=== PATIENT | female | born 1995 | race Caucasian/White ===

== ENCOUNTER → 2016-11-29 | Outpatient (CLI) | payer BC ==
[2016-11-29 18:21] LABS: CH 29.2; CHCM 32.8; HCT 42.7 % (34.0-46.0); HDW 2.27; HGB 14.2 gm/dL (11.4-16.0); MCH 29.8 pg (25.0-35.0); MCHC 33.2 g/dL (31.0-37.0); MCV 89.5 fL (80.0-100.0); RBC 4.76 m/uL (3.80-5.40); RDW 12.8 % (11.5-15.5); WBC 10.1 k/uL (3.8-10.6)
[2016-11-29 18:37] LABS: ALT 34 U/L (9-52); AST 18 U/L (14-36); Alkaline Phosphatase 56 U/L (38-126); Anion Gap 10 mmol/L; Blood Urea Nitrogen 12 mg/dL (7-17); C Reactive Protein <5.0 mg/L (<10.0); Calcium 9.7 mg/dL (8.4-10.2); Carbon Dioxide 25 mmol/L (22-30); Chloride 103 mmol/L (98-107); Glucose 115 mg/dL (74-99); Non-African American GFR(MDRD) >60 (>60 ml/min/1.73 sqM); Sodium 138 mmol/L (137-145); Total Bilirubin 0.4 mg/dL (0.2-1.3)
[2016-11-29 21:33] LABS: Erythrocyte Sedimentation Rate 2 mm/hr (0-20)
[2016-11-30 01:09] LABS: Gliadin AB IgA, Deaminated NEGATIVE (NEGATIVE); Gliadin AB IgG, Deaminated NEGATIVE (NEGATIVE); Tis Transglutaminase IgA Unit <0.5 AI; Tis Transglutaminase IgG Unit <0.8 U/mL
== END | disposition home or self-care (01) ==
LOC: LABMAIN 17:39
PROVIDERS: ATTEND Internal Medicine Gastroenterology
DX: F41.9 Anxiety disorder, unspecified (principal)
CPT/HCPCS: 36415; 80053; 83516; 85027; 85652; 86140

== ENCOUNTER 2017-03-03 16:40 | Inpatient (IN) | payer BC, MEDICAID ==
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
[2017-03-03 20:34] LABS: Amphetamine Screen,Urine Not Detected (NotDetected); Barbiturate Screen,Urine Not Detected (NotDetected); Benzodiazepines Screen,Urine Not Detected (NotDetected); Cocaine Screen,Urine Not Detected (NotDetected); Methadone Screen, Urine Not Detected (NotDetected); Opiate Screen,Urine Not Detected (NotDetected); Oxycodone Screen, Urine Not Detected (NotDetected); Phencyclidine Screen,Urine Not Detected (NotDetected); Tricyclic Antidepressant,Urine Not Detected (NotDetected); Urn Cannabinoid Scrn Detected (NotDetected)
[2017-03-03] MEDS ORDERED: MAG HYDROX/AL HYDROX/SIMETH 30 ML CUP PO PRN (21:27)
[2017-03-03] MEDS ORDERED: MAGNESIUM HYDROXIDE 2,400 MG/10 ML CUP PO PRN (21:27)
[2017-03-03] MEDS ORDERED: ZIPRASIDONE 20 MG VIAL IM PRN (21:29)
[2017-03-03] MEDS ORDERED: LORazepam 2 MG/ML INJ IM PRN (21:30)
[2017-03-03] MEDS ORDERED: OLANZapine ODT 10 MG TAB PO PRN (21:31)
[2017-03-04] MEDS: LORazepam 1 MG TAB PO PRN (00:20)
[2017-03-04 08:31] LABS: Basophils % (A) 1 %; Eosinophils # (A) 0.1 k/uL (0-0.7); Eosinophils % (A) 2 %; HCT 45.1 % (34.0-46.0); HGB 14.5 gm/dL (11.4-16.0); Lymphocytes % (A) 24 %; MCH 28.4 pg (25.0-35.0); MCHC 32.1 g/dL (31.0-37.0); MCV 88.4 fL (80.0-100.0); Mean Platelet Volume 7.5; Monocytes # (A) 0.5 k/uL (0-1.0); Monocytes % (A) 6 %; Neutrophils # (A) 5.4 k/uL (1.3-7.7); Neutrophils % (A) 66 %; Platelet Count 253 k/uL (150-450); RDW 14.1 % (11.5-15.5); WBC 8.2 k/uL (3.8-10.6)
[2017-03-04 09:15] LABS: ALT 33 U/L (9-52); AST 23 U/L (14-36); Albumin 4.8 g/dL (3.5-5.0); Alkaline Phosphatase 47 U/L (38-126); Anion Gap 14 mmol/L; Blood Urea Nitrogen 10 mg/dL (7-17); Calcium 10.3 mg/dL (8.4-10.2); Carbon Dioxide 25 mmol/L (22-30); Chloride 103 mmol/L (98-107); Glucose 79 mg/dL (74-99); Sodium 142 mmol/L (137-145); Total Bilirubin 1.4 mg/dL (0.2-1.3); Total Protein 7.5 g/dL (6.3-8.2)
[2017-03-04] MEDS: NICOTINE 14MG/24HR PATCH TRANSDERM SCH (09:55)
[2017-03-04] MEDS: ARIPiprazole 10 MG TAB PO SCH (09:55)
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
[2017-03-05] MEDS: NICOTINE 14MG/24HR PATCH TRANSDERM SCH (09:34)
[2017-03-05] MEDS: ARIPiprazole 10 MG TAB PO SCH (09:34)
--- NOTE | 2017-03-05 12:28 | P.PN ---
Progress Note - Text interval history: The patient is found in group she follows me to an interview room. She continues to demonstrate a disorganized thought process and symptoms of psychosis. She did not answer any of my questions in a linear fashion. She continues to refuse the Abilify I attempted to discuss this with her. Mental status exam: The patient is a thin female dressed in her own clothing wearing all black. She has visible tattoos on her upper extremity and neck. She continues to demonstrate disorganized symptoms of psychosis or thought process is not well organized. She talks slowly but moves from topic to topic without a clear link. She asked me questions as if I am involved in these delusional thoughts. Insight and judgment are poor. He demonstrates no verbal or physical aggressiveness she demonstrates no abnormal involuntary movements. Plan: The patient remains acutely psychotic. She is refusing medication. We are awaiting deferral conference. We are monitoring her for safety and encourage her participation in the milieu. We will continue to offer the Abilify as written.
--- NOTE | 2017-03-05 22:17 | CONS ---
CONSULTATION DATE OF SERVICE: 03/05/2017 I am covering for Dr. Cuellar. Please note the patient is extremely paranoid, not willing to be interviewed or examined. Please call when the patient's affect improves. EDELL / IJN: [id number] /
[2017-03-06] MEDS: ARIPiprazole 10 MG TAB PO SCH (09:55)
[2017-03-06] MEDS: NICOTINE 14MG/24HR PATCH TRANSDERM SCH (09:55)
--- NOTE | 2017-03-06 15:36 | P.PN ---
Progress Note - Text Interval history: The patient is found in the hallway she follows me to an interview room. She initially asks if we can talk even though she is not wearing shoes. During this session she indicates she feels that she has been "bought". She continues to feel that the food is poisoned and she has not been eating well. I did discuss this with staff and with encouragement they were able get her to eat some food during lunch. The patient states she doesn't believe I'm her doctor and she does not believe that this is a psychiatric unit. Mental status exam: The patient is alert she seated calmly in the chair. Because of her paranoid and persecutory delusions she is fairly argumentative. She indicates she does not trust the information I'm providing to her. There is some disorganization of thought process. Insight and judgment are poor. She answers no other questions asked of her. It is quite difficult getting her to leave the interview room as she will sit there for several minutes before leaving. Plan: The patient's is offered Abilify she is not complying with the medication. We will await intervention via the court to evaluate her need for involuntary treatment. Vital signs reviewed. We will encourage her to appropriately hydrate and eat.
[2017-03-06] MEDS: LORazepam 1 MG TAB PO PRN (20:51)
[2017-03-06] MEDS: ACETAMINOPHEN TAB 325 MG TAB PO PRN (20:51)
[2017-03-07] MEDS: ARIPiprazole 10 MG TAB PO SCH (08:48)
[2017-03-07] MEDS: NICOTINE 14MG/24HR PATCH TRANSDERM SCH (08:48)
[2017-03-07] MEDS: LORazepam 1 MG TAB PO PRN (08:48)
[2017-03-07] MEDS: IBUPROFEN 600 MG TAB PO PRN (09:33)
--- NOTE | 2017-03-07 12:07 | P.PN ---
Progress Note - Text Interval history: The patient is found in her room she follows me to an interview room. She participated more in the conversation. She states that she is not sure what happened she feels that this is all a "set up" regarding her admission here. She states she met with social work this morning and she is concerned that they are going to make her a 7-year-old and adopted her out. She reports having feelings of anxiety and panic earlier in the day. We tried to review her medications. She did comply with the Abilify for the first time today. Mental status exam: The patient is an alert female appearing her stated age. She is dressed in her own clothing she has a disheveled appearance. Eye contact is intermittent. She has spontaneous speech she is able to provide some brief answers to questions asked in a linear fashion. She continues to demonstrate a paranoid and persecutory thought content. Thought process can be disorganized at times. She was not argumentative today compared to our past several sessions. Insight and judgment are impaired. She demonstrates no verbal or physical aggressiveness she demonstrates no abnormal involuntary movements. She is oriented to person place and date. Plan: The patient will continue on the Abilify we will consider titrating the dose further. Vital signs reviewed her blood pressures elevated as well as her pulse we will monitor further. She is encouraged to participate in the milieu as she can tolerate. Reality orientation will be provided when possible.
[2017-03-07] MEDS ORDERED: IBUPROFEN 600 MG TAB PO SCH (13:00)
[2017-03-07 17:50] LABS: Basophils # (A) 0.1 k/uL (0-0.2); Basophils % (A) 1 %; Eosinophils # (A) 0.2 k/uL (0-0.7); Eosinophils % (A) 2 %; HCT 49.1 % (34.0-46.0); HGB 15.7 gm/dL (11.4-16.0); Lymphocytes # (A) 2.8 k/uL (1.0-4.8); Lymphocytes % (A) 33 %; MCV 87.6 fL (80.0-100.0); Mean Platelet Volume 7.3; Monocytes # (A) 0.5 k/uL (0-1.0); Monocytes % (A) 6 %; Neutrophils # (A) 4.7 k/uL (1.3-7.7); Neutrophils % (A) 56 %; Platelet Count 276 k/uL (150-450); RDW 14.2 % (11.5-15.5); WBC 8.4 k/uL (3.8-10.6)
[2017-03-07 17:59] LABS: ALT 34 U/L (9-52); AST 22 U/L (14-36); Albumin 5.1 g/dL (3.5-5.0); Alkaline Phosphatase 50 U/L (38-126); Anion Gap 13 mmol/L; Blood Urea Nitrogen 10 mg/dL (7-17); Calcium 10.9 mg/dL (8.4-10.2); Carbon Dioxide 29 mmol/L (22-30); Chloride 99 mmol/L (98-107); Glucose 94 mg/dL (74-99); Potassium 4.2 mmol/L (3.5-5.1); Sodium 141 mmol/L (137-145); Total Bilirubin 0.9 mg/dL (0.2-1.3)
[2017-03-07] MEDS ORDERED: ONDANSETRON ODT 4 MG TAB PO PRN (19:53)
[2017-03-08] MEDS: ARIPiprazole 10 MG TAB PO SCH (09:51)
[2017-03-08] MEDS: NICOTINE 14MG/24HR PATCH TRANSDERM SCH (09:53)
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
[2017-03-08] MEDS: ACETAMINOPHEN TAB 325 MG TAB PO PRN (20:19)
[2017-03-09] MEDS: LORazepam 1 MG TAB PO PRN (04:34)
[2017-03-09] MEDS: ACETAMINOPHEN TAB 325 MG TAB PO PRN ×2 (04:34→22:30)
[2017-03-09] MEDS: ARIPiprazole 15 MG TAB PO SCH (09:10)
[2017-03-09] MEDS: NICOTINE 14MG/24HR PATCH TRANSDERM SCH (09:10)
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
[2017-03-10] MEDS: ARIPiprazole 15 MG TAB PO SCH (09:06)
[2017-03-10] MEDS: NICOTINE 14MG/24HR PATCH TRANSDERM SCH (09:06)
--- NOTE | 2017-03-10 09:30 | P.PN ---
Progress Note - Text Interval history: The patient is found in the help desk associate she follows me to an interview room. She reports that her mood is better. She states that she had a good visit from her ex-boyfriend Chilo. It appears there was an unscheduled family meeting conducted yesterday. The social work notes were reviewed. It appears the meeting did not go well. They were both described as being argumentative and it appears the meeting was unproductive overall. The patient states her father is living in the past and doesn't feel that he is trying to help her. She is mainly focused on her upcoming surgery to remove her breast implants. She feels that toxins are being released from them which have caused this whole psychiatric event. She states she wants to be discharged prior to the surgery next week. She indicates that she is doing better with eating. She describes having some difficulty with sleep last night she was offered Zyprexa Zydis and reports feeling terrible after taking that. Mental status exam: The patient is alert she is a thin female appearing her stated age she has a disheveled appearance hygiene is adequate. She continues to participate more in the session each day. She is endorsing no hallucinations she is reporting no suicidal or homicidal ideation. Symptoms of psychosis and thought disorganization continue but they are diminishing. Insight and judgment are limited. She demonstrates no verbal or physical aggressiveness. She demonstrates no abnormal involuntary movements. Plan: The patient's will continue on the Abilify 15 mg daily. She has a court hearing scheduled for tomorrow. I anticipate if she continues to improve she may be appropriate for discharge early next week. We will continue to monitor her ability to participate in her activities of daily living including eating bathing etc. Vital signs reviewed.
[2017-03-11] MEDS: ARIPiprazole 15 MG TAB PO SCH (08:34)
[2017-03-11] MEDS: NICOTINE 14MG/24HR PATCH TRANSDERM SCH (08:35)
--- NOTE | 2017-03-11 11:29 | P.PN ---
Progress Note - Text Interval history: The patient is found in her room she follows me to an interview room. She did attend court this morning but decided to stipulate to the treatment order. She returns from court and states that her mood is "shit" . At first her thoughts are not well organized and she appears suspicious. As the conversation progresses she shares her concerns that she has no one in her life that she can trust. She feels that her parents both lying and manipulating her. She states both Chilo and Jamel aren't using her and she cannot trust them. She worries for the well-being of her son and doesn't know how she'll support herself and him without these other people. Mental status exam: The patient is a thin female at first she seated in a guarded posture. She has been irritable look but as the session progresses she becomes tearful and is more expressive in how she feels. She was able to demonstrate improved insight with some of the conversation. Some paranoid thinking still is present however and she is very distrustful. Over the course of our sessions over the last several days she demonstrates a difficulty retaining information we have previously discussed. She is reporting no auditory or visual hallucinations she is reporting no suicidal or homicidal ideation. Plan: The patient will continue on the Abilify 15 mg daily. She is demonstrating slow improvement. I was able to review neuropsych testing when she was a teenager which demonstrated a below average cognitive ability. She was noted to likely have oppositional defiant symptoms as well. We will continue to monitor her for safety and encourage her full participation in the milieu. Vital signs reviewed.
[2017-03-12] MEDS: NICOTINE 14MG/24HR PATCH TRANSDERM SCH (08:55)
[2017-03-12] MEDS: ARIPiprazole 15 MG TAB PO SCH (08:55)
[2017-03-12] MEDS: IBUPROFEN 600 MG TAB PO PRN (16:58)
--- NOTE | 2017-03-12 19:51 | PN ---
PROGRESS NOTE DATE OF SERVICE: 03/12/2017 CHIEF COMPLAINT: The patient was brought to the emergency room by police escort. She had disorganized behavior. She was making statements that the family and government were out to kill her. She was quite disorganized and distressed. INTERVAL HISTORY: The patient has been doing fairly well. She had a quiet evening last night. She slept fair. Today she has been up. She has been in a good mood today. It is noted that I reviewed the note of Dr. Angel from yesterday, where her mood seemed to be down. What she described was feeling very anxious and uncertain about the court process because she did not understand all of the issues related to the involuntary treatment order. She said today she has a better grasp of it and now sees that there she really does not have any significant concerns about it. I discussed the nature of a 90-day treatment order. She seemed to be comfortable with the process. She said in fact she wants to get into individual therapy and has no issues working with [facility] and continuing on medications. She has been out in the day area. She has been fairly active. She does interact with others. She attends groups and has been able to share some fairly significant issues. The group later described the patient as follows, "The patient demonstrated insight and investment into the activity." The patient had questions about discharge planning. She has not had change in her general health. She tolerates her psychotropic medications. MENTAL STATUS: The patient gave good eye contact. Psychomotor activity was a little restless. Her speech was clear. She was spontaneous and interactive. Her affect was in a reasonable range. Her mood was rather upbeat. She smiled. She was friendly. She did not appear to be distressed. ASSESSMENT: I will continue the current diagnosis and treatment plan. I will continue psychotropic medications the same. I had an extensive discussion with the patient regarding issues regarding a 90-day treatment order. She seemed to be understanding the issues well and saw that as no impediment to her own progress. MMODL / IJN: [id number] /
[2017-03-12] MEDS: LORazepam 1 MG TAB PO PRN (21:41)
[2017-03-13] MEDS: ARIPiprazole 15 MG TAB PO SCH (09:00)
[2017-03-13] MEDS: LORazepam 1 MG TAB PO PRN ×3 (09:01→18:16)
[2017-03-13] MEDS: NICOTINE 14MG/24HR PATCH TRANSDERM SCH (09:47)
--- NOTE | 2017-03-13 19:10 | PN ---
PROGRESS NOTE DATE OF SERVICE: 03/13/2017. CHIEF COMPLAINT: The patient was brought to the emergency room by police. She had disorganized behavior. She was making statements that the family and government were out to kill her. She was quite disorganized and distressed. INTERVAL HISTORY: Patient has been doing fairly well. She had some distress on Tuesday after the court hearing. By her account she said she just did not understand all of the paperwork and other issues relating to that. Once she was able to get some clarifications, she said she has felt much better. She was doing well yesterday. She continues to do well today. She comes out in the unit. She will interact with others. She has had a good mood. She has been attending groups and has been appropriate. She has not had change in her general health. She tolerates his psychotropic medications. MENTAL STATUS: Patient gave good eye contact. Psychomotor activity and speech were normal. Her affect was in a reasonable range. She smiled. She was friendly. Her mood was even. She was not distressed. ASSESSMENT: I will continue the current diagnosis and treatment plan. I will continue psychotropic medications the same. Patient appears to be making good progress. I would anticipate early discharge. MMODL / IJN: [id number] /
[2017-03-14] MEDS: ARIPiprazole 15 MG TAB PO SCH (08:26)
[2017-03-14] MEDS: NICOTINE 14MG/24HR PATCH TRANSDERM SCH (08:34)
[2017-03-14 09:07] VITALS: BMI 20.5
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
[2017-03-14] MEDS: LORazepam 1 MG TAB PO PRN ×2 (12:46→22:12)
[2017-03-15 07:21] VITALS: BP 89/52; PULSE 90; RESP 16; TEMP 98.8
[2017-03-15] MEDS: ARIPiprazole 15 MG TAB PO SCH (08:51)
--- NOTE | 2017-03-15 09:42 | P.DS ---
Providers Date of admission: 03/03/17 20:24 Expected date of discharge: 03/15/17 Attending physician: Sumeet Angel Consults: 03/03/17 21:27 Consult Physician Routine Consulting Provider: Haris Cuellar Consult Reason/Comments: Medical Management Do you want consulting provider notified?: Already Contacted Primary care physician: Haris Cuellar - Discharge Diagnosis(es) (1) Psychosis Current Visit: Yes Status: Acute Priority: High Hospital Course: Brief summary of admission note: This patient is a 21-year-old single female who was admitted to the mental health unit through the emergency room for acute psychosis. She was petition by a delicatessen goods stock clerk's deputy as the patient was found outside of her ex-boyfriend's house in her car for 6 hours. She had reported her concern that his family and the government were out to kill her. She had accused the police detention attendant of being sent to kill her and that her ex- boyfriend's family was going to kill her son. With initial sessions the patient was very guarded suspicious and difficult to interview. For full details please refer to my psychiatric evaluation dated 03/04/2017. Summary of hospital course: The patient was admitted to the mental health unit on a petition and clinical certificate. She participated in a deferral conference with her briar wood sorter but decided not to defer. However when it was time for her hearing she decided to stipulate to a treatment order. The patient was started on Abilify and the dose was titrated during the course of her stay. She tolerated the medication without any complaint of side effect. Very slowly her symptoms of psychosis remitted. Over the last 2 days she has demonstrated significant improvement. She previously was demonstrating severe disorganization of thought and labile affect and that has dramatically improved as well. She demonstrated no aggressive behavior. She is noting a resolution of any paranoid thoughts. She has demonstrated future oriented thinking. She was seen by the internal medicine physician for routine history and physical exam. Mental status exam: The patient is a thin female appearing her stated age. Hygiene grooming are appropriate and much improved. She reports her mood is good. She is happy that she is being discharged today. She is reporting no suicidal or homicidal ideation intent or plan. At no time did she make any suicidal or homicidal statements. She is endorsing no auditory or visual hallucinations she is endorsing no specific delusions. She no longer demonstrates evidence of paranoid thinking. Affect is appropriately reactive and appears euthymic area she demonstrates no verbal or physical aggressiveness. She demonstrates no abnormal involuntary movements. She is oriented to person place and date. Insight and judgment have significantly improved. She does not appear hypomanic or manic and demonstrates no tangential thinking loose associations or flight of ideas. Impressions 1. Psychosis unspecified, rule out primary psychotic etiology 2. Rule out cannabis use disorder Plan: The patient will be discharged mental health unit to return home. She will continue on Abilify 15 mg daily. Social work will arrange [facility] She is instructed to abstain from any use of alcohol or marijuana and she is agreeable. There is no imminent safety risk she is appropriate for transition to outpatient care. She is instructed to return to the hospital any acute safety concerns. Patient Condition at Discharge: Stable Plan - Discharge Summary Discharge Rx Participant: No New Discharge Prescriptions: New ARIPiprazole [Abilify] 15 mg PO DAILY #30 tab Discharge Medication List ARIPiprazole [Abilify] 15 mg PO DAILY #30 tab 03/15/17 [Rx] Follow up Appointment(s)/Referral(s): [facility] [Outside] - 03/17/17 12:30 pm ([place] ) Haris Cuellar MD [Primary Care Provider] - 1-2 days
== END 2017-03-15 10:46 | disposition home or self-care (01) | DRG 885 ==
LOC: EC 16:40 → 3MHU 20:24
PROVIDERS: ADMIT Psychiatry & Neurology Psychiatry; ATTEND Psychiatry & Neurology Psychiatry
DX: F23 Brief psychotic disorder (principal); F12.10 Cannabis abuse, uncomplicated; F17.200 Nicotine dependence, unspecified, uncomplicated; R51 Headache; F41.0 Panic disorder [episodic paroxysmal anxiety]; Z82.49 Family history of ischemic heart disease and other diseases of the circulatory system; Z81.8 Family history of other mental and behavioral disorders; Z98.82 Breast implant status; Z91.040 Latex allergy status; Z90.89 Acquired absence of other organs
CPT/HCPCS: 80053; 80306; 81025; 82075; 84443; 85025; 93005; 99285

== ENCOUNTER 2017-05-13 18:57 | Emergency (ER) | payer BC, MEDICAID, OTHER ==
[2017-05-13 19:02] VITALS: BP 125/59; PULSE 84; RESP 18; TEMP 98.3
--- NOTE | 2017-05-13 19:47 | ED ---
Wound/Laceration HPI - General Chief Complaint: Wound/Laceration Stated Complaint: LACERATION LEFT INDEX FINGER Time Seen by Provider: 05/13/17 19:03 Source: patient Mode of arrival: ambulatory Limitations: no limitations - History of Present Illness Initial Comments: 21-year-old female patient presented to the emergency department today for evaluation of a laceration to her left index finger. Patient states that approximately one hour ago she was at work when she accidentally cut the finger with a razor. She denies any difficulty with range of motion. States she does have the bleeding under control. She is unsure when she had her last tetanus vaccine. She denies any other injuries. Patient denies any headache, neck pain , back pain, chest pain, shortness of breath, dizziness, weakness, abdominal pain, nausea, vomiting, or difficulties with bowel movements or urination. - Related Data Previous Rx's Medication Instructions Recorded ARIPiprazole [Abilify] 15 mg PO DAILY #30 tab 03/15/17 Allergies Allergy/AdvReac Type Severity Reaction Status Date / Time latex Allergy Unknown Verified 03/10/17 21:33 Review of Systems ROS Statement: Those systems with pertinent positive or pertinent negative responses have been documented in the HPI. ROS Other: All systems not noted in ROS Statement are negative. 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, "breast implant illness" History of Any Multi-Drug Resistant Organisms: None Reported Past Surgical History: Breast Surgery, Section, Tonsillectomy Additional Past Surgical History / Comment(s): breast implants removed Past Anesthesia/Blood Transfusion Reactions: No Reported Reaction Past Psychological History: Anxiety, Panic Disorder Smoking Status: Current every day smoker Past Alcohol Use History: None Reported Past Drug Use History: None Reported - Past Family History Father Family Medical History: Hypertension Mother Additional Family Medical History / Comment(s): bipolar General Exam Limitations: no limitations General appearance: alert, in no apparent distress, other (This is a well- developed, well-nourished adult female patient in no acute distress. Vital signs upon presentation are temperature 98.3F, pulse 84, respirations 18, blood pressure 125/59, pulse ox 100% on room air.) Neck exam: Present: normal inspection. Absent: tenderness, meningismus, lymphadenopathy Respiratory exam: Present: normal lung sounds bilaterally. Absent: respiratory distress, wheezes, rales, rhonchi, stridor Cardiovascular Exam: Present: regular rate, normal rhythm, normal heart sounds. Absent: systolic murmur, diastolic murmur, rubs, gallop, clicks Extremities exam: Present: full ROM, normal capillary refill, other (There is a 0.5 cm laceration noted over the proximal interphalangeal joint. This is a superficial laceration. Bleeding is controlled. Skin is otherwise pink, warm, and dry. Cap refills less than 3 seconds. Radial pulses 2+ and equal bilaterally.). Absent: normal inspection, tenderness, pedal edema, joint swelling, calf tenderness Neurological exam: Present: alert, oriented X3, CN II-XII intact Psychiatric exam: Present: normal affect, normal mood Skin exam: Present: warm, dry, intact, normal color. Absent: rash Course Vital Signs 05/13/17 18:59 Temperature 98.3 F Pulse Rate 84 Respiratory 18 Rate Blood Pressure 125/59 O2 Sat by Pulse 100 Oximetry Medical Decision Making - Medical Decision Making 21-year-old female patient presented to the emergency department today for evaluation of a laceration to the left index finger. Physical examination did reveal 0.5 cm laceration to the left index finger. This is a very superficial laceration does not require closure. I did discuss with patient wound care techniques. She is instructed to follow-up with her primary care physician for recheck in 1-2 days. She is instructed to return here immediately for any new, worsening, or concerning symptoms. She verbalizes understanding and agrees with this plan. Disposition Clinical Impression: Laceration of left index finger Disposition: HOME SELF-CARE Condition: Good Instructions: Finger Laceration (ED) Additional Instructions: Keep wound clean and dry. Use splint to avoid reopening the wound. Follow-up with your primary care physician for recheck in 1-2 days. Return here immediately for any new, worsening, or concerning symptoms. Referrals: Haris Cuellar MD [Primary Care Provider] - 1-2 days Time of Disposition: 19:47
[2017-05-13] MEDS ORDERED: DIPH,PERTUS(ACELL)TETVAC-LF 0.5 ML VIAL IM ONE (19:52)
== END 2017-05-13 20:16 | disposition home or self-care (01) ==
LOC: EC 18:57
DX: S61.211A Laceration without foreign body of left index finger without damage to nail, initial encounter (principal); F17.200 Nicotine dependence, unspecified, uncomplicated; Z91.040 Latex allergy status; Z23 Encounter for immunization; W45.8XXA Other foreign body or object entering through skin, initial encounter; Y92.69 Other specified industrial and construction area as the place of occurrence of the external cause; Y99.0 Civilian activity done for income or pay
CPT/HCPCS: 90471; 90715; 99282

== ENCOUNTER 2017-06-21 13:17 | Inpatient (IN) | payer BC, MEDICAID ==
[2017-06-21 14:38] LABS: Amphetamine Screen,Urine Not Detected (NotDetected); Barbiturate Screen,Urine Not Detected (NotDetected); Benzodiazepines Screen,Urine Not Detected (NotDetected); Cocaine Screen,Urine Detected (NotDetected); Methadone Screen, Urine Not Detected (NotDetected); Opiate Screen,Urine Not Detected (NotDetected); Oxycodone Screen, Urine Not Detected (NotDetected); Phencyclidine Screen,Urine Not Detected (NotDetected); Tricyclic Antidepressant,Urine Not Detected (NotDetected); Urn Cannabinoid Scrn Detected (NotDetected)
[2017-06-21] MEDS ORDERED: ACETAMINOPHEN TAB 325 MG TAB PO STA (14:58)
--- NOTE | 2017-06-21 15:26 | ED ---
Psych HPI - General Source: patient, family Mode of arrival: ambulatory <Brandon Pink - Last Filed: 06/21/17 15:24> <Neto Burt - Last Filed: 06/21/17 17:41> - General Chief Complaint: Psychiatric Symptoms Stated Complaint: suicidal Time Seen by Provider: 06/21/17 13:41 - History of Present Illness Initial Comments: This 21-year-old white female presents for further psychiatric treatment. She states that she has been feeling depressed since she is 9 years old. She's been having suicidal ideations recently with the plan to shoot herself in the mouth to kill herself. She does have significant drug problems as well. She apparently has been abusing multiple drugs and would like to obtain help with this problem as well. She currently denies any actual medical complaints. She denies any other modifying factors. (Brandon Pink) - Related Data Previous Rx's Medication Instructions Recorded ARIPiprazole [Abilify] 15 mg PO DAILY #30 tab 03/15/17 Allergies Allergy/AdvReac Type Severity Reaction Status Date / Time latex Allergy Unknown Verified 06/21/17 13:59 Review of Systems ROS Other: All systems not noted in ROS Statement are negative. <Brandon Pink - Last Filed: 06/21/17 15:24> ROS Other: All systems not noted in ROS Statement are negative. <Neto Burt - Last Filed: 06/21/17 17:41> ROS Statement: Those systems with pertinent positive or pertinent negative responses have been documented in the HPI. 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, "breast implant illness" History of Any Multi-Drug Resistant Organisms: None Reported Past Surgical History: Breast Surgery, Section, Tonsillectomy Additional Past Surgical History / Comment(s): breast implants removed Past Anesthesia/Blood Transfusion Reactions: No Reported Reaction Past Psychological History: Anxiety, Panic Disorder Smoking Status: Current every day smoker Past Alcohol Use History: Occasional Past Drug Use History: Cocaine, Heroin, Marijuana, Methamphetamine - Past Family History Father Family Medical History: Hypertension Mother Additional Family Medical History / Comment(s): bipolar <Brandon Pink - Last Filed: 06/21/17 15:24> General Exam Limitations: no limitations <Brandon Pink - Last Filed: 06/21/17 15:24> <Neto Burt - Last Filed: 06/21/17 17:41> - General Exam Comments Initial Comments: GENERAL: The patient is well nourished and well hydrated. VITAL SIGNS: Heart rate, blood pressure, respiratory rate reviewed as recorded in nurse's notes. EYES: Pupils are round and reactive. Extraocular movements are intact. No conjunctival / lid redness or swelling. ENT: No external evidence of injury, swelling, or ecchymosis. Airway is patent. Throat is clear. NECK: Nontender. No swelling or evidence of injury. No subcutaneous emphysema. Trachea is midline. No thyroid mass. HEART: Regular rate and rhythm. Good peripheral pulses. LUNGS/CHEST: Breath sounds clear and equal bilaterally. No rales, rhonchi, or wheezes. No ecchymosis, subcutaneous emphysema, or tenderness. ABDOMEN: Abdomen soft without tenderness. No palpable masses or organomegaly. No peritoneal signs. No abdominal wall swelling or ecchymosis. EXTREMITIES: No extremity tenderness. Normal muscle tone and function. No thoracolumbar tenderness. NEUROLOGIC: Sensation is grossly intact. Cranial nerve exam reveals face is symmetrical, tongue is midline, speech is clear. SKIN: No abrasions or ecchymosis is noted. No induration or masses noted. PSYCHIATRIC: Alert and oriented. Appropriate behavior and judgment. Quite talkative. (Brandon Pink) Vital Signs 06/21/17 06/21/17 13:34 15:30 Temperature 98.1 F Pulse Rate 103 H 76 Respiratory 22 18 Rate Blood Pressure 115/80 126/74 O2 Sat by Pulse 99 100 Oximetry Medical Decision Making <Brandon Pink - Last Filed: 06/21/17 15:24> <Neto Burt - Last Filed: 06/21/17 17:41> - Medical Decision Making The patient was seen and examined. The urine drug screen is positive for multiple substances. Alcohol breath test is negative. It is felt as though she is medically cleared for further psychiatric treatment. (Brandon Pink) This is a 21-year-old female who is going to be admitted to the psychiatric for further evaluation of a manic behavior. Patient will have a urine test done. Her urine did show positive for marijuana, methamphetamine and cocaine. Dr. Burt (Neto Burt) - Lab Data Lab Results 06/21/17 Range/Units 13:59 Urine Opiates Screen Not Detected (NotDetected) Ur Oxycodone Screen Not Detected (NotDetected) Urine Methadone Screen Not Detected (NotDetected) Ur Propoxyphene Screen Not Detected (NotDetected) Ur Barbiturates Screen Not Detected (NotDetected) U Tricyclic Antidepress Not Detected (NotDetected) Ur Phencyclidine Scrn Not Detected (NotDetected) Ur Amphetamines Screen Not Detected (NotDetected) U Methamphetamines Scrn Detected H (NotDetected) U Benzodiazepines Scrn Not Detected (NotDetected) Urine Cocaine Screen Detected H (NotDetected) U Marijuana (THC) Screen Detected H (NotDetected) Disposition Is patient prescribed a controlled substance at d/c from ED?: No <Brandon Pink - Last Filed: 06/21/17 15:24> <Neto Burt - Last Filed: 06/21/17 17:41> Clinical Impression: Major depression, Suicidal ideation, Polysubstance (excluding opioids) dependence Disposition: TRANSFER TO PSYCH HOSP/UNIT Condition: Fair Referrals: Haris Cuellar MD [Primary Care Provider] - 1-2 days
[2017-06-21] MEDS ORDERED: IBUPROFEN 600 MG TAB PO STA (17:15)
[2017-06-21] MEDS ORDERED: MAG HYDROX/AL HYDROX/SIMETH 30 ML CUP PO PRN (19:50)
[2017-06-21] MEDS ORDERED: ZIPRASIDONE 20 MG VIAL IM PRN (19:50)
[2017-06-21] MEDS ORDERED: LORazepam 1 MG TAB PO PRN (19:50)
[2017-06-21] MEDS ORDERED: MAGNESIUM HYDROXIDE 2,400 MG/10 ML CUP PO PRN (19:50)
[2017-06-21] MEDS ORDERED: ACETAMINOPHEN TAB 325 MG TAB PO PRN (19:50)
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
[2017-06-22 10:41] LABS: Basophils # (A) 0.1 k/uL (0-0.2); Basophils % (A) 1 %; Eosinophils # (A) 0.1 k/uL (0-0.7); Eosinophils % (A) 2 %; HCT 45.8 % (34.0-46.0); HGB 15.4 gm/dL (11.4-16.0); Lymphocytes # (A) 1.8 k/uL (1.0-4.8); Lymphocytes % (A) 24 %; MCH 28.2 pg (25.0-35.0); MCHC 33.5 g/dL (31.0-37.0); MCV 84.1 fL (80.0-100.0); Mean Platelet Volume 6.9; Monocytes # (A) 0.4 k/uL (0-1.0); Monocytes % (A) 5 %; Neutrophils # (A) 4.9 k/uL (1.3-7.7); Neutrophils % (A) 67 %; Platelet Count 247 k/uL (150-450); RBC 5.45 m/uL (3.80-5.40); RDW 12.1 % (11.5-15.5); WBC 7.4 k/uL (3.8-10.6)
[2017-06-22] MEDS: DIVALPROEX 500 MG TABLET.DR PO SCH ×2 (10:43→21:23)
[2017-06-22] MEDS: NICOTINE 14MG/24HR PATCH TRANSDERM SCH (10:43)
[2017-06-22] MEDS: ARIPiprazole 10 MG TAB PO SCH (10:43)
[2017-06-22 10:52] LABS: ALT 24 U/L (9-52); AST 22 U/L (14-36); Albumin 5.2 g/dL (3.5-5.0); Alkaline Phosphatase 57 U/L (38-126); Anion Gap 16 mmol/L; Blood Urea Nitrogen 15 mg/dL (7-17); Calcium 10.5 mg/dL (8.4-10.2); Carbon Dioxide 24 mmol/L (22-30); Chloride 104 mmol/L (98-107); Cholesterol 237 mg/dL (<200); Glucose 80 mg/dL (74-99); HDL Cholesterol 71 mg/dL (40-60); LDL Cholesterol,Calculated 153 mg/dL (0-99); Potassium 4.6 mmol/L (3.5-5.1); Sodium 144 mmol/L (137-145); Total Protein 7.9 g/dL (6.3-8.2); Triglycerides 65 mg/dL (<150)
[2017-06-22] MEDS: hydrOXYzine PAMOATE 25 MG CAP PO PRN (11:24)
[2017-06-22 17:53] LABS: Hemoglobin A1C 5.1 % (4.0-6.0)
--- NOTE | 2017-06-23 07:30 | P.HPIM ---
History of Present Illness H&P Date: 06/22/17 Chief Complaint: Aggravation of depression. This is a medical consultation note on a 21-year-old white female who is fairly well-known to my practice with an underlying history of severe depression. The patient has taken Abilify in the past and states significant element of the blues. The patient is appropriately admitted and given her symptomatology, appropriately it readmitted to the mental health unit. Less than a year ago she had similar symptoms Drug screen is positive for cocaine with methamphetamines. 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, "breast implant illness" History of Any Multi-Drug Resistant Organisms: None Reported Past Surgical History: Breast Surgery, Section, Tonsillectomy Additional Past Surgical History / Comment(s): breast implants removed Past Anesthesia/Blood Transfusion Reactions: No Reported Reaction Past Psychological History: Anxiety, Panic Disorder Smoking Status: Current every day smoker Past Alcohol Use History: Occasional Past Drug Use History: Cocaine, Heroin, Marijuana, Methamphetamine - Past Family History Father Family Medical History: Hypertension Mother Additional Family Medical History / Comment(s): bipolar Medications and Allergies Home Medications Medication Instructions Recorded Confirmed Type ARIPiprazole [Abilify] 15 mg PO DAILY #30 tab 03/15/17 06/21/17 Rx Allergies Allergy/AdvReac Type Severity Reaction Status Date / Time latex Allergy Unknown Verified 06/21/17 13:59 Physical Exam Vitals: Vital Signs Temp Pulse Pulse Resp BP BP Pulse Ox 06/22/17 00:07 98.0 F 114 H 16 125/71 06/21/17 18:11 98.3 F 87 20 121/72 99 06/21/17 15:30 76 18 126/74 100 06/21/17 13:34 98.1 F 103 H 22 115/80 99 - Constitutional General appearance: no acute distress - EENT Eyes: EOMI - Neck Neck: no lymphadenopathy - Respiratory Respiratory: bilateral: CTA - Cardiovascular Rhythm: regular Heart sounds: normal: S1, S2 Abnormal Heart Sounds: no S3 Gallop - Gastrointestinal General gastrointestinal: soft, no tenderness Results Labs: Abnormal Lab Results - Last 24 Hours (Table) 06/21/17 Range/Units 13:59 U Methamphetamines Scrn Detected H (NotDetected) Urine Cocaine Screen Detected H (NotDetected) U Marijuana (THC) Screen Detected H (NotDetected) Assessment and Plan (1) Major depression Current Visit: Yes Status: Acute Code(s): F32.9 - MAJOR DEPRESSIVE DISORDER , SINGLE EPISODE, UNSPECIFIED SNOMED Code(s): 707629088 (2) Suicidal ideation Current Visit: Yes Status: Acute Code(s): R45.851 - SUICIDAL IDEATIONS SNOMED Code(s): 4092653 (3) Psychosis Current Visit: No Status: Acute Priority: High Code(s): F29 - UNSP PSYCHOSIS NOT DUE TO A SUBSTANCE OR KNOWN PHYSIOL COND SNOMED Code(s): 16806199 (4) Cocaine abuse Current Visit: Yes Status: Acute Code(s): F14.10 - COCAINE ABUSE, UNCOMPLICATED SNOMED Code(s): 98801180 (5) Methamphetamine abuse Current Visit: Yes Status: Acute Code(s): F15.10 - OTHER STIMULANT ABUSE, UNCOMPLICATED SNOMED Code(s): 763092025 (6) Cannabis abuse Current Visit: Yes Status: Acute Code(s): F12.10 - CANNABIS ABUSE, UNCOMPLICATED SNOMED Code(s): 18083878 Plan: We'll continue follow from a medical perspective. Discussed need for appropriate inpatient treatment with counseling and inpatient psychiatric evaluation per the patient is agreeable. Reconcile medical medications as necessary. See orders otherwise. Time with Patient: Greater than 30
[2017-06-23] MEDS: NICOTINE 14MG/24HR PATCH TRANSDERM SCH (08:12)
[2017-06-23] MEDS: DIVALPROEX 500 MG TABLET.DR PO SCH ×2 (08:13→20:53)
[2017-06-23] MEDS: ARIPiprazole 10 MG TAB PO SCH (08:13)
--- NOTE | 2017-06-23 09:27 | P.PN ---
Progress Note - Text Progress Note Date: 06/23/17 Patient was seen for a routine follow-up examination. She continues to be polite friendly cheerful and cooperative. She is said she slept better last night, her emotions are under better control, is able to defend herself when somebody encroaches her personal space or property etc. She denies any adverse effects from home Depakote or Abilify. She wanted to know her diagnosis and she was counseled about the diagnosis and the proper treatment for that. She socializes with others and attends groups. This is a white ambulatory female with good hygiene. She has multiple tattoos. She is not hyperactive today. She is still talkative, but, she is able to focus lot better. Her mood is cheerful and affect is appropriate to the thought content. She did not become labile today. She denies hallucinations, delusional thinking, suicide and homicide thoughts. Her insight is improving. She is well oriented with adequate memory concentration etc. Plan: Continue Abilify, Depakote, groups and other activities.
[2017-06-23] MEDS: hydrOXYzine PAMOATE 25 MG CAP PO PRN (16:43)
[2017-06-23 18:55] VITALS: RESP 16; TEMP 98.2
[2017-06-24 07:11] VITALS: BP 120/57; PULSE 70
--- NOTE | 2017-06-24 09:29 | P.DS ---
Providers Date of admission: 06/21/17 17:42 Expected date of discharge: 06/24/17 Attending physician: Fabián Proctor Consults: 06/21/17 19:50 Consult Physician Routine Consulting Provider: Haris Cuellar Consult Reason/Comments: H&P, with medical followup Do you want consulting provider notified?: Yes, Notify in am Primary care physician: Haris Cuellar Hospital Course: Patient had her psychiatric evaluation, physical examination and psychosocial evaluation. After psychiatric evaluation she was counseled and it was agreed for her to continue Abilify at the dose of 10 mg a day and to start her on Depakote 500 mg twice a day for more stabilization. She took these medications without any adverse effects. She did throw up about 8 hours after the last dose of Depakote once which probably is unrelated to Depakote. Next time she threw up about 3 hours after taking Depakote which again does not appear to be related to Depakote and maybe to some other events or things. Patient has history of inducing vomiting in the past to control her diet. But she insists that she did not induce vomiting this time. She was advised to take her Depakote after eating her breakfast or dinner instead of in the empty stomach. She said she will do that. She attended groups, interacted with staff and other patients got along well with everyone without any untoward incident. She continues to deny suicide and homicide thoughts. In view of all these it was agreed to discharge her. Condition at the time of discharge: This is a white ambulatory female with good hygiene. She is polite friendly cheerful and cooperative. She does not show any psychomotor agitation or retardation. Her speech is spontaneous relevant and goal-directed. Her mood is cheerful and affect is appropriate. She denies suicide and homicide thoughts. She denies hallucinations and delusional thinking. She is well oriented with adequate memory concentration general fund of knowledge etc. Her insight and judgment have improved. Diagnosis on discharge: Probable unspecified bipolar and related disorder F 31.9. Cocaine use disorder severe F 14.20. Cannabis use disorder F 12.20. 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 ALLERGY to latex. Patient was advised and agreed to take her medications as prescribed including Depakote after meals, not to drink alcohol or use drugs, to seek DBT and learn better coping skills, not to drive or operate missionary if she feels sleepy, to inform her doctor if she gets , to call her psychiatrist or therapist if she gets any suicidal thoughts and if he cannot get hold of them to go to the nearest ER, to get Depakote level, CBC with differential, AST and ALT 10 hours after the last dose of Depakote during next week. Plan - Discharge Summary Discharge Rx Participant: No New Discharge Prescriptions: New ARIPiprazole [Abilify] 10 mg PO DAILY 30 Days #30 tab Divalproex [Depakote] 500 mg PO BID 30 Days #30 tablet. Discontinued ARIPiprazole [Abilify] 15 mg PO DAILY #30 tab Discharge Medication List ARIPiprazole [Abilify] 10 mg PO DAILY 30 Days #30 tab 06/24/17 [Rx] Divalproex [Depakote] 500 mg PO BID 30 Days #30 tablet. 06/24/17 [Rx] Follow up Appointment(s)/Referral(s): [facility] [Outside] - 06/27/17 3:00 pm (Mandy Corbett ) Haris Cuellar MD [Primary Care Provider] - 1-2 days Ambulatory/Diagnostic Orders: ALT [LAB.AMB] Time Frame: 1 Week, Facility: [facility], Location: Laboratory Department AST [LAB.AMB] Location: Determined By Patient Complete Blood Count w/diff [LAB.AMB] Location: Determined By Patient Miscellaneous Lab Order [LAB.AMB] Time Frame: 1 Week, Facility: [facility], Location: Laboratory Department Patient Instructions/Handouts: How to Stop Smoking (DC), Depression (DC) Activity/Diet/Wound Care/Special Instructions: Take all medications as prescribed and keep your follow-up appointment. Do not drink alcohol or use any street drugs or drugs not prescribed for you. No access to guns or other weapons.
[2017-06-24] MEDS: DIVALPROEX 500 MG TABLET.DR PO SCH (09:38)
[2017-06-24] MEDS: NICOTINE 14MG/24HR PATCH TRANSDERM SCH (09:38)
[2017-06-24] MEDS: ARIPiprazole 10 MG TAB PO SCH (09:38)
== END 2017-06-24 10:36 | disposition home or self-care (01) | DRG 885 ==
LOC: EC 13:17 → 3MHU 17:42
PROVIDERS: ADMIT Psychiatry & Neurology Psychiatry; ATTEND Psychiatry & Neurology Psychiatry
DX: F31.9 Bipolar disorder, unspecified (principal); F14.20 Cocaine dependence, uncomplicated; R45.851 Suicidal ideations; F60.9 Personality disorder, unspecified; F17.200 Nicotine dependence, unspecified, uncomplicated; F41.0 Panic disorder [episodic paroxysmal anxiety]; F29 Unspecified psychosis not due to a substance or known physiological condition; F15.10 Other stimulant abuse, uncomplicated; F12.10 Cannabis abuse, uncomplicated; Z81.8 Family history of other mental and behavioral disorders; Z98.82 Breast implant status; Z79.899 Other long term (current) drug therapy; Z82.49 Family history of ischemic heart disease and other diseases of the circulatory system; Z71.6 Tobacco abuse counseling; Z91.040 Latex allergy status
CPT/HCPCS: 80053; 80061; 80306; 81025; 82075; 83036; 84443; 85025; 99285

== ENCOUNTER → 2017-09-15 | Outpatient (CLI) | payer BC, MEDICAID | END | disposition home or self-care (01) | LOC: LABWHC1 15:34 | PROVIDERS: ATTEND Psychiatry & Neurology Psychiatry | DX: Z53.9 Procedure and treatment not carried out, unspecified reason (principal) ==

== ENCOUNTER → 2017-10-13 | Outpatient (CLI) | payer BC | END | disposition home or self-care (01) | LOC: LABWHC1 10:00 | PROVIDERS: ATTEND Psychiatry & Neurology Psychiatry | DX: Z51.81 Encounter for therapeutic drug level monitoring (principal); Z79.899 Other long term (current) drug therapy | CPT/HCPCS: 36415; 80178 ==

== ENCOUNTER 2018-01-16 00:11 | Inpatient (IN) | payer BC, MEDICAID ==
[2018-01-16] MEDS ORDERED: LORazepam 2 MG/ML INJ IM STA (00:28)
--- NOTE | 2018-01-16 01:21 | ED ---
Psych HPI - General Stated Complaint: Petition Time Seen by Provider: 01/16/18 00:14 Source: patient, police, EMS Mode of arrival: EMS - History of Present Illness Initial Comments: Visit 22-year-old female with a history of depression is brought to the ED today for evaluation of what her dad describes as a break unreality. Per the father the patient has seemed very out of sorts and confused for 2 days. She's been speaking but not making any sense. She's been very anxious. Patient contacted EMS 2 times today because she wanted to be taken to psychiatric facility. After her first arrival she declined transport. After repeat call to 911 the police arrived on scene. Patient came agitated and combative she attempted to take the police officers gun and taser. She required physical restraints. Patient offers no meaningful history. She is acutely agitated, psychotic. She is not making any sense. She expresses concern that her limbs her MB, that she' s can be strapped to a table and put on social media, she expresses concern that they're going to eat her child for Thanksgiving. - Related Data Previous Rx's Medication Instructions Recorded ARIPiprazole [Abilify] 10 mg PO DAILY 30 Days #30 tab 06/24/17 Divalproex [Depakote] 500 mg PO BID 30 Days #30 tablet. 06/24/17 Allergies Allergy/AdvReac Type Severity Reaction Status Date / Time latex Allergy Unknown Verified 06/24/17 04:05 Review of Systems ROS Statement: Those systems with pertinent positive or pertinent negative responses have been documented in the HPI. ROS Other: All systems not noted in ROS Statement are negative. 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, "breast implant illness" History of Any Multi-Drug Resistant Organisms: None Reported Past Surgical History: Breast Surgery, Section, Tonsillectomy Additional Past Surgical History / Comment(s): breast implants removed Past Anesthesia/Blood Transfusion Reactions: No Reported Reaction Past Psychological History: Anxiety, Panic Disorder Smoking Status: Current every day smoker - Past Family History Father Family Medical History: Hypertension Mother Additional Family Medical History / Comment(s): bipolar General Exam - General Exam Comments Initial Comments: Physical Exam GENERAL: Patient is well-developed and well-nourished. Patient is nontoxic and well- hydrated and is in no distress. HENT: Normocephalic, Atraumatic. EYES: PERRL, EOMI PULMONARY: Unlabored respirations. No audible rales rhonchi or wheezing was noted. CARDIOVASCULAR: There is a regular rate and rhythm without any murmurs gallops or rubs. ABDOMEN: Soft and nontender with normal bowel sounds. SKIN: Skin is clear with no lesions or rashes and otherwise unremarkable. Multiple tattoos : Deferred NEUROLOGIC: Patient is alert and oriented x3. Moving all extremities spontaneously MUSCULOSKELETAL: Normal extremities with adequate strength and full range of motion. No lower extremity swelling or edema. No calf tenderness. PSYCHIATRIC: Normal psychiatric evaluation. Limitations: no limitations Limitations: altered mental status Course Vital Signs 01/16/18 01/16/18 00:19 05:24 Temperature 98.0 F Pulse Rate 85 98 Respiratory 17 18 Rate Blood Pressure 125/80 121/58 O2 Sat by Pulse 98 97 Oximetry Medical Decision Making - Medical Decision Making The patient was seen and evaluated history was obtained from her father as well as police Patient appears to be acutely psychotic and agitated IM Ativan was ordered Blood work was ordered Alcohol was negative patient was medically cleared for evaluation by psych who agree the patient is acutely psychotic and warrants admission. I completed the patient's certification for involuntary admission and the patient was admitted upstairs. Patient was given IM Haldol prior to transfer to the psychiatric facility due to persistent agitation. - Lab Data Result diagrams: 01/16/18 00:40 01/16/18 00:40 Lab Results 01/16/18 01/16/18 Range/Units 00:40 00:40 WBC 10.2 (3.8-10.6) k/uL RBC 4.99 (3.80-5.40) m/uL Hgb 13.8 (11.4-16.0) gm/dL Hct 42.5 (34.0-46.0) % MCV 85.1 (80.0-100.0) fL MCH 27.6 (25.0-35.0) pg MCHC 32.4 (31.0-37.0) g/dL RDW 12.6 (11.5-15.5) % Plt Count 260 (150-450) k/uL Neutrophils % 69 % Lymphocytes % 24 % Monocytes % 4 % Eosinophils % 0 % Basophils % 0 % Neutrophils # 7.1 (1.3-7.7) k/uL Lymphocytes # 2.5 (1.0-4.8) k/uL Monocytes # 0.4 (0-1.0) k/uL Eosinophils # 0.0 (0-0.7) k/uL Basophils # 0.0 (0-0.2) k/uL Sodium 140 (137-145) mmol/L Potassium 4.4 (3.5-5.1) mmol/L Chloride 107 (98-107) mmol/L Carbon Dioxide 21 L (22-30) mmol/L Anion Gap 12 mmol/L BUN 13 (7-17) mg/dL Creatinine 0.66 (0.52-1.04) mg/dL Est GFR (CKD-EPI)AfAm >90 (>60 ml/min/1.73 sqM) Est GFR (CKD-EPI)NonAf >90 (>60 ml/min/1.73 sqM) Glucose 120 H (74-99) mg/dL Calcium 10.4 H (8.4-10.2) mg/dL Total Bilirubin 0.7 (0.2-1.3) mg/dL AST 30 (14-36) U/L ALT 28 (9-52) U/L Alkaline Phosphatase 51 (38-126) U/L Total Protein 7.7 (6.3-8.2) g/dL Albumin 4.9 (3.5-5.0) g/dL Valproic Acid <10.0 ug/mL Serum Alcohol <10 mg/dL Disposition Clinical Impression: Psychosis Disposition: TRANSFER TO PSYCH HOSP/UNIT Condition: Fair
[2018-01-16 01:23] LABS: Basophils % (A) 0 %; Eosinophils % (A) 0 %; HCT 42.5 % (34.0-46.0); HGB 13.8 gm/dL (11.4-16.0); Lymphocytes # (A) 2.5 k/uL (1.0-4.8); Lymphocytes % (A) 24 %; MCH 27.6 pg (25.0-35.0); MCHC 32.4 g/dL (31.0-37.0); MCV 85.1 fL (80.0-100.0); Mean Platelet Volume 7.3; Monocytes # (A) 0.4 k/uL (0-1.0); Monocytes % (A) 4 %; Neutrophils # (A) 7.1 k/uL (1.3-7.7); Neutrophils % (A) 69 %; Platelet Count 260 k/uL (150-450); RBC 4.99 m/uL (3.80-5.40); RDW 12.6 % (11.5-15.5); WBC 10.2 k/uL (3.8-10.6)
[2018-01-16 01:32] LABS: ALT 28 U/L (9-52); AST 30 U/L (14-36); Albumin 4.9 g/dL (3.5-5.0); Alcohol <10 mg/dL; Alkaline Phosphatase 51 U/L (38-126); Anion Gap 12 mmol/L; Blood Urea Nitrogen 13 mg/dL (7-17); Calcium 10.4 mg/dL (8.4-10.2); Carbon Dioxide 21 mmol/L (22-30); Chloride 107 mmol/L (98-107); Glucose 120 mg/dL (74-99); Potassium 4.4 mmol/L (3.5-5.1); Sodium 140 mmol/L (137-145); Total Bilirubin 0.7 mg/dL (0.2-1.3); Total Protein 7.7 g/dL (6.3-8.2)
[2018-01-16 01:37] LABS: Valproic Acid (Depakene) <10.0 ug/mL
[2018-01-16] MEDS ORDERED: HALOPERIDOL LACTATE 5 MG/ML 1 ML VIAL IM STA (03:17)
[2018-01-16] MEDS ORDERED: MAG HYDROX/AL HYDROX/SIMETH 30 ML CUP PO PRN (05:57)
[2018-01-16] MEDS ORDERED: ACETAMINOPHEN TAB 325 MG TAB PO PRN (05:57)
[2018-01-16] MEDS ORDERED: MAGNESIUM HYDROXIDE 2,400 MG/10 ML CUP PO PRN (05:57)
[2018-01-16] MEDS: NICOTINE 14MG/24HR PATCH TRANSDERM SCH (09:06)
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
[2018-01-17] MEDS: LORazepam 1 MG TAB PO PRN (00:57)
[2018-01-17] MEDS: NICOTINE 14MG/24HR PATCH TRANSDERM SCH (08:57)
--- NOTE | 2018-01-17 10:56 | P.PN ---
Progress Note - Text Interval history: The patient is found in her room she follows me to an interview room. She appears agitated. She makes several brief statements that are unrelated. She conveys a continued paranoid thought content. She indicates she feels trapped here and doesn't need to be here. She asks several questions that are bizarre. Staff report that she did not sleep well last night. Mental status exam: The patient is a thin female appearing her stated age. She is dressed in hospital gowns. She seated in the chair but it's frequently changes position. She will have a staring eye contact at times. She has an agitated affect. She continues to look about the room during our conversation. She conveys a paranoid thought content. She indicates some persecutory thoughts. She will makes several statements that are unrelated demonstrating a disorganized thought process. Insight and judgment are poor. She is not able to appreciate the reason for this admission and she states "I don't need her medicine". She demonstrated no physical aggressiveness. Plan: The patient remains acutely psychotic. We will offer Abilify 15 mg. She is likely to refuse the medication. We are awaiting the deferral conference. We will monitor her for safety including vitals and by mouth intake. Reality orientation will be provided when possible.
[2018-01-17] MEDS: ARIPiprazole 15 MG TAB PO SCH ×2 (20:59→21:20)
[2018-01-17] MEDS: ZIPRASIDONE 20 MG VIAL IM PRN (21:22)
[2018-01-18] MEDS: NICOTINE 14MG/24HR PATCH TRANSDERM SCH (08:03)
--- NOTE | 2018-01-18 11:01 | P.PN ---
Progress Note - Text Interval history: The patient is found in the [facility] watching TV. She faces the TV and makes no eye contact with me. Again she makes bizarre brief statements. She appears irritable. Staff report that she has been irritable this morning and through a couple of water. She required an injectable medication last evening due to agitation. Mental status exam: The patient is a thin female appearing her stated age. She seated in the chair looking forward at the TV making no eye contact. She provides no relevant answers to questions asked. She appears irritable she appears to be in no physical distress. She demonstrates no repetitive involuntary movements. She indicates she does not wish to speak any further and the interaction was concluded. Plan: The patient remains acutely psychotic and demonstrates an irritable affect. She is refusing medication. We are awaiting the deferral conference. She requires continued psychiatric hospitalization as she would be expected to decompensate if discharged.
[2018-01-18] MEDS: ZIPRASIDONE 20 MG VIAL IM PRN (11:55)
[2018-01-18] MEDS: LORazepam 1 MG TAB PO PRN ×2 (12:12→20:13)
[2018-01-18 18:19] LABS: Appearance,Urine Cloudy (Clear); Bacteria,Urine Rare /hpf; Bilirubin,Urine 1+ (Negative); Blood,Urine Small (Negative); Color,Urine Yellow; Glucose,Urine (UA) Negative (Negative); Hyaline Casts,Urine 46 /lpf (0-2); Ketones,Urine 3+ (Negative); Leukocyte Esterase,Urine Trace (Negative); Mucus,Urine Moderate /hpf; Nitrite,Urine Negative (Negative); Protein,Urine 2+ (Negative); RBC,Urine 9 /hpf (0-5); Squamous Epithelial Cell,Urine 16 /hpf (0-4); WBC,Urine 10 /hpf (0-5)
[2018-01-18 18:22] LABS: Amphetamine Screen,Urine Not Detected (NotDetected); Barbiturate Screen,Urine Not Detected (NotDetected); Benzodiazepines Screen,Urine Detected (NotDetected); Cocaine Screen,Urine Not Detected (NotDetected); Methadone Screen, Urine Not Detected (NotDetected); Opiate Screen,Urine Not Detected (NotDetected); Oxycodone Screen, Urine Not Detected (NotDetected); Phencyclidine Screen,Urine Not Detected (NotDetected); Tricyclic Antidepressant,Urine Not Detected (NotDetected); Urn Cannabinoid Scrn Detected (NotDetected)
[2018-01-18] MEDS: ARIPiprazole 15 MG TAB PO SCH (20:12)
[2018-01-19] MEDS: NICOTINE 14MG/24HR PATCH TRANSDERM SCH (07:52)
--- NOTE | 2018-01-19 14:35 | P.PN ---
Progress Note - Text Progress Note Date: 01/19/18 Interval history: The patient is found in hallway. Found her very anxious and emotional. Reports worsening mood swings. Still reports hearing voices which are making her very scared and anxious. Mental status exam: The patient is a thin female appearing her stated age. Has fair eye contact. Speech slow in soft tone. Mood anxious and dysphoric with congruent affect. Denies suicidal ideation. No homicidal ideation. Still paranoid delusional and has auditory hallucinations. Plan: Will continue to adjust medications accordingly
[2018-01-19] MEDS: ARIPiprazole 15 MG TAB PO SCH (20:12)
[2018-01-19] MEDS: LORazepam 1 MG TAB PO PRN (21:46)
[2018-01-20] MEDS: NICOTINE 14MG/24HR PATCH TRANSDERM SCH (08:05)
[2018-01-20] MEDS: LORazepam 1 MG TAB PO PRN (08:06)
[2018-01-20 16:16] LABS: Amorphous Sediment,Urine Rare /hpf; Appearance,Urine Turbid (Clear); Bilirubin,Urine Negative (Negative); Blood,Urine Negative (Negative); Budding Yeast,Urine Occasional /hpf; Color,Urine Yellow; Glucose,Urine (UA) Negative (Negative); Ketones,Urine Negative (Negative); Leukocyte Esterase,Urine Moderate (Negative); Mucus,Urine Many /hpf; Nitrite,Urine Negative (Negative); Protein,Urine Trace (Negative); RBC,Urine 10 /hpf (0-5); Specific Gravity,Urine 1.016 (1.001-1.035); Squamous Epithelial Cell,Urine 22 /hpf (0-4); Urobilinogen,Urine <2.0 mg/dL (<2.0); WBC,Urine 4 /hpf (0-5)
--- NOTE | 2018-01-20 18:16 | P.PN ---
Progress Note - Text Progress Note Date: 01/20/18 Interval history: The patient is found in hallway. Found her much calmer and relax. Reports having no energy and lack of motivation. Reports worsening mood swings. Still reports hearing voices which are making her very scared and anxious. Mental status exam: The patient is a thin female appearing her stated age. Has fair eye contact. Speech slow in soft tone. Mood anxious and dysphoric with congruent affect. Denies suicidal ideation. No homicidal ideation. Still paranoid delusional and has auditory hallucinations. Plan: Will continue to adjust medications accordingly
[2018-01-20] MEDS: ARIPiprazole 15 MG TAB PO SCH (20:20)
[2018-01-20] MEDS ORDERED: ZIPRASIDONE 20 MG VIAL IM ONE (22:06)
[2018-01-20] MEDS ORDERED: WATER FOR INJECTION, STERILE 10 ML IV ONE (22:06)
[2018-01-20] MEDS: ZIPRASIDONE 20 MG VIAL IM PRN (22:08)
[2018-01-21] MEDS: NICOTINE 14MG/24HR PATCH TRANSDERM SCH (09:04)
[2018-01-21] MEDS: VENLAFAXINE HCL ER 37.5 MG CAP PO SCH (09:57)
--- NOTE | 2018-01-21 11:26 | P.PN ---
Progress Note - Text Progress Note Date: 01/21/18 Interval history: The patient is found in hallway. Found her much calmer and relax. Reports having no energy and lack of motivation. Reports worsening mood swings. Still reports hearing voices which are making her very scared and anxious. Mental status exam: The patient is a thin female appearing her stated age. Has fair eye contact. Speech slow in soft tone. Mood anxious and dysphoric with congruent affect. Denies suicidal ideation. No homicidal ideation. Still paranoid delusional and has auditory hallucinations. Plan: Will continue to adjust medications accordingly
[2018-01-21] MEDS: ARIPiprazole 15 MG TAB PO SCH ×2 (21:39→22:17)
[2018-01-22] MEDS ORDERED: ZIPRASIDONE 20 MG VIAL IM ONE (00:25)
[2018-01-22] MEDS ORDERED: WATER FOR INJECTION, STERILE 10 ML IV ONE (00:25)
[2018-01-22] MEDS: ZIPRASIDONE 20 MG VIAL IM PRN ×2 (00:26→21:13)
[2018-01-22] MEDS: NICOTINE 14MG/24HR PATCH TRANSDERM SCH (09:25)
[2018-01-22] MEDS: VENLAFAXINE HCL ER 37.5 MG CAP PO SCH ×2 (09:25→16:46)
--- NOTE | 2018-01-22 18:34 | P.PN ---
Progress Note - Text Progress Note Date: 01/22/18 Interval history: The patient is found in hallway. Found her much calmer and relax. Reports having some energy and increase in focus. Now wants to go to [facility]. Mental status exam: The patient is a thin female appearing her stated age. Has fair eye contact. Speech slow in soft tone. Mood anxious and dysphoric with congruent affect. Denies suicidal ideation. No homicidal ideation. Still paranoid delusional and has auditory hallucinations. Plan: Will continue to adjust medications accordingly
[2018-01-22] MEDS: ARIPiprazole 15 MG TAB PO SCH (19:43)
[2018-01-23] MEDS: NICOTINE 14MG/24HR PATCH TRANSDERM SCH (07:49)
[2018-01-23] MEDS: VENLAFAXINE HCL ER 37.5 MG CAP PO SCH (07:50)
[2018-01-23] MEDS: LORazepam 1 MG TAB PO PRN ×2 (07:57→22:57)
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
[2018-01-24] MEDS: NICOTINE 14MG/24HR PATCH TRANSDERM SCH (08:30)
[2018-01-24] MEDS: VENLAFAXINE HCL ER 37.5 MG CAP PO SCH (08:30)
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
[2018-01-24] MEDS ORDERED: ARIPiprazole IM 400 MG VIAL (NO COST) IM ONE (10:00)
[2018-01-25 05:21] VITALS: BP 121/72; PULSE 80; RESP 14; TEMP 97.6
[2018-01-25] MEDS: VENLAFAXINE HCL ER 37.5 MG CAP PO SCH (08:13)
[2018-01-25] MEDS: LORazepam 1 MG TAB PO PRN (08:15)
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
== END 2018-01-25 11:35 | disposition designated cancer center or children's hospital (05) | DRG 885 ==
LOC: EC 00:11 → 3MHU 05:13
PROVIDERS: ADMIT Psychiatry & Neurology Psychiatry; ATTEND Psychiatry & Neurology Psychiatry
DX: F23 Brief psychotic disorder (principal); Z78.1 Physical restraint status; F12.20 Cannabis dependence, uncomplicated; F15.10 Other stimulant abuse, uncomplicated; F14.10 Cocaine abuse, uncomplicated; F17.200 Nicotine dependence, unspecified, uncomplicated; Z71.6 Tobacco abuse counseling; Z79.899 Other long term (current) drug therapy; Z91.040 Latex allergy status; Z98.86 Personal history of breast implant removal; Z98.891 History of uterine scar from previous surgery; Z82.49 Family history of ischemic heart disease and other diseases of the circulatory system; Z81.8 Family history of other mental and behavioral disorders; E83.52 Hypercalcemia; I10 Essential (primary) hypertension; F41.0 Panic disorder [episodic paroxysmal anxiety]
CPT/HCPCS: 36415; 80053; 80164; 80306; 80320; 81001; 81025; 82075; 85025; 96372; 99285

== ENCOUNTER 2018-02-11 10:23 | Emergency (ER) | payer BC, OTHER ==
[2018-02-11 10:31] VITALS: TEMP 97.5
[2018-02-11] MEDS ORDERED: SODIUM CHLORIDE 0.9% 1,000 ML IV STA (10:31)
[2018-02-11] MEDS ORDERED: SODIUM CHLORIDE 0.9% 500 ML 500 ML IV STA (10:31)
--- NOTE | 2018-02-11 10:39 | ED ---
Fall HPI - General Chief Complaint: Fall Stated Complaint: Syncope Time Seen by Provider: 02/11/18 10:23 Source: patient, EMS Mode of arrival: EMS - History of Present Illness Initial Comments: This a 22-year-old female with a prior history of syncope who was shopping today when she stopped at a coffee shop. She states she felt somewhat lightheaded while standing. She apparently briefly passed out she fell backwards and struck her head on a tile floor. She believes she may have been "convulsing" prior to this. She had no palpitations fevers chills nausea vomiting sweats he complains some pain to the back of her head and right side of her neck initially she had no pain but as she was being transported this came to light. She was placed in a cervical collar by paramedics. Right now she is awake alert oriented. She denies any pain other than the 7-8/10 pain to her head on the right side. Per reports she did have a contusion no evidence of laceration no focal deficits reported. She had a blood glucose of 131 per paramedics. 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 Last menstrual period was February 04 of this year MD Complaint: fall, other -: minutes(s) - Related Data Home Medications Medication Instructions Recorded Confirmed Gabapentin [Neurontin] 300 mg PO TID 02/11/18 02/11/18 cloNIDine HCL [Catapres] 0.1 mg PO BID PRN 02/11/18 02/11/18 Previous Rx's Medication Instructions Recorded ARIPiprazole IM [Abilify Maintena] 400 mg IM QMONTH #1 vial 01/25/18 Ibuprofen [Motrin] 600 mg PO Q6HR PRN #20 tab 02/11/18 Allergies Allergy/AdvReac Type Severity Reaction Status Date / Time latex Allergy Unknown Verified 02/11/18 10:46 Review of Systems ROS Statement: Those systems with pertinent positive or pertinent negative responses have been documented in the HPI. ROS Other: All systems not noted in ROS Statement are negative. 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, "breast implant illness" History of Any Multi-Drug Resistant Organisms: None Reported Past Surgical History: Breast Surgery, Section, Tonsillectomy Additional Past Surgical History / Comment(s): breast implants removed Past Anesthesia/Blood Transfusion Reactions: No Reported Reaction Past Psychological History: Anxiety, Panic Disorder Smoking Status: Current every day smoker - Past Family History Father Family Medical History: Hypertension Mother Additional Family Medical History / Comment(s): bipolar General Exam - General Exam Comments Initial Comments: This is a well-developed well-nourished awake alert oriented 3 female she has a [place] Coma Scale of 15 Limitations: no limitations General appearance: alert, in no apparent distress Head exam: Present: normocephalic, other (A contusion noted to the right occipital scalp tenderness palpation of step-off or crepitation no open wounds) Eye exam: Present: normal appearance, PERRL, EOMI. Absent: scleral icterus, conjunctival injection, periorbital swelling ENT exam: Present: normal exam, mucous membranes moist Neck exam: Present: normal inspection, tenderness, other (Cervical collar in place is tenderness palpation of the right or spinous and trapezius musculature. No definite spinous process tenderness. Additionally no stridor JVD or bruits). Absent: lymphadenopathy Respiratory exam: Present: normal lung sounds bilaterally. Absent: respiratory distress, wheezes, rales, rhonchi, stridor Cardiovascular Exam: Present: regular rate, normal rhythm, normal heart sounds. Absent: systolic murmur, diastolic murmur, rubs, gallop, clicks GI/Abdominal exam: Present: soft, normal bowel sounds. Absent: distended, tenderness, guarding, rebound, rigid Extremities exam: Present: normal inspection, full ROM, normal capillary refill , other (No tenderness to the pelvis on pelvic rock or palpation). Absent: tenderness, pedal edema, joint swelling, calf tenderness Back exam: Present: normal inspection, full ROM. Absent: tenderness, CVA tenderness (R), CVA tenderness (L), muscle spasm, paraspinal tenderness Neurological exam: Present: alert, oriented X3, CN II-XII intact Psychiatric exam: Present: normal affect, normal mood Skin exam: Present: warm, dry, intact, normal color. Absent: rash Course Vital Signs 02/11/18 02/11/18 10:24 11:54 Temperature 97.5 F L Pulse Rate 81 75 Respiratory 16 18 Rate Blood Pressure 113/67 90/51 O2 Sat by Pulse 100 100 Oximetry - Reevaluation(s) Reevaluation #1: 02/11/18 12:53 Reevaluation after return from CAT scan reveals no findings she is awake alert oriented [place] Coma Scale of 15 CT was negative for acute findings Medical Decision Making - Medical Decision Making The patient remains awake alert oriented 3 lab work was reviewed as were the imaging. Patient will be discharged with follow-up with her doctor reevaluation. - Lab Data Result diagrams: 02/11/18 10:35 02/11/18 10:35 Lab Results 02/11/18 02/11/18 02/11/18 Range/Units 10:35 10:35 10:35 WBC 6.9 (3.8-10.6) k/uL RBC 4.44 (3.80-5.40) m/uL Hgb 12.7 (11.4-16.0) gm/dL Hct 38.6 (34.0-46.0) % MCV 87.1 (80.0-100.0) fL MCH 28.6 (25.0-35.0) pg MCHC 32.9 (31.0-37.0) g/dL RDW 13.7 (11.5-15.5) % Plt Count 245 (150-450) k/uL Neutrophils % 68 % Lymphocytes % 24 % Monocytes % 4 % Eosinophils % 2 % Basophils % 1 % Neutrophils # 4.7 (1.3-7.7) k/uL Lymphocytes # 1.7 (1.0-4.8) k/uL Monocytes # 0.3 (0-1.0) k/uL Eosinophils # 0.2 (0-0.7) k/uL Basophils # 0.1 (0-0.2) k/uL PT (9.0-12.0) sec INR (<1.2) APTT (22.0-30.0) sec Sodium 141 (137-145) mmol/L Potassium 4.0 (3.5-5.1) mmol/L Chloride 109 H (98-107) mmol/L Carbon Dioxide 27 (22-30) mmol/L Anion Gap 5 mmol/L BUN 10 (7-17) mg/dL Creatinine 0.69 (0.52-1.04) mg/dL Est GFR (CKD-EPI)AfAm >90 (>60 ml/min/1.73 sqM) Est GFR (CKD-EPI)NonAf >90 (>60 ml/min/1.73 sqM) Glucose 93 (74-99) mg/dL Calcium 9.1 (8.4-10.2) mg/dL Magnesium 1.7 (1.6-2.3) mg/dL Total Bilirubin 0.1 L (0.2-1.3) mg/dL AST 17 (14-36) U/L ALT 32 (9-52) U/L Alkaline Phosphatase 34 L (38-126) U/L Total Creatine Kinase 47 (30-135) U/L CK-MB (CK-2) <0.2 (0.0-2.4) ng/mL CK-MB (CK-2) Rel Index Troponin I <0.012 (0.000-0.034) ng/mL Total Protein 6.2 L (6.3-8.2) g/dL Albumin 3.7 (3.5-5.0) g/dL Urine Color Urine Appearance (Clear) Urine pH (5.0-8.0) Ur Specific [place] (1.001-1.035) Urine Protein (Negative) Urine Glucose (UA) (Negative) Urine Ketones (Negative) Urine Blood (Negative) Urine Nitrite (Negative) Urine Bilirubin (Negative) Urine Urobilinogen (<2.0) mg/dL Ur Leukocyte Esterase (Negative) Urine RBC (0-5) /hpf Urine WBC (0-5) /hpf Ur Squamous Epith Cells (0-4) /hpf Urine Mucus (None) /hpf Urine HCG, Qual (Not Detectd) Urine Opiates Screen (NotDetected) Ur Oxycodone Screen (NotDetected) Urine Methadone Screen (NotDetected) Ur Propoxyphene Screen (NotDetected) Ur Barbiturates Screen (NotDetected) U Tricyclic Antidepress (NotDetected) Ur Phencyclidine Scrn (NotDetected) Ur Amphetamines Screen (NotDetected) U Methamphetamines Scrn (NotDetected) U Benzodiazepines Scrn (NotDetected) Urine Cocaine Screen (NotDetected) U Marijuana (THC) Screen (NotDetected) 02/11/18 02/11/18 02/11/18 Range/Units 10:35 12:15 12:15 WBC (3.8-10.6) k/uL RBC (3.80-5.40) m/uL Hgb (11.4-16.0) gm/dL Hct (34.0-46.0) % MCV (80.0-100.0) fL MCH (25.0-35.0) pg MCHC (31.0-37.0) g/dL RDW (11.5-15.5) % Plt Count (150-450) k/uL Neutrophils % % Lymphocytes % % Monocytes % % Eosinophils % % Basophils % % Neutrophils # (1.3-7.7) k/uL Lymphocytes # (1.0-4.8) k/uL Monocytes # (0-1.0) k/uL Eosinophils # (0-0.7) k/uL Basophils # (0-0.2) k/uL PT 10.4 (9.0-12.0) sec INR 1.0 (<1.2) APTT 24.1 (22.0-30.0) sec Sodium (137-145) mmol/L Potassium (3.5-5.1) mmol/L Chloride (98-107) mmol/L Carbon Dioxide (22-30) mmol/L Anion Gap mmol/L BUN (7-17) mg/dL Creatinine (0.52-1.04) mg/dL Est GFR (CKD-EPI)AfAm (>60 ml/min/1.73 sqM) Est GFR (CKD-EPI)NonAf (>60 ml/min/1.73 sqM) Glucose (74-99) mg/dL Calcium (8.4-10.2) mg/dL Magnesium (1.6-2.3) mg/dL Total Bilirubin (0.2-1.3) mg/dL AST (14-36) U/L ALT (9-52) U/L Alkaline Phosphatase (38-126) U/L Total Creatine Kinase (30-135) U/L CK-MB (CK-2) (0.0-2.4) ng/mL CK-MB (CK-2) Rel Index Troponin I (0.000-0.034) ng/mL Total Protein (6.3-8.2) g/dL Albumin (3.5-5.0) g/dL Urine Color Yellow Urine Appearance Clear (Clear) Urine pH 6.0 (5.0-8.0) Ur Specific [place] 1.012 (1.001-1.035) Urine Protein Negative (Negative) Urine Glucose (UA) Negative (Negative) Urine Ketones Negative (Negative) Urine Blood Negative (Negative) Urine Nitrite Negative (Negative) Urine Bilirubin Negative (Negative) Urine Urobilinogen <2.0 (<2.0) mg/dL Ur Leukocyte Esterase Small H (Negative) Urine RBC 1 (0-5) /hpf Urine WBC 3 (0-5) /hpf Ur Squamous Epith Cells 6 H (0-4) /hpf Urine Mucus Few H (None) /hpf Urine HCG, Qual Not Detected (Not Detectd) Urine Opiates Screen Not Detected (NotDetected) Ur Oxycodone Screen Not Detected (NotDetected) Urine Methadone Screen Not Detected (NotDetected) Ur Propoxyphene Screen Not Detected (NotDetected) Ur Barbiturates Screen Not Detected (NotDetected) U Tricyclic Antidepress Not Detected (NotDetected) Ur Phencyclidine Scrn Not Detected (NotDetected) Ur Amphetamines Screen Not Detected (NotDetected) U Methamphetamines Scrn Not Detected (NotDetected) U Benzodiazepines Scrn Not Detected (NotDetected) Urine Cocaine Screen Not Detected (NotDetected) U Marijuana (THC) Screen Detected H (NotDetected) - EKG Data -: EKG Interpreted by Nd EKG shows normal: sinus rhythm, axis, intervals, QRS complexes, ST-T waves ( Normal sinus rhythm a 76. Interval 124 QRS 86 QT since QTC 384/[address]- T wave changes some artifact noted) Rate: normal - Radiology Data Radiology results: report reviewed, image reviewed Disposition Clinical Impression: Vasovagal syncope, Scalp contusion Disposition: HOME SELF-CARE Condition: Good Instructions: Syncope (ED), Scalp Contusion in Adults (ED) Additional Instructions: Ice 24-48 hours and warm compresses afterward. This is when necessary Prescriptions: Ibuprofen [Motrin] 600 mg PO Q6HR PRN #20 tab PRN Reason: Pain Is patient prescribed a controlled substance at d/c from ED?: No Referrals: [facility] [Primary Care Provider] - 1-2 days
[2018-02-11 10:59] LABS: Basophils # (A) 0.1 k/uL (0-0.2); Basophils % (A) 1 %; Eosinophils # (A) 0.2 k/uL (0-0.7); Eosinophils % (A) 2 %; HCT 38.6 % (34.0-46.0); HGB 12.7 gm/dL (11.4-16.0); Lymphocytes # (A) 1.7 k/uL (1.0-4.8); Lymphocytes % (A) 24 %; MCH 28.6 pg (25.0-35.0); MCHC 32.9 g/dL (31.0-37.0); MCV 87.1 fL (80.0-100.0); Mean Platelet Volume 6.9; Monocytes # (A) 0.3 k/uL (0-1.0); Monocytes % (A) 4 %; Neutrophils # (A) 4.7 k/uL (1.3-7.7); Neutrophils % (A) 68 %; Platelet Count 245 k/uL (150-450); RBC 4.44 m/uL (3.80-5.40); RDW 13.7 % (11.5-15.5); WBC 6.9 k/uL (3.8-10.6)
[2018-02-11 11:05] LABS: ALT 32 U/L (9-52); AST 17 U/L (14-36); Albumin 3.7 g/dL (3.5-5.0); Alkaline Phosphatase 34 U/L (38-126); Anion Gap 5 mmol/L; Blood Urea Nitrogen 10 mg/dL (7-17); Calcium 9.1 mg/dL (8.4-10.2); Carbon Dioxide 27 mmol/L (22-30); Chloride 109 mmol/L (98-107); Glucose 93 mg/dL (74-99); Magnesium 1.7 mg/dL (1.6-2.3); Partial Thromboplastin Time 24.1 sec (22.0-30.0); Prothrombin Time 10.4 sec (9.0-12.0); Sodium 141 mmol/L (137-145); Total Bilirubin 0.1 mg/dL (0.2-1.3); Total Protein 6.2 g/dL (6.3-8.2)
[2018-02-11 11:19] LABS: Creatine Kinase 47 U/L (30-135)
[2018-02-11 11:32] LABS: Creatine Kinase MB <0.2 ng/mL (0.0-2.4); Troponin I <0.012 ng/mL (0.000-0.034)
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
[2018-02-11 11:56] VITALS: BP 90/51; PULSE 75; RESP 18
--- NOTE | 2018-02-11 12:16 | XR ---
EXAMINATION TYPE: XR chest 2V DATE OF EXAM: 02/11/2018 HISTORY: syncope. REFERENCE: NONE. FINDINGS: The lungs are clear. Pleural spaces are clear. Heart size is normal. IMPRESSION: NORMAL CHEST.
[2018-02-11 12:40] LABS: Appearance,Urine Clear (Clear); Bilirubin,Urine Negative (Negative); Blood,Urine Negative (Negative); Color,Urine Yellow; Glucose,Urine (UA) Negative (Negative); Ketones,Urine Negative (Negative); Leukocyte Esterase,Urine Small (Negative); Mucus,Urine Few /hpf; Nitrite,Urine Negative (Negative); Protein,Urine Negative (Negative); RBC,Urine 1 /hpf (0-5); Specific Gravity,Urine 1.012 (1.001-1.035); Squamous Epithelial Cell,Urine 6 /hpf (0-4); Urobilinogen,Urine <2.0 mg/dL (<2.0); WBC,Urine 3 /hpf (0-5)
[2018-02-11 12:48] LABS: Amphetamine Screen,Urine Not Detected (NotDetected); Barbiturate Screen,Urine Not Detected (NotDetected); Benzodiazepines Screen,Urine Not Detected (NotDetected); Cocaine Screen,Urine Not Detected (NotDetected); Methadone Screen, Urine Not Detected (NotDetected); Opiate Screen,Urine Not Detected (NotDetected); Oxycodone Screen, Urine Not Detected (NotDetected); Phencyclidine Screen,Urine Not Detected (NotDetected); Tricyclic Antidepressant,Urine Not Detected (NotDetected); Urn Cannabinoid Scrn Detected (NotDetected)
== END 2018-02-11 13:03 | disposition home or self-care (01) ==
LOC: EC 10:23
DX: S00.03XA Contusion of scalp, initial encounter (principal); R55 Syncope and collapse; F15.90 Other stimulant use, unspecified, uncomplicated; F14.90 Cocaine use, unspecified, uncomplicated; F41.9 Anxiety disorder, unspecified; F17.200 Nicotine dependence, unspecified, uncomplicated; Z91.040 Latex allergy status; Z79.899 Other long term (current) drug therapy; Z87.39 Personal history of other diseases of the musculoskeletal system and connective tissue; W01.0XXA Fall on same level from slipping, tripping and stumbling without subsequent striking against object, initial encounter; Y93.89 Activity, other specified; Y92.513 Shop (commercial) as the place of occurrence of the external cause
CPT/HCPCS: 36415; 70450; 71046; 72125; 80053; 80306; 81001; 81025; 82550; 82553; 83735; 84484; 85025; 85610; 85730; 93005; 96360; 96361; 99285

== ENCOUNTER 2018-07-31 09:09 | Observation (INO) | payer OTHER, BC ==
[2018-07-31] MEDS ORDERED: SODIUM CHLORIDE 0.9% 1,000 ML IV STA (09:15)
[2018-07-31 09:36] LABS: Basophils % (A) 0 %; Eosinophils # (A) 0.2 k/uL (0-0.7); Eosinophils % (A) 2 %; HCT 41.5 % (34.0-46.0); HGB 13.7 gm/dL (11.4-16.0); Lymphocytes # (A) 1.7 k/uL (1.0-4.8); Lymphocytes % (A) 15 %; MCH 28.3 pg (25.0-35.0); MCV 85.8 fL (80.0-100.0); Mean Platelet Volume 7.4; Monocytes # (A) 0.4 k/uL (0-1.0); Monocytes % (A) 4 %; Neutrophils # (A) 8.6 k/uL (1.3-7.7); Neutrophils % (A) 78 %; Platelet Count 258 k/uL (150-450); RBC 4.83 m/uL (3.80-5.40); RDW 13.3 % (11.5-15.5); WBC 11.1 k/uL (3.8-10.6)
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
[2018-07-31 09:52] LABS: ALT 14 U/L (9-52); AST 21 U/L (14-36); African American GFR (CKD) >90 (>60 ml/min/1.73 sqM); Albumin 4.5 g/dL (3.5-5.0); Alcohol <10 mg/dL; Alkaline Phosphatase 55 U/L (38-126); Amylase 48 U/L (30-110); Anion Gap 5 mmol/L; Blood Urea Nitrogen 10 mg/dL (7-17); Calcium 9.6 mg/dL (8.4-10.2); Carbon Dioxide 27 mmol/L (22-30); Chloride 107 mmol/L (98-107); Glucose 98 mg/dL (74-99); Lipase 20 U/L (23-300); Partial Thromboplastin Time 26.6 sec (22.0-30.0); Potassium 4.1 mmol/L (3.5-5.1); Prothrombin Time 10.5 sec (9.0-12.0); Sodium 139 mmol/L (137-145); Total Bilirubin 0.6 mg/dL (0.2-1.3); Total Protein 7.2 g/dL (6.3-8.2)
[2018-07-31 10:00] LABS: Creatine Kinase 62 U/L (30-135)
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
[2018-07-31 10:12] LABS: Creatine Kinase MB <0.2 ng/mL (0.0-2.4); Troponin I <0.012 ng/mL (0.000-0.034)
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
[2018-07-31] MEDS ORDERED: NALOXONE 0.4 MG/ML 1 ML VIAL IV PRN (11:25)
[2018-07-31] MEDS: SODIUM CHLORIDE 0.9% 1,000 ML IV SCH (11:48)
[2018-07-31] MEDS ORDERED: METHOCARBAMOL 750 MG TAB PO PRN (13:27)
[2018-07-31] MEDS ORDERED: ACETAMINOPHEN TAB 325 MG TAB PO PRN (13:27)
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
[2018-07-31] MEDS: HYDROmorphone 1 MG/ML 1 ML SYRINGE IVP PRN ×2 (14:19→20:18)
[2018-07-31] MEDS ORDERED: NICOTINE 21MG/24HR PATCH TRANSDERM STA (15:21)
[2018-07-31 18:06] LABS: Amorphous Sediment,Urine Rare /hpf; Appearance,Urine Clear (Clear); Bilirubin,Urine Negative (Negative); Blood,Urine Negative (Negative); Color,Urine Yellow; Glucose,Urine (UA) Negative (Negative); Ketones,Urine Negative (Negative); Leukocyte Esterase,Urine Small (Negative); Mucus,Urine Occasional /hpf; Nitrite,Urine Negative (Negative); Protein,Urine Negative (Negative); RBC,Urine 1 /hpf (0-5); Specific Gravity,Urine 1.038 (1.001-1.035); Squamous Epithelial Cell,Urine 12 /hpf (0-4); Urobilinogen,Urine <2.0 mg/dL (<2.0); WBC,Urine 28 /hpf (0-5)
[2018-07-31 18:15] LABS: Amphetamine Screen,Urine Not Detected (NotDetected); Barbiturate Screen,Urine Not Detected (NotDetected); Benzodiazepines Screen,Urine Not Detected (NotDetected); Cocaine Screen,Urine Not Detected (NotDetected); Methadone Screen, Urine Not Detected (NotDetected); Opiate Screen,Urine Detected (NotDetected); Oxycodone Screen, Urine Not Detected (NotDetected); Phencyclidine Screen,Urine Not Detected (NotDetected); Tricyclic Antidepressant,Urine Not Detected (NotDetected); Urn Cannabinoid Scrn Detected (NotDetected)
[2018-07-31] MEDS: LITHIUM CARBONATE 300 MG CAP PO SCH (20:17)
[2018-08-01] MEDS: HYDROcodone/APAP 5-325MG 1 EACH TAB PO PRN ×2 (03:40→09:15)
[2018-08-01] MEDS: SODIUM CHLORIDE 0.9% 1,000 ML IV SCH ×2 (05:02→11:45)
[2018-08-01 06:44] LABS: Basophils # (A) 0.1 k/uL (0-0.2); Basophils % (A) 1 %; Eosinophils # (A) 0.2 k/uL (0-0.7); Eosinophils % (A) 2 %; HCT 40.1 % (34.0-46.0); Lymphocytes # (A) 1.7 k/uL (1.0-4.8); Lymphocytes % (A) 19 %; MCH 27.8 pg (25.0-35.0); MCHC 32.4 g/dL (31.0-37.0); MCV 85.7 fL (80.0-100.0); Mean Platelet Volume 7.5; Monocytes # (A) 0.5 k/uL (0-1.0); Monocytes % (A) 5 %; Neutrophils # (A) 6.4 k/uL (1.3-7.7); Neutrophils % (A) 72 %; Platelet Count 245 k/uL (150-450); RBC 4.67 m/uL (3.80-5.40); RDW 13.3 % (11.5-15.5); WBC 8.9 k/uL (3.8-10.6)
[2018-08-01 07:05] LABS: ALT 15 U/L (9-52); AST 17 U/L (14-36); African American GFR (CKD) >90 (>60 ml/min/1.73 sqM); Albumin 4.2 g/dL (3.5-5.0); Alkaline Phosphatase 55 U/L (38-126); Anion Gap 8 mmol/L; Blood Urea Nitrogen 10 mg/dL (7-17); Calcium 9.5 mg/dL (8.4-10.2); Carbon Dioxide 26 mmol/L (22-30); Chloride 107 mmol/L (98-107); Glucose 98 mg/dL (74-99); Potassium 3.9 mmol/L (3.5-5.1); Sodium 141 mmol/L (137-145); Total Bilirubin 0.7 mg/dL (0.2-1.3); Total Protein 6.8 g/dL (6.3-8.2)
[2018-08-01] MEDS: LITHIUM CARBONATE 300 MG CAP PO SCH (09:18)
[2018-08-01 09:24] VITALS: RESP 17
[2018-08-01] MEDS ORDERED: DOCUSATE 100 MG CAP PO SCH (09:30)
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
[2018-08-01 11:50] VITALS: BP 105/66; PULSE 65; TEMP 97.5
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
== END 2018-08-01 13:14 | disposition home or self-care (01) ==
LOC: EC 09:09 → 3SCARD 11:25
PROVIDERS: ADMIT Surgery; ATTEND Surgery
DX: S22.31XA Fracture of one rib, right side, initial encounter for closed fracture (principal); S27.329A Contusion of lung, unspecified, initial encounter; S00.83XA Contusion of other part of head, initial encounter; M54.2 Cervicalgia; R10.9 Unspecified abdominal pain; F31.9 Bipolar disorder, unspecified; F41.0 Panic disorder [episodic paroxysmal anxiety]; F41.9 Anxiety disorder, unspecified; R91.8 Other nonspecific abnormal finding of lung field; F17.200 Nicotine dependence, unspecified, uncomplicated; Z79.899 Other long term (current) drug therapy; Z91.040 Latex allergy status; Z98.86 Personal history of breast implant removal; V43.52XA Car driver injured in collision with other type car in traffic accident, initial encounter; W22.11XA Striking against or struck by driver side automobile airbag, initial encounter; Y92.410 Unspecified street and highway as the place of occurrence of the external cause; Z81.8 Family history of other mental and behavioral disorders; Z82.49 Family history of ischemic heart disease and other diseases of the circulatory system
CPT/HCPCS: 96376; 96361 ×3; 96374; 99291; 36415; 93005; 86900; 86901; 80053 ×2; 82150; 82550; 82553; 83605; 83690; 84484; 85025 ×2; 85610; 85730; 86850; 81001; 81025; 80306; 80320; 72170; 71045; 72125; 70450; 71260; 74177; G0378 ×2; S4990; J1170; Q9967

== ENCOUNTER → 2019-03-08 | Outpatient (CLI) | payer BC, OTHER ==
[2019-03-08 17:11] LABS: T4, Free (Free Thyroxine) 1.8 ng/dL (0.80-1.80)
[2019-03-08 17:15] LABS: African American GFR (CKD) 120.4 (60.0-200.0); Albumin/Globulin Ratio 2.5 (1.60-3.17); Anion Gap 12.1 mmol/L (4.00-12.00); BUN/Creat Ratio 18.75 Ratio (12.00-20.00); Calcium 9.7 mg/dL (8.7-10.3); Carbon Dioxide 21.9 mmol/L (21.6-31.8); Chol/HDL Ratio 3.93; LDL Cholesterol,Calculated 149.4 mg/dL (0.0-131.0); Non-African American GFR(CKD) 103.9 (60.0-200.0); Potassium 3.7 mmol/L (3.5-5.5); Total Bilirubin 0.6 mg/dL (0.2-1.2); VLDL Calculation 17.6 mg/dL (5.00-40.00)
== END | disposition home or self-care (01) ==
LOC: LABWHC1 08:32
PROVIDERS: ATTEND Psychiatry & Neurology Psychiatry
DX: Z51.81 Encounter for therapeutic drug level monitoring (principal); Z79.899 Other long term (current) drug therapy
CPT/HCPCS: 36415; 80053; 80061; 84439; 84443

== ENCOUNTER → 2020-03-26 | Outpatient (CLI) | payer BC, OTHER ==
--- NOTE | 2020-03-26 16:01 | US ---
EXAMINATION TYPE: US OB >= 14 wk fetus DATE OF EXAM: 03/26/2020 COMPARISON: None CLINICAL HISTORY: Z36 Encounter for screening of mother; TECHNIQUE: Transabdominal (TA) GESTATIONAL AGE / DATING Physician Established: (21 weeks/5 days) EDC: 08/01/2020 Dates by LMP: LMP unknown Dates by First Scan: No previous US here Dates by Current Scan: (21 weeks/3 days) EDC: 08/03/2020 Beta HCG (if available): NA SURVEY IUP: Single PLACENTA: Anterior ; venous lakes seen inferior placenta with largest = 2.5 x 2.1 x 0.9cm PREVIA: No Previa HALLIE: 12.6 cm normal CERVICAL LENGTH (transabdominal: norm > 3.0cm): 3.6 cm BIOMETRY PRESENTATION: Breech LIE: Longitudinal BPD: 4.8 cm 20 weeks / 4 days HC: 19.0 cm 21 weeks / 2 days AC: 17.2 cm 21 weeks / 2 days FL: 3.6 cm 21 weeks / 3 days ESTIMATED WEIGHT IN GRAMS: 445.0 grams ESTIMATED WEIGHT IN LBS/OZ: 1 lb. 0 oz. WEIGHT PERCENTAGE BASED ON ESTABLISHED DATES: 44% HC/AC: 1.10 Normal FL/AC: 21% wnl HEART RATE: 144 bpm RHYTHM: Normal Diaphragm seen Additional required images were documented: Four chamber heart seen: wnl Stomach: wnl Renal: bilateral kidneys seen on Transverse View Bladder: wnl Single, live IUP, 21 weeks/3 days, EDC: 08/03/2020, [id number]. IMPRESSION: 1. Single intrauterine gestation estimated at 21 weeks 3 days gestation based on current ultrasound m easurements. This would have a calculated EDC of 08/03/2020. Correlate this with physician established EDC of 08/01/2020. Cardiac activity measures 144 bpm. 2. Venous placental lakes. 3. Additional anatomy was documented.
== END | disposition home or self-care (01) ==
LOC: RADUSWWP 14:17
PROVIDERS: ATTEND Obstetrics & Gynecology
DX: Z36.0 Encounter for antenatal screening for chromosomal anomalies (principal); Z3A.21 21 weeks gestation of pregnancy
CPT/HCPCS: 76805

== ENCOUNTER → 2020-04-23 | Outpatient (CLI) | payer BC, OTHER ==
--- NOTE | 2020-04-24 15:04 | US ---
EXAMINATION TYPE: US OB anatomy transabd DATE OF EXAM: 04/23/2020 COMPARISON: 03/26/2020 HISTORY: 24-year-old female Z36.0 encounter for screening, anatomy TECHNIQUE: Transabdominal (TA) FINDINGS: EXAM MEASUREMENTS: GESTATIONAL AGE / DATING Physician Established: (25 weeks/3 days) EDC: 08/03/2020 Dates by LMP: (25 weeks/3 days) EDC: 08/03/2020 Dates by First Scan: (21 weeks/3 days) EDC: 08/01/2020 Dates by Current Scan for: (26 weeks/3 days) EDC: 07/27/2020 SURVEY IUP: Single PLACENTA: Anterior PREVIA: No previa HALLIE: 13 cm Normal CERVICAL LENGTH (transabdominal: norm > 3.0cm): 3.2 cm BIOMETRY PRESENTATION: Breech LIE: Longitudinal BPD: 6.4 cm 26 weeks / 0 days HC: 23.8 cm 25 weeks / 6 days AC: 21.3 cm 25 weeks / 6 days FL: 5.2 cm 27 weeks / 6 days ESTIMATED WEIGHT IN GRAMS: 945 grams ESTIMATED WEIGHT IN LBS/OZ: 2 lbs. 1 oz. WEIGHT PERCENTAGE BASED ON ESTABLISHED DATE: 84 % HC/AC: 1.12 cm Normal FL/AC: 24% Normal Heart rate 160 bpm RHYTHM: Normal ANATOMY SEEN (within normal limits): Lateral Vent (< 1 cm) .6 cm Cisterna Magna (< 1.1 cm) .6 cm Cerebellum (varies with age) 2.5 cm Choroid Plexus (bilateral) Midline Falx Four Chamber Heart Stomach Situs Diaphragm Kidneys (bilateral) Bladder ANATOMY NOT SEEN or suboptimally visualized: Cavus Septi Pellucidi (not imaged) Longitudinal Spine (skin line abuts soft tissue, not delineated) Transverse Spine Nose / Lips (lower lip initially not imaged. A later image, page 70 of 76 does not clearly delineate the lower lip). Cord Insert (the insertion into the abdominal wall is not imaged) Three Vessel Cord (only 1 vessel seen lateral to the bladder) Outflow tracts: LVOT/RVOT Arms (bilateral) (long bones not entirely delineated especially forearm) Legs (bilateral) (long bones not entirely delineated, especially tibia/fibula) Patient returned today for additional images anatomy not seen on previous was obtained on todays exam . Nose/lips were not seen in entirety. IMPRESSION: Examination continues to be limited. Follow-up study in several weeks is advised.
== END | disposition home or self-care (01) ==
LOC: RADUSWWP 06:55
PROVIDERS: ATTEND Obstetrics & Gynecology
DX: Z36.0 Encounter for antenatal screening for chromosomal anomalies (principal)
CPT/HCPCS: 76811

== ENCOUNTER → 2020-04-24 | Outpatient (CLI) | payer BC, OTHER | END | disposition home or self-care (01) | LOC: RADUSWWP 09:54 | PROVIDERS: ATTEND Obstetrics & Gynecology | DX: Z53.9 Procedure and treatment not carried out, unspecified reason (principal) ==

== ENCOUNTER 2020-09-29 10:38 | Day surgery (SDC) | payer BC, MEDICARE, OTHER ==
[2020-09-24 15:14] VITALS: BMI 25.7
[~2020-09-29 10:38] MED LIST: LACTATED RINGERS 1,000 ML IV SCH
[2020-09-29 11:15] VITALS: RESP 16; TEMP 99.1
[2020-09-29] MEDS ORDERED: LACTATED RINGERS 1,000 ML IV ONE (11:23)
[2020-09-29] MEDS ORDERED: LIDOCAINE 1% (10MG/ML) FOR IV START INTRADERMA ONE (11:24)
[2020-09-29] MEDS ORDERED: PROPOFOL 10 MG/ML 20 ML VIAL IV ONE (11:41)
[2020-09-29 12:49] VITALS: BP 94/74; PULSE 94
--- NOTE | 2020-09-29 13:37 | P.GSHP ---
History of Present Illness H&P Date: 09/29/20 Chief Complaint: GI bleed This a 25-year-old female who has had issues with rectal bleeding. Patient presents today for colonoscopy. 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 hemorrhoids, mole on anus. group b strep + during x2 History of Any Multi-Drug Resistant Organisms: None Reported Past Surgical History: Breast Surgery, Section, Tonsillectomy Additional Past Surgical History / Comment(s): breast implants removed Past Anesthesia/Blood Transfusion Reactions: No Reported Reaction Smoking Status: Current every day smoker - Past Family History Father Family Medical History: Hypertension Additional Family Medical History / Comment(s): paternal grandpa-colon cancer Mother Family Medical History: Cancer Additional Family Medical History / Comment(s): bipolar. breast cancer Medications and Allergies Home Medications Medication Instructions Recorded Confirmed Type ARIPiprazole IM SYRINGE [Abilify 400 mg IM QMONTHLY 09/24/20 09/29/20 History Maintena Syringe] Albuterol Inhaler [Ventolin Hfa 1 puff INHALATION DAILY PRN 09/24/20 09/29/20 History Inhaler] Pnv No.95/Ferrous Fum/Folic AC 1 each PO DAILY 09/24/20 09/24/20 History [ Multivitamin Tablet] cloNIDine HCL [Catapres] 0.2 mg PO BID 09/24/20 09/29/20 History Allergies Allergy/AdvReac Type Severity Reaction Status Date / Time latex Allergy Rash/Hives Verified 09/24/20 15:02 Surgical - Exam Vital Signs Temp Pulse Resp BP Pulse Ox 99.1 F 77 16 111/59 97 09/29/20 11:14 09/29/20 11:14 09/29/20 11:14 09/29/20 11:14 09/29/20 11:14 - General well developed, well nourished, no distress - Eyes PERRL - ENT normal pinna - Neck no masses - Respiratory normal expansion - Cardiovascular Rhythm: regular - Abdomen Abdomen: soft, non tender Assessment and Plan Assessment: GI bleed. We'll perform colonoscopy.
--- NOTE | 2020-09-29 13:45 | P.OP ---
Date of Procedure: 09/29/20 Preoperative Diagnosis: GI bleed Postoperative Diagnosis: Internal hemorrhoids Procedure(s) Performed: Colonoscopy Anesthesia: MAC Surgeon: Sourav Pineda Pathology: none sent Condition: stable Disposition: PACU Description of Procedure: The patient's placed on the endoscopy table lateral position. She received IV sedation. Digital rectal exam was performed which revealed internal hemorrhoids. Possible colonoscope was then placed patient anus and passed throughout the colon. Patient a very poor colonic prep. There is large amount liquid stool colon. The right colon was visualized. The scope was withdrawn. The remainder of the right colon transverse colon descending colon and sigmoid colon appeared normal. Scope was brought back the rectum this appeared normal. The scope was unretroflexed internal hemorrhoids are noted. There is minimal bleeding seen from hemorrhoids. It was presumed that her rectal bleeding is due to internal hemorrhoids. Scope was withdrawn from patient.
== END 2020-09-29 13:21 | disposition home or self-care (01) ==
LOC: ORWHC2ENDO 10:38
PROVIDERS: ATTEND Surgery
DX: K64.8 Other hemorrhoids (principal); J45.909 Unspecified asthma, uncomplicated; I10 Essential (primary) hypertension; F17.200 Nicotine dependence, unspecified, uncomplicated; Z80.3 Family history of malignant neoplasm of breast; Z82.49 Family history of ischemic heart disease and other diseases of the circulatory system; Z91.040 Latex allergy status
CPT/HCPCS: 45378; 81025; J2704

== ENCOUNTER 2021-03-31 07:39 | Day surgery (SDC) | payer MEDICARE, OTHER ==
[2021-03-26 09:11] VITALS: BMI 23.9
[~2021-03-31 07:39] MED LIST changes: +ACETAMINOPHEN TAB 500 MG TAB PO PRN; +DEXAMETHASONE SOD PHOSPHATE 4 MG/ML 1 ML VIAL IV ONE; +HEPARIN SODIUM,PORCINE/PF 5,000 UNIT/0.5 ML SYRINGE SQ PRN; +LIDOCAINE 1% (10MG/ML) FOR IV START INTRADERMA PRN; +ONDANSETRON 4 MG/2 ML VIAL IVP ONE; +Pre Op ABX Message 1 EACH MISC MISCELLANE ONE; +SCOPOLAMINE 1.5MG/72HR PATCH TRANSDERM ONE
--- NOTE | 2021-03-31 11:01 | P.GSHP ---
History of Present Illness H&P Date: 03/31/21 Chief Complaint: Hemorrhoids Is a 25-year-old female who presents today for hemorrhoidectomy. She is had had problems with pain itching and bleeding from her hemorrhoids Past Medical History Past Medical History: Asthma, Hypertension Additional Past Medical History / Comment(s): Bulging disc in pelvic floor, hemorrhoids, mole on anus. History of Any Multi-Drug Resistant Organisms: None Reported Past Surgical History: Breast Surgery, Section, Tonsillectomy Additional Past Surgical History / Comment(s): Breast implants placed and then removed. Past Anesthesia/Blood Transfusion Reactions: No Reported Reaction Past Psychological History: ADD/ADHD, Anxiety, Panic Disorder, PTSD Additional Psychological History / Comment(s): ADHD, Manic depression. No problems now, has been in therapy for 3 yrs. Smoking Status: Former smoker, Vaper Past Alcohol Use History: None Reported Additional Past Alcohol Use History / Comment(s): Quit smoking "awhile ago", now vapes occasionally. Started smoking in 1999 and smoked 1 pp week. Past Drug Use History: Marijuana Additional Drug Use History / Comment(s): Medical marijuana use occasionally. 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 - Past Family History Father Family Medical History: Hypertension Additional Family Medical History / Comment(s): Paternal grandpa-colon cancer. Mother Family Medical History: Cancer Additional Family Medical History / Comment(s): Bipolar, breast cancer. Medications and Allergies Home Medications Medication Instructions Recorded Confirmed Type ARIPiprazole IM SYRINGE [Abilify 475 mg IM QMONTHLY 09/24/20 03/31/21 History Maintena Syringe] Albuterol Inhaler [Ventolin Hfa 1 puff INHALATION DAILY PRN 09/24/20 03/31/21 History Inhaler] Allergies Allergy/AdvReac Type Severity Reaction Status Date / Time latex Allergy Rash/Hives Verified 03/31/21 08:04 Surgical - Exam Vital Signs Temp Pulse Resp BP Pulse Ox 97.9 F 79 16 114/71 98 03/31/21 07:55 03/31/21 07:55 03/31/21 07:55 03/31/21 07:55 03/31/21 07:55 - General well developed, well nourished, no distress - Eyes PERRL - ENT normal pinna - Neck no masses - Respiratory normal expansion - Cardiovascular Rhythm: regular - Abdomen Abdomen: soft, non tender - Rectum Internal and external hemorrhoids Assessment and Plan Assessment: Internal and external hemorrhoids. We'll perform hemorrhoidectomy.
[2021-03-31] MEDS ORDERED: BUPIVACAIN-EPI 0.25%-1:200,000 30 ML VIAL SQ ONE ×2 (11:28→11:55)
[2021-03-31] MEDS ORDERED: MIDAZOLAM 2 MG/2 ML VIAL ONE (11:34)
[2021-03-31] MEDS ORDERED: PROPOFOL 10 MG/ML 20 ML VIAL IV ONE (11:34)
[2021-03-31] MEDS ORDERED: LIDOCAINE 1% INJ 10MG/ML (20 ML MDV) ONE (11:34)
[2021-03-31] MEDS ORDERED: fentaNYL (PF) 50 MCG/ML 2 ML AMP ONE (11:34)
--- NOTE | 2021-03-31 12:11 | P.OP ---
Date of Procedure: 03/31/21 Preoperative Diagnosis: Internal and Hemorrhoids Postoperative Diagnosis: Internal and external hemorrhoids Procedure(s) Performed: Hemorrhoidectomy Anesthesia: RAFAEL Surgeon: Sourav Pineda Estimated Blood Loss (ml): 3 Pathology: other (Internal and external hemorrhoids) Condition: stable Disposition: PACU Description of Procedure: The patient's placed on the operative table in the prone position after receiving general endotracheal tube anesthesia. Her anus was prepped with sterile fashion. The patient had large internal and external hemorrhoids. The right lateral hemorrhoidal column was enlarged. The anal retractors placed anus. Using Clamps the hemorrhoid columns grasper then using Harmonic scissors the rectus performed. Next the left posterior area and another large hemorrhoid column. These are grasped the CLIPS and removed with the Harmonic scissors. There is no bleeding seen. The anus packed with Gelfoam. Patient top she will was sent to recovery room in stable condition.
[2021-03-31 12:14] VITALS: TEMP 98
[2021-03-31] MEDS ORDERED: HYDROmorphone 1 MG/ML 1 ML SYRINGE ONE (12:57)
[2021-03-31] MEDS: HYDROmorphone 0.5 MG/0.5 ML SYRINGE IVP PRN ×2 (12:57→13:02)
[2021-03-31 13:17] VITALS: BP 106/65; RESP 15
[2021-03-31 13:32] VITALS: PULSE 66
== END 2021-03-31 14:24 | disposition home or self-care (01) ==
LOC: OR 07:39
PROVIDERS: ATTEND Surgery
DX: K64.4 Residual hemorrhoidal skin tags (principal); K64.8 Other hemorrhoids; J45.909 Unspecified asthma, uncomplicated; I10 Essential (primary) hypertension; D12.9 Benign neoplasm of anus and anal canal; Z98.891 History of uterine scar from previous surgery; Z98.890 Other specified postprocedural states; F90.9 Attention-deficit hyperactivity disorder, unspecified type; F41.9 Anxiety disorder, unspecified; F41.0 Panic disorder [episodic paroxysmal anxiety]; F43.10 Post-traumatic stress disorder, unspecified; F33.9 Major depressive disorder, recurrent, unspecified; Z87.891 Personal history of nicotine dependence; F17.290 Nicotine dependence, other tobacco product, uncomplicated; Z82.49 Family history of ischemic heart disease and other diseases of the circulatory system; Z80.0 Family history of malignant neoplasm of digestive organs; Z80.3 Family history of malignant neoplasm of breast; Z81.8 Family history of other mental and behavioral disorders; Z79.899 Other long term (current) drug therapy; Z91.040 Latex allergy status
CPT/HCPCS: 81025; 88304; 46260; J2250; J1100; J2405; J2001; J3010; J2704; J1170; J1644

== ENCOUNTER 2022-09-23 16:11 | Emergency (ER) | payer MEDICARE, OTHER ==
[2022-09-23 16:26] VITALS: TEMP 99.2
[2022-09-23] MEDS ORDERED: ACETAMINOPHEN TAB 500 MG TAB PO STA (17:34)
[2022-09-23] MEDS ORDERED: LIDOCAINE 5% PATCH TOPICAL STA (17:34)
--- NOTE | 2022-09-23 18:33 | CT ---
EXAMINATION TYPE: CT brain cspine wo con DATE OF EXAM: 09/23/2022 COMPARISON: None HISTORY: fall, neck pain CT DLP: 1303 mGycm. Automated Exposure Control for Dose Reduction was Utilized. TECHNIQUE: CT scan of the head and cervical spine are performed without contrast. FINDINGS: There is no acute intracranial hemorrhage, mass effect, or midline shift identified. The v entricles and sulci are within normal limits in size. The globes are intact and the visualized sinus es are clear. Cervical spine is visualized in its entirety from C1 through upper thoracic levels and demonstrates s atisfactory alignment without evidence of acute fracture or dislocation. Prevertebral soft tissue ap pears within normal limits. The C1-C2 articulation is unremarkable. IMPRESSION: 1. There is no acute fracture or dislocation evident in the cervical spine. 2. No acute intracranial hemorrhage, mass effect, or midline shift is seen.
--- NOTE | 2022-09-23 19:47 | ED ---
Fall HPI - General Source: patient Mode of arrival: EMS <Bing Carlos - Last Filed: 09/23/22 19:38> <Carolina Donohue P - Last Filed: 09/23/22 21:06> - General Chief Complaint: Fall Stated Complaint: fall - neck pain Time Seen by Provider: 09/23/22 17:18 - History of Present Illness Initial Comments: Patient is a 27-year-old female presents to the emergency department after fall. Patient slipped on 4 stairs this afternoon. She does not know if she hit her head or loss consciousness. Patient is extremely anxious. Reports headache states her brain is "going to explode." She is not on blood thinners. She has pain in the back or neck. She put a c-collar on herself in triage. She also reports lower back pain. Denies numbness and tingling in the legs, groin, buttock region. Denies loss of bowel bladder function. (Bing Carlos) - Related Data Home Medications Medication Instructions Recorded Confirmed ARIPiprazole IM SYRINGE [Abilify 475 mg IM QMONTHLY 09/24/20 03/31/21 Maintena Syringe] Albuterol Inhaler [Ventolin Hfa 1 puff INHALATION DAILY PRN 09/24/20 03/31/21 Inhaler] Previous Rx's Medication Instructions Recorded Acetaminophen Tab [Tylenol] 650 mg PO Q6H #30 tab 03/31/21 Docusate [Colace] 100 mg PO BID #20 capsule 03/31/21 Ibuprofen [Motrin] 600 mg PO Q6HR PRN #40 tab 03/31/21 oxyCODONE HCL [OxyIR] 5 mg PO Q6H PRN 3 Days #10 tab 03/31/21 Allergies Allergy/AdvReac Type Severity Reaction Status Date / Time No Known Allergies Allergy Verified 09/23/22 16:27 Review of Systems ROS Other: All systems not noted in ROS Statement are negative. <Bing Carlos - Last Filed: 09/23/22 19:38> ROS Other: All systems not noted in ROS Statement are negative. <Carolina Donohue P - Last Filed: 09/23/22 21:06> ROS Statement: Those systems with pertinent positive or pertinent negative responses have been documented in the HPI. 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 hemorrhoids, mole on anus. group b strep + during x2 History of Any Multi-Drug Resistant Organisms: None Reported Past Surgical History: Breast Surgery, Section, Tonsillectomy Additional Past Surgical History / Comment(s): breast implants removed Past Anesthesia/Blood Transfusion Reactions: No Reported Reaction Past Psychological History: Anxiety, Bipolar, PTSD Smoking Status: Current every day smoker, Vaper Past Alcohol Use History: None Reported Past Drug Use History: Marijuana - Past Family History Father Family Medical History: Hypertension Additional Family Medical History / Comment(s): Paternal grandpa-colon cancer. Mother Family Medical History: Cancer Additional Family Medical History / Comment(s): Bipolar, breast cancer. <Bing Carlos - Last Filed: 09/23/22 19:38> General Exam Limitations: physical limitation General appearance: anxious Head exam: Present: atraumatic, normocephalic, normal inspection Eye exam: Present: normal appearance, PERRL, EOMI. Absent: scleral icterus, conjunctival injection, periorbital swelling Neck exam: Present: normal inspection, full ROM. Absent: tenderness, meningismus, lymphadenopathy, thyromegaly Respiratory exam: Present: normal lung sounds bilaterally. Absent: respiratory distress, wheezes, rales, rhonchi, stridor Cardiovascular Exam: Present: regular rate, normal rhythm, normal heart sounds. Absent: systolic murmur, diastolic murmur, rubs, gallop, clicks Back exam: Present: normal inspection, full ROM, vertebral tenderness (lumbar coccyx). Absent: paraspinal tenderness Neurological exam: Present: alert Expanded Sensory exam: Upper Extremity Light Touch: Normal, Lower Extremity Light Touch: Normal Motor strength exam: RUE: 5, LUE: 5, RLE: 5, LLE: 5 Psychiatric exam: Present: anxious Skin exam: Present: warm, dry, intact, normal color. Absent: rash <Bing Carlos - Last Filed: 09/23/22 19:38> Course Vital Signs 09/23/22 16:20 Temperature 99.2 F Pulse Rate 85 Respiratory 18 Rate Blood Pressure 134/90 O2 Sat by Pulse 100 Oximetry Medical Decision Making <Bing Carlos - Last Filed: 09/23/22 19:38> - Medical Decision Making Was pt. sent in by a medical professional or institution (, [facility], [employer]ANCIAL INSTITUTION TREASURER, urgent care, hospital, or [facility]...) When possible be specific @ -No Did you speak to anyone other than the patient for history (EMS, parent, family, police, friend...)? What history was obtained from this source @ -No Did you review nursing and triage notes (agree or disagree)? Why? @ -I reviewed and agree with nursing and triage notes Were old charts reviewed (outside hosp., previous admission, EMS record, old EKG, old radiological studies, urgent care reports/EKG's, [facility] records)? Report findings @ -No old charts were reviewed Differential Diagnosis (chest pain, altered mental status, abdominal pain women, abdominal pain men, vaginal bleeding, weakness, fever, dyspnea, syncope, headache, dizziness, GI bleed, back pain, seizure, CVA, palpatations, mental health)? @ -Differential Headache: Migraine, tension, cluster, carbon monoxide, central venous thrombosis, pension karma temporal arteritis, acute closure glaucoma, intercranial hemorrhage, mastoiditis, sinusitis, head injury, this is not meant to be an all-inclusive list. EKG interpreted by me (3pts min.). @ -As above X-rays interpreted by me (1pt min.). @ -None done CT interpreted by me (1pt min.). @ -[No acute intracranial process or C-spine fracture U/S interpreted by me (1pt. min.). @ -None done What testing was considered but not performed or refused? (CT, X-rays, U/S, labs)? Why? @ -None What meds were considered but not given or refused? Why? @ -None Did you discuss the management of the patient with other professionals (professionals i.e. , [facility], [employer]CIAL INSTITUTION T[employer]AS[employer]ER, lab, RT, psych nurse, social media community manager, talent acquisition administrator, teacher, senior grants officer, family preservation caseworker)? Give summary @ -No Was smoking cessation discussed for >3mins.? @ -No Was critical care preformed (if so, how long)? @ -No Were there social determinants of health that impacted care today? How? (Homelessness, low income, unemployed, alcoholism, drug addiction, transportation, low edu. Level, literacy, decrease access to med. care, [facility], rehab)? @ -No Was there de-escalation of care discussed even if they declined (Discuss DNR or withdrawal of care, Hospice)? DNR status @ -No What co-morbidities impacted this encounter? (DM, HTN, Smoking, COPD, CAD, Cancer, CVA, ARF, Chemo, Hep., AIDS, mental health diagnosis, sleep apnea, morbid obesity)? @ -None Was patient admitted / discharged? Hospital course, mention meds given and route, prescriptions, significant lab abnormalities, going to OR and other pertinent info. @ -Patient presenting with headache, neck pain, low back pain after fall. No neurological deficit on exam. No signs or symptoms of cauda equina. Due to severity of pain CT of the brain and C-spine was obtained interpreted by myself showing no acute intracranial process no evidence of cervical spine fracture. Patient care given to Dr. Donohue at 19:45 Undiagnosed new problem with uncertain prognosis? @ -No Drug Therapy requiring intensive monitoring for toxicity (Heparin, Nitro, Insulin, Cardizem)? @ -No Were any procedures done? @ -No Diagnosis/symptom? @ -Fall, headache, neck pain, mechanical back pain Acute, or Chronic, or Acute on Chronic? @ -acute Uncomplicated (without systemic symptoms) or Complicated (systemic symptoms)? @ -uncomplicated Side effects of treatment? @ -No Exacerbation, Progression, or Severe Exacerbation? @ -No Poses a threat to life or bodily function? How? (Chest pain, [place], [place], pneumonia, PE, COPD, DKA, ARF, appy, cholecystitis, CVA, Diverticulitis, Homicidal, Suicidal, threat to staff... and all critical care pts) @ -No Dr. Donohue is my attending (Bing Carlos) Disposition Is patient prescribed a controlled substance at d/c from ED?: No <Bing Carlos - Last Filed: 09/23/22 19:38> Is patient prescribed a controlled substance at d/c from ED?: No <Carolina Donohue - Last Filed: 09/23/22 21:06> Clinical Impression: Fall, Headache, Neck pain, Mechanical back pain Disposition: HOME SELF-CARE Condition: Good Instructions (If sedation given, give patient instructions): Acute Low Back Pain (ED) Additional Instructions: Please follow-up with your primary care provider in 1-2 days. Return to the emergency department if you experience new, concerning, or worsening symptoms. Referrals: None,Stated [Primary Care Provider] - 1-2 days
--- NOTE | 2022-09-23 20:03 | XR ---
PROCEDURE: XR sacrum coccyx - 3V DATE AND TIME: 09/23/2022 7:03 PM CLINICAL INDICATION: Pain; injury TECHNIQUE: Department protocol COMPARISON: 07/31/2018 FINDINGS: There is no fracture or malalignment. The soft tissues are unremarkable. IMPRESSION: No acute radiographic process.
--- NOTE | 2022-09-23 20:05 | XR ---
PROCEDURE: XR lumbar spine - 3V DATE AND TIME: 09/23/2022 7:04 PM CLINICAL INDICATION: Pain; fall TECHNIQUE: Department protocol. 3 views. COMPARISON: None FINDINGS: There is no fracture or malalignment. Lumbar spine straightening is noted. The soft tissues are unremarkable. IMPRESSION: Lumbar spine straightening.
[2022-09-23 21:18] VITALS: BP 97/66; PULSE 84; RESP 20
== END 2022-09-23 21:17 | disposition home or self-care (01) ==
LOC: EC 16:11
DX: M54.2 Cervicalgia (principal); R51.9 Headache, unspecified; M54.9 Dorsalgia, unspecified; J45.909 Unspecified asthma, uncomplicated; I10 Essential (primary) hypertension; F41.9 Anxiety disorder, unspecified; F31.9 Bipolar disorder, unspecified; F17.290 Nicotine dependence, other tobacco product, uncomplicated; F12.90 Cannabis use, unspecified, uncomplicated; Z79.899 Other long term (current) drug therapy; W10.8XXA Fall (on) (from) other stairs and steps, initial encounter
CPT/HCPCS: 70450; 72100; 72125; 72220; 99285

== ENCOUNTER 2022-10-06 14:00 | Emergency (ER) | payer MEDICARE, OTHER ==
[2022-10-06 14:33] VITALS: BP 146/84; PULSE 118; RESP 24; TEMP 99.9
[2022-10-06] MEDS ORDERED: SODIUM CHLORIDE 0.9% 1,000 ML IV STA (14:46)
--- NOTE | 2022-10-06 15:04 | ED ---
Abdominal Pain HPI - General Source: patient, RN notes reviewed Mode of arrival: ambulatory Limitations: no limitations <Jamel Diaz - Last Filed: 10/07/22 06:44> <Charlie Mccall - Last Filed: 10/08/22 15:10> - General Chief Complaint: Abdominal Pain Stated Complaint: fever, constipation Time Seen by Provider: 10/06/22 14:35 - History of Present Illness Initial Comments: 27-year-old female presents emergency Department chief complaint of abdominal pain. Patient states she is extremely constipated. Patient states she's been suffering with ongoing abdominal issues she has seen Dr. Pineda and has been diagnosed with IBS, recent visit showing gastritis. Patient states she is extremely constipated states that she's taken several medications including fiber enemas and laxatives with no relief. Patient noted to have fever at home. Patient denies any localized pain denies any chance . (Jamel Diaz) - Related Data Home Medications Medication Instructions Recorded Confirmed Aripiprazole Lauroxil [Aristada] 441 mg IM Q28D 10/06/22 10/06/22 Methylphenidate HCl [Concerta] 54 mg PO DAILY 10/06/22 10/06/22 Omeprazole [PriLOSEC] 40 mg PO DAILY 10/06/22 10/06/22 Pregabalin 150 mg PO BID 10/06/22 10/06/22 busPIRone HCL 15 mg PO TID 10/06/22 10/06/22 Previous Rx's Medication Instructions Recorded Dicyclomine [Bentyl] 20 mg PO QID #30 tablet 10/06/22 polyethylene glycoL 3350 [Miralax] 17 gm PO DAILY #14 packet 10/06/22 Allergies Allergy/AdvReac Type Severity Reaction Status Date / Time No Known Allergies Allergy Verified 10/06/22 16:53 Review of Systems ROS Other: All systems not noted in ROS Statement are negative. <Jamel Diaz - Last Filed: 10/07/22 06:44> ROS Other: All systems not noted in ROS Statement are negative. <Charlie Mccall - Last Filed: 10/08/22 15:10> ROS Statement: Those systems with pertinent positive or pertinent negative responses have been documented in the HPI. 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 hemorrhoids, mole on anus. group b strep + during x2 History of Any Multi-Drug Resistant Organisms: None Reported Past Surgical History: Breast Surgery, Section, Tonsillectomy Additional Past Surgical History / Comment(s): breast implants removed Past Anesthesia/Blood Transfusion Reactions: No Reported Reaction Past Psychological History: Anxiety, Bipolar, PTSD Smoking Status: Current every day smoker, Vaper Past Alcohol Use History: None Reported Past Drug Use History: Marijuana - Past Family History Father Family Medical History: Hypertension Additional Family Medical History / Comment(s): Paternal grandpa-colon cancer. Mother Family Medical History: Cancer Additional Family Medical History / Comment(s): Bipolar, breast cancer. <Jamel Diaz - Last Filed: 10/07/22 06:44> General Exam Limitations: no limitations General appearance: alert, in no apparent distress Head exam: Present: atraumatic, normocephalic, normal inspection ENT exam: Present: normal exam, normal oropharynx, mucous membranes moist Neck exam: Present: normal inspection. Absent: tenderness, meningismus, l ymphadenopathy Respiratory exam: Present: normal lung sounds bilaterally. Absent: respiratory distress, wheezes, rales, rhonchi, stridor Cardiovascular Exam: Present: normal rhythm, tachycardia, normal heart sounds. Absent: systolic murmur, diastolic murmur, rubs, gallop, clicks GI/Abdominal exam: Present: soft, tenderness, normal bowel sounds. Absent: distended, guarding, rebound, rigid Back exam: Absent: CVA tenderness (R), CVA tenderness (L) Neurological exam: Present: alert Skin exam: Present: warm, dry, intact, normal color. Absent: rash <Jamel Diaz - Last Filed: 10/07/22 06:44> Course <Charlie Mccall - Last Filed: 10/08/22 15:10> Vital Signs 10/06/22 14:30 Temperature 99.9 F H Pulse Rate 118 H Respiratory 24 Rate Blood Pressure 146/84 O2 Sat by Pulse 100 Oximetry - Reevaluation(s) Reevaluation #1: Medical records reviewed (Charlie Mccall) Reevaluation #2: patients symptoms relatively unchanged patient did elope from urgent department prior to medications given (Charlie Mccall) Reevaluation #3: Patient was informed of results and questions were answered (Charlie Mccall) Reevaluation #4: 10/08/22 15:08 Was pt. sent in by a medical professional or institution (RYAN Whiting, ELECTRIC DETECTOR OPERATOR, urgent care, hospital, or intermediate...) When possible be specific @ -no Did you speak to anyone other than the patient for history (EMS, parent, family, police, friend...)? What history was obtained from this source @ -no Did you review nursing and triage notes (agree or disagree)? Why? @ -agree Are old charts reviewed (outside hosp., previous admission, EMS record, old EKG, old radiological studies, urgent care reports/EKG's, intermediate records)? Report findings @ -yes Differential Diagnosis (chest pain, altered mental status, abdominal pain women, abdominal pain men, vaginal bleeding, weakness, fever, dyspnea, syncope, headache, dizziness, GI bleed, back pain, seizure, CVA, palpatations, mental health, musculoskeletal)? @ -prior EKG interpreted by me (3pts min.). @ -no X-rays interpreted by me (1pt min.). @ -no CT interpreted by me (1pt min.). @ -yes U/S interpreted by me (1pt. min.). @ -no What testing was considered but not performed or refused? (CT, X-rays, U/S, labs)? Why? @ -none What meds were considered but not given or refused? Why? @ -none Did you discuss the management of the patient with other professionals (professionals i.e. RYAN Whiting, ELECTRIC DETECTOR OPERATOR, lab, RT, psych nurse, psychotherapist social worker, enologist, teacher, special weapons and tactics officer, case management assistant)? Give summary @ -no Was smoking cessation discussed for >3mins.? @ -no Was critical care preformed (if so, how long)? @ -no Were there social determinants of health that impacted care today? How? (Homelessness, low income, unemployed, alcoholism, drug addiction, transportation, low edu. Level, literacy, decrease access to med. care, custodial, rehab)? @ -none Was there de-escalation of care discussed even if they declined (Discuss DNR or withdrawal of care, Hospice)? DNR status @ -no What co-morbidities impacted this encounter? (DM, HTN, Smoking, COPD, CAD, Cancer, CVA, ARF, Chemo, Hep., AIDS, mental health diagnosis, sleep apnea, morbid obesity)? @ -none Was patient admitted / discharged? Hospital course, mention meds given and route, prescriptions, significant lab abnormalities, going to OR and other pertinent info. @ - 27 female with nonspecific abdominal pain. Patient does have constellation of symptoms including some enteritis with history, constipation and unchanged abdominal pain. Patient feels improved and can be discharged home Discharge Undiagnosed new problem with uncertain prognosis? @ -no Drug Therapy requiring intensive monitoring for toxicity (Heparin, Nitro, Insulin, Cardizem)? @ -no Were any procedures done? @ -no Diagnosis/symptom? @ -Enteritis, abdominal pain, constipation Acute, or Chronic, or Acute on Chronic? @ -Acute Uncomplicated (without systemic symptoms) or Complicated (systemic symptoms)? @ -Complicated Side effects of treatment? @ -no Exacerbation, Progression, or Severe Exacerbation? @ -exacerbation Poses a threat to life or bodily function? How? (Chest pain, [place], [place], pneumonia, PE, COPD, DKA, ARF, appy, cholecystitis, CVA, Diverticulitis, Homicidal, Suicidal, threat to staff... and all critical care pts) @ -no (Charlie Mccall) Reevaluation #5: Differential Abdominal Pain Women: Appendicitis, Cholecystitis, diverticulosis, ischemic bowel, pancreatitis, hepatitis, UTI, gastroenteritis, AAA, incarcerated hernia, bowel obstruction, constipation, inflammatory bowel, hepatitis, peptic ulcer disease, splenic infarction, perforated viscus, vulvitis, ovarian torsion, PID, kidney stone, placenta abruption, this is not meant to be an all-inclusive list (Charlie Mccall) Medical Decision Making - Lab Data Result diagrams: 10/06/22 15:04 10/06/22 15:04 <Jamel Diaz - Last Filed: 10/07/22 06:44> - Lab Data Result diagrams: 10/06/22 15:04 10/06/22 15:04 - Radiology Data Radiology results: report reviewed (CT abdomen and pelvis positive for enteritis and significant stool), image reviewed <Charlie Mccall - Last Filed: 10/08/22 15:10> - Medical Decision Making Was pt. sent in by a medical professional or institution (RYAN Whiting, ELECTRIC DETECTOR OPERATOR, urgent care, hospital, or intermediate...) When possible be specific @ -No Did you speak to anyone other than the patient for history (EMS, parent, family, police, friend...)? What history was obtained from this source @ -No Did you review nursing and triage notes (agree or disagree)? Why? @ -I reviewed and agree with nursing and triage notes Were old charts reviewed (outside hosp., previous admission, EMS record, old EKG, old radiological studies, urgent care reports/EKG's, intermediate records)? Report findings @ -No old charts were reviewed Differential Diagnosis (chest pain, altered mental status, abdominal pain women, abdominal pain men, vaginal bleeding, weakness, fever, dyspnea, syncope, headache, dizziness, GI bleed, back pain, seizure, CVA, palpatations, mental he alth, musculoskeletal)? @ -nDifferential Abdominal Pain Women: Appendicitis, Cholecystitis, diverticulosis, ischemic bowel, pancreatitis, hepatitis, UTI, gastroenteritis, AAA, incarcerated hernia, bowel obstruction, constipation, inflammatory bowel, hepatitis, peptic ulcer disease, splenic infarction, perforated viscus, vulvitis, ovarian torsion, PID, kidney stone, placenta abruption, this is not meant to be an all-inclusive listle EKG interpreted by me (3pts min.). @ -None X-rays interpreted by me (1pt min.). @ -None done CT interpreted by me (1pt min.). @ -CT of abdomen and pelvis shows enteritis type changes, mild constipation U/S interpreted by me (1pt. min.). @ -None done What testing was considered but not performed or refused? (CT, X-rays, U/S, labs)? Why? @ -None What meds were considered but not given or refused? Why? @ -None Did you discuss the management of the patient with other professionals (professionals i.e. RYAN Whiting, ELECTRIC DETECTOR OPERATOR, lab, RT, psych nurse, psychotherapist social worker, enologist, teacher, special weapons and tactics officer, case management assistant)? Give summary @ -No Was smoking cessation discussed for >3mins.? @ -No Was critical care preformed (if so, how long)? @ -No Were there social determinants of health that impacted care today? How? (Homelessness, low income, unemployed, alcoholism, drug addiction, transportation, low edu. Level, literacy, decrease access to med. care, custodial, rehab)? @ -No Was there de-escalation of care discussed even if they declined (Discuss DNR or withdrawal of care, Hospice)? DNR status @ -No What co-morbidities impacted this encounter? (DM, HTN, Smoking, COPD, CAD, Cancer, CVA, ARF, Chemo, Hep., AIDS, mental health diagnosis, sleep apnea, morbid obesity)? @ -Chronic abdominal pain and IBS Was patient admitted / discharged? Hospital course, mention meds given and route, prescriptions, significant lab abnormalities, going to OR and other pertinent info. @ -Discharge patient CT shows evidence of enteritis and mild constipation. History is otherwise unremarkable. Patient is discharged in stable condition return parameters were discussed. Patient has follow-up with patient's surgeon. Undiagnosed new problem with uncertain prognosis? @ -No Drug Therapy requiring intensive monitoring for toxicity (Heparin, Nitro, Insulin, Cardizem)? @ -No Were any procedures done? @ -No Diagnosis/symptom? @ -Enteritis, abdominal pain, constipation Acute, or Chronic, or Acute on Chronic? @ -Acute] Uncomplicated (without systemic symptoms) or Complicated (systemic symptoms)? @ -[Uncomplicated] Side effects of treatment? @ -[No] Exacerbation, Progression, or Severe Exacerbation? @ -[No] Poses a threat to life or bodily function? How? (Chest pain, [place], [place], pneumonia, PE, COPD, DKA, ARF, appy, cholecystitis, CVA, Diverticulitis, Homicidal, Suicidal, threat to staff... and all critical care pts) @ -[No] (Jamel Diaz) 27 female with nonspecific abdominal pain. Patient does have constellation of symptoms including some enteritis with history, constipation and unchanged abdominal pain. Patient feels improved and can be discharged home (Charlie Mccall) - Lab Data Lab Results 10/06/22 10/06/22 10/06/22 Range/Units 15:04 15:04 15:04 WBC 10.4 (3.8-10.6) k/uL RBC 4.89 (3.80-5.40) m/uL Hgb 14.3 (11.4-16.0) gm/dL Hct 42.1 (34.0-46.0) % MCV 86.2 (80.0-100.0) fL MCH 29.3 (25.0-35.0) pg MCHC 34.0 (31.0-37.0) g/dL RDW 12.7 (11.5-15.5) % Plt Count 245 (150-450) k/uL MPV 8.0 Neutrophils % 63 % Lymphocytes % 30 % Monocytes % 4 % Eosinophils % 2 % Basophils % 1 % Neutrophils # 6.5 (1.3-7.7) k/uL Lymphocytes # 3.2 (1.0-4.8) k/uL Monocytes # 0.4 (0-1.0) k/uL Eosinophils # 0.2 (0-0.7) k/uL Basophils # 0.1 (0-0.2) k/uL Sodium 139 (137-145) mmol/L Potassium 4.2 (3.5-5.1) mmol/L Chloride 104 (98-107) mmol/L Carbon Dioxide 25 (22-30) mmol/L Anion Gap 10 mmol/L BUN 8 (7-17) mg/dL Creatinine 0.68 (0.52-1.04) mg/dL Est GFR (CKD-EPI)AfAm >90 (>60 ml/min/1.73 sqM) Est GFR (CKD-EPI)NonAf >90 (>60 ml/min/1.73 sqM) Glucose 82 (74-99) mg/dL Plasma Lactic Acid Redd 1.2 (0.7-2.0) mmol/L Calcium 9.9 (8.4-10.2) mg/dL Total Bilirubin 0.5 (0.2-1.3) mg/dL AST 32 (14-36) U/L ALT 31 (4-34) U/L Alkaline Phosphatase 47 (38-126) U/L Total Protein 8.2 (6.3-8.2) g/dL Albumin 5.0 (3.5-5.0) g/dL Lipase 34 (23-300) U/L Urine Color Urine Appearance (Clear) Urine pH (5.0-8.0) Ur Specific Arvin (1.001-1.035) Urine Protein (Negative) Urine Glucose (UA) (Negative) Urine Ketones (Negative) Urine Blood (Negative) Urine Nitrite (Negative) Urine Bilirubin (Negative) Urine Urobilinogen (<2.0) mg/dL Ur Leukocyte Esterase (Negative) Urine RBC (0-5) /hpf Urine WBC (0-5) /hpf Ur Squamous Epith Cells (0-4) /hpf Urine Bacteria (None) /hpf Urine HCG, Qual (Not Detectd) 10/06/22 10/06/22 Range/Units 15:27 15:27 WBC (3.8-10.6) k/uL RBC (3.80-5.40) m/uL Hgb (11.4-16.0) gm/dL Hct (34.0-46.0) % MCV (80.0-100.0) fL MCH (25.0-35.0) pg MCHC (31.0-37.0) g/dL RDW (11.5-15.5) % Plt Count (150-450) k/uL MPV Neutrophils % % Lymphocytes % % Monocytes % % Eosinophils % % Basophils % % Neutrophils # (1.3-7.7) k/uL Lymphocytes # (1.0-4.8) k/uL Monocytes # (0-1.0) k/uL Eosinophils # (0-0.7) k/uL Basophils # (0-0.2) k/uL Sodium (137-145) mmol/L Potassium (3.5-5.1) mmol/L Chloride (98-107) mmol/L Carbon Dioxide (22-30) mmol/L Anion Gap mmol/L BUN (7-17) mg/dL Creatinine (0.52-1.04) mg/dL Est GFR (CKD-EPI)AfAm (>60 ml/min/1.73 sqM) Est GFR (CKD-EPI)NonAf (>60 ml/min/1.73 sqM) Glucose (74-99) mg/dL Plasma Lactic Acid Redd (0.7-2.0) mmol/L Calcium (8.4-10.2) mg/dL Total Bilirubin (0.2-1.3) mg/dL AST (14-36) U/L ALT (4-34) U/L Alkaline Phosphatase (38-126) U/L Total Protein (6.3-8.2) g/dL Albumin (3.5-5.0) g/dL Lipase (23-300) U/L Urine Color Light Yellow Urine Appearance Clear (Clear) Urine pH 6.5 (5.0-8.0) Ur Specific Arvin 1.008 (1.001-1.035) Urine Protein Negative (Negative) Urine Glucose (UA) Negative (Negative) Urine Ketones Negative (Negative) Urine Blood Large H (Negative) Urine Nitrite Negative (Negative) Urine Bilirubin Negative (Negative) Urine Urobilinogen <2.0 (<2.0) mg/dL Ur Leukocyte Esterase Negative (Negative) Urine RBC 7 H (0-5) /hpf Urine WBC 2 (0-5) /hpf Ur Squamous Epith Cells 3 (0-4) /hpf Urine Bacteria Rare H (None) /hpf Urine HCG, Qual Not Detected (Not Detectd) Disposition <Jamel Diaz - Last Filed: 10/07/22 06:44> Is patient prescribed a controlled substance at d/c from ED?: No Time of Disposition: 16:50 <Charlie Mccall - Last Filed: 10/08/22 15:10> Clinical Impression: Abdominal pain, Constipation, Enteritis Disposition: HOME SELF-CARE Instructions (If sedation given, give patient instructions): Enteritis (ED) Prescriptions: Dicyclomine [Bentyl] 20 mg PO QID #30 tablet polyethylene glycoL 3350 [Miralax] 17 gm PO DAILY #14 packet Referrals: [facility] [Primary Care Provider] - 1-2 days
[2022-10-06 15:33] LABS: Basophils # (A) 0.1 k/uL (0-0.2); Basophils % (A) 1 %; Eosinophils # (A) 0.2 k/uL (0-0.7); Eosinophils % (A) 2 %; HCT 42.1 % (34.0-46.0); HGB 14.3 gm/dL (11.4-16.0); Lymphocytes # (A) 3.2 k/uL (1.0-4.8); Lymphocytes % (A) 30 %; MCH 29.3 pg (25.0-35.0); MCV 86.2 fL (80.0-100.0); Monocytes # (A) 0.4 k/uL (0-1.0); Monocytes % (A) 4 %; Neutrophils # (A) 6.5 k/uL (1.3-7.7); Neutrophils % (A) 63 %; Platelet Count 245 k/uL (150-450); RBC 4.89 m/uL (3.80-5.40); RDW 12.7 % (11.5-15.5); WBC 10.4 k/uL (3.8-10.6)
[2022-10-06 15:42] LABS: Appearance,Urine Clear (Clear); Bacteria,Urine Rare /hpf; Bilirubin,Urine Negative (Negative); Blood,Urine Large (Negative); Color,Urine Light Yellow; Glucose,Urine (UA) Negative (Negative); Ketones,Urine Negative (Negative); Leukocyte Esterase,Urine Negative (Negative); Nitrite,Urine Negative (Negative); PH, Urine 6.5 (5.0-8.0); Protein,Urine Negative (Negative); RBC,Urine 7 /hpf (0-5); Specific Gravity,Urine 1.008 (1.001-1.035); Squamous Epithelial Cell,Urine 3 /hpf (0-4); Urobilinogen,Urine <2.0 mg/dL (<2.0); WBC,Urine 2 /hpf (0-5)
[2022-10-06 15:49] LABS: ALT 31 U/L (4-34); AST 32 U/L (14-36); African American GFR (CKD) >90 (>60 ml/min/1.73 sqM); Alkaline Phosphatase 47 U/L (38-126); Anion Gap 10 mmol/L; Blood Urea Nitrogen 8 mg/dL (7-17); Calcium 9.9 mg/dL (8.4-10.2); Carbon Dioxide 25 mmol/L (22-30); Chloride 104 mmol/L (98-107); Glucose 82 mg/dL (74-99); Lipase 34 U/L (23-300); Non-African American GFR(CKD) >90 (>60 ml/min/1.73 sqM); Potassium 4.2 mmol/L (3.5-5.1); Sodium 139 mmol/L (137-145); Total Bilirubin 0.5 mg/dL (0.2-1.3); Total Protein 8.2 g/dL (6.3-8.2)
--- NOTE | 2022-10-06 16:25 | CT ---
EXAMINATION TYPE: CT abdomen pelvis w con DATE OF EXAM: 10/06/2022 COMPARISON: 07/31/2018 HISTORY: abdominal pain, constipation CT DLP: 655.5 mGycm CONTRAST: CT scan of the abdomen and pelvis is performed without Oral Contrast and with IV Contrast, patient in jected with 100 mL of Isovue 300. FINDINGS: LUNG BASES-: No visible nodule. No infiltrate. LIVER/GB: No calcified gallstones. No space occupying hepatic lesion. Biliary tree is of normal ca liber. PANCREAS: No inflammation. No distinct mass. SPLEEN: No splenic enlargement. No lesion seen. ADRENALS: No nodule. No thickening. KIDNEYS/BLADDER: No hydronephrosis. No nephrolithiasis. No distinct renal mass. Urinary bladder g rossly unremarkable. BOWEL: Normal appendix. Mild fluid distended small bowel minimal wall thickening. Correlate for enter itis. Mild constipation noted. GENITAL ORGANS: No gross abnormality. LYMPH NODES: No greater than 1cm abdominal or pelvic lymph nodes are appreciated. AORTA: No significant abnormality. OSSEOUS STRUCTURES: No significant abnormality is seen. OTHER: No significant additional abnormality is seen. IMPRESSION: 1. Mild fluid distended small bowel minimal wall thickening. Correlate for enteritis. Mild constipati on noted.
[2022-10-06] MEDS ORDERED: diphenhydrAMINE 50 MG/ML 1 ML VIAL IVP STA (17:21)
[2022-10-06] MEDS ORDERED: KETOROLAC 15 MG/ML 1 ML VIAL IVP STA (17:21)
[2022-10-06] MEDS ORDERED: DICYCLOMINE 10 MG/ML 2 ML AMP IM STA (17:21)
[2022-10-06] MEDS ORDERED: METOCLOPRAMIDE 5 MG/ML 2 ML VIAL IVP STA (17:21)
== END 2022-10-06 17:10 | disposition home or self-care (01) ==
LOC: EC 14:00
DX: K52.9 Noninfective gastroenteritis and colitis, unspecified (principal); I10 Essential (primary) hypertension; J45.909 Unspecified asthma, uncomplicated; F17.290 Nicotine dependence, other tobacco product, uncomplicated; F12.90 Cannabis use, unspecified, uncomplicated; F31.9 Bipolar disorder, unspecified; F41.9 Anxiety disorder, unspecified; Z79.899 Other long term (current) drug therapy
CPT/HCPCS: 36415; 80053; 83605; 83690; 85025; 81001; 81025; 74177; 99284; 96360; Q9967

== ENCOUNTER 2022-10-27 11:09 | Emergency (ER) | payer MEDICARE, OTHER ==
[2022-10-27 11:32] VITALS: BP 131/83; PULSE 106; RESP 20; TEMP 99
--- NOTE | 2022-10-27 12:07 | ED ---
General Adult HPI - General Chief complaint: Skin/Abscess/Foreign Body Stated complaint: TUMOR L BREAST, RUPTURED Time Seen by Provider: 10/27/22 11:39 Source: patient, RN notes reviewed Mode of arrival: ambulatory Limitations: no limitations - History of Present Illness Initial comments: 27-year-old female presents to the emergency department chief complaint of left- sided breast discomfort. Patient has bilateral breast implants that were put in last year at [facility] with Dr. Tamayo. She reports that there is some redness near the nipple where the scar is. She denies fever but admits to chills. Denies nausea, vomiting. She denies taking any daily medication. Denies medication allergies. - Related Data Home Medications Medication Instructions Recorded Confirmed Aripiprazole Lauroxil [Aristada] 441 mg IM Q28D 10/06/22 10/06/22 Methylphenidate HCl [Concerta] 54 mg PO DAILY 10/06/22 10/06/22 Omeprazole [PriLOSEC] 40 mg PO DAILY 10/06/22 10/06/22 Pregabalin 150 mg PO BID 10/06/22 10/06/22 busPIRone HCL 15 mg PO TID 10/06/22 10/06/22 Previous Rx's Medication Instructions Recorded Dicyclomine [Bentyl] 20 mg PO QID #30 tablet 10/06/22 polyethylene glycoL 3350 [Miralax] 17 gm PO DAILY #14 packet 10/06/22 Sulfamethox-Tmp 800-160Mg [Bactrim 1 each PO Q12HR #14 tab 10/27/22 Ds] Allergies Allergy/AdvReac Type Severity Reaction Status Date / Time No Known Allergies Allergy Verified 10/27/22 11:32 Review of Systems ROS Statement: Those systems with pertinent positive or pertinent negative responses have been documented in the HPI. ROS Other: All systems not noted in ROS Statement are negative. 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 hemorrhoids, mole on anus. group b strep + during x2 History of Any Multi-Drug Resistant Organisms: None Reported Past Surgical History: Breast Surgery, Section, Tonsillectomy Additional Past Surgical History / Comment(s): breast implants removed Past Anesthesia/Blood Transfusion Reactions: No Reported Reaction Past Psychological History: Anxiety, Bipolar, Depression, PTSD Smoking Status: Current every day smoker, Vaper Past Alcohol Use History: None Reported Past Drug Use History: Marijuana - Past Family History Father Family Medical History: Hypertension Additional Family Medical History / Comment(s): Paternal grandpa-colon cancer. Mother Family Medical History: Cancer Additional Family Medical History / Comment(s): Bipolar, breast cancer. General Exam Limitations: no limitations General appearance: alert, anxious Head exam: Present: atraumatic, normocephalic, normal inspection Eye exam: Present: normal appearance, PERRL, EOMI. Absent: scleral icterus, conjunctival injection, periorbital swelling ENT exam: Present: normal exam, mucous membranes moist Neck exam: Present: normal inspection. Absent: tenderness, meningismus, lymphadenopathy Respiratory exam: Present: normal lung sounds bilaterally. Absent: respiratory distress, wheezes, rales, rhonchi, stridor Cardiovascular Exam: Present: regular rate, normal rhythm, normal heart sounds. Absent: systolic murmur, diastolic murmur, rubs, gallop, clicks GI/Abdominal exam: Present: soft, normal bowel sounds. Absent: distended, tenderness, guarding, rebound, rigid Extremities exam: Present: normal inspection, full ROM, normal capillary refill. Absent: tenderness, pedal edema, joint swelling, calf tenderness Back exam: Present: normal inspection Neurological exam: Present: alert, oriented X3 Psychiatric exam: Present: agitated, anxious Skin exam: Present: warm, dry, intact, erythema (small erythematous area at left breast scar), other (tenderness to palpation of left breast, no palpable mass). Absent: rash Course Vital Signs 10/27/22 11:29 Temperature 99.0 F Pulse Rate 106 H Respiratory 20 Rate Blood Pressure 131/83 O2 Sat by Pulse 99 Oximetry Medical Decision Making - Medical Decision Making Was pt. sent in by a medical professional or institution (, PA, RADIO PROGRAM DIRECTOR, urgent care, hospital, or snf...) When possible be specific @ -No Did you speak to anyone other than the patient for history (EMS, parent, family, police, friend...)? What history was obtained from this source @ -No Did you review nursing and triage notes (agree or disagree)? Why? @ -I reviewed and agree with nursing and triage notes Were old charts reviewed (outside hosp., previous admission, EMS record, old EKG, old radiological studies, urgent care reports/EKG's, snf records)? Report findings @ -No old charts were reviewed Differential Diagnosis (chest pain, altered mental status, abdominal pain women, abdominal pain men, vaginal bleeding, weakness, fever, dyspnea, syncope, headache, dizziness, GI bleed, back pain, seizure, CVA, palpatations, mental health, musculoskeletal)? @ -cellulitis, breast mass, breast abscess, mastitis, this list is not all inclusive EKG interpreted by me (3pts min.). @ -none X-rays interpreted by me (1pt min.). @ -None done CT interpreted by me (1pt min.). @ -None done U/S interpreted by me (1pt. min.). @ -Left breast US showed no solid or cystic lesion or duct ectasia, no axillary lymphadenopathy as interpreted by radiology What testing was considered but not performed or refused? (CT, X-rays, U/S, lab s)? Why? @ -None What meds were considered but not given or refused? Why? @ -None Did you discuss the management of the patient with other professionals (professionals i.e. , PA, RADIO PROGRAM DIRECTOR, lab, RT, psych nurse, nephrology social worker, cover creaser, teacher, mortgage loan officer, manager case management)? Give summary @ -No Was smoking cessation discussed for >3mins.? @ -No Was critical care preformed (if so, how long)? @ -No Were there social determinants of health that impacted care today? How? (Homelessness, low income, unemployed, alcoholism, drug addiction, transportation, low edu. Level, literacy, decrease access to med. care, residential, rehab)? @ -No Was there de-escalation of care discussed even if they declined (Discuss DNR or withdrawal of care, Hospice)? DNR status @ -No What co-morbidities impacted this encounter? (DM, HTN, Smoking, COPD, CAD, Cancer, CVA, ARF, Chemo, Hep., AIDS, mental health diagnosis, sleep apnea, morbid obesity)? @ -None Was patient admitted / discharged? Hospital course, mention meds given and route, prescriptions, significant lab abnormalities, going to OR and other pertinent info. @ -Discharged. Patient presented to the emergency department with chief complaint of left breast discomfort and "mass". Patient is concerned that she has cancer and that her breast surgeon but her implant over a mass. She states that the left breast is tender with palpation. US obtained which showed no solid or cystic lesion duct ectasia, no axillary lymphadenopathy. CBC showed 13.8, hgb 12.8; CMP showed Na 140, K 3.3. There is a small erythematous region near the scar without any open skin or drainage which will be treated as a cellulitis. She is advised to follow up with her breast surgeon for removal if she desires. Patient stable at time of discharge. Case discussed with my attending, Dr. Blankenship who is agreeable with plan. Undiagnosed new problem with uncertain prognosis? @ -No Drug Therapy requiring intensive monitoring for toxicity (Heparin, Nitro, Insulin, Cardizem)? @ -No Were any procedures done? @ -No Diagnosis/symptom? @ -breast cellulitis Acute, or Chronic, or Acute on Chronic? @ -Acute Uncomplicated (without systemic symptoms) or Complicated (systemic symptoms)? @ -Uncomplicated Side effects of treatment? @ -No Exacerbation, Progression, or Severe Exacerbation? @ -No Poses a threat to life or bodily function? How? (Chest pain, [place], [place], pneumonia, PE, COPD, DKA, ARF, appy, cholecystitis, CVA, Diverticulitis, Homicidal, Rodriguez icidal, threat to staff... and all critical care pts) @ -No - Lab Data Result diagrams: 10/27/22 12:10 10/27/22 12:10 Lab Results 10/27/22 10/27/22 Range/Units 12:10 12:10 WBC 13.8 H (3.8-10.6) k/uL RBC 4.40 (3.80-5.40) m/uL Hgb 12.8 (11.4-16.0) gm/dL Hct 37.4 (34.0-46.0) % MCV 85.0 (80.0-100.0) fL MCH 29.1 (25.0-35.0) pg MCHC 34.3 (31.0-37.0) g/dL RDW 13.0 (11.5-15.5) % Plt Count 224 (150-450) k/uL MPV 8.3 Neutrophils % 60 % Lymphocytes % 33 % Monocytes % 5 % Eosinophils % 1 % Basophils % 0 % Neutrophils # 8.3 H (1.3-7.7) k/uL Lymphocytes # 4.6 (1.0-4.8) k/uL Monocytes # 0.6 (0-1.0) k/uL Eosinophils # 0.1 (0-0.7) k/uL Basophils # 0.0 (0-0.2) k/uL Sodium 140 (137-145) mmol/L Potassium 3.3 L (3.5-5.1) mmol/L Chloride 107 (98-107) mmol/L Carbon Dioxide 26 (22-30) mmol/L Anion Gap 7 mmol/L BUN 12 (7-17) mg/dL Creatinine 0.74 (0.52-1.04) mg/dL Est GFR (CKD-EPI)AfAm >90 (>60 ml/min/1.73 sqM) Est GFR (CKD-EPI)NonAf >90 (>60 ml/min/1.73 sqM) Glucose 92 (74-99) mg/dL Calcium 8.7 (8.4-10.2) mg/dL Total Bilirubin 0.3 (0.2-1.3) mg/dL AST 19 (14-36) U/L ALT 20 (4-34) U/L Alkaline Phosphatase 44 (38-126) U/L Total Protein 6.4 (6.3-8.2) g/dL Albumin 3.8 (3.5-5.0) g/dL Disposition Clinical Impression: Cellulitis of left breast Disposition: HOME SELF-CARE Condition: Stable Instructions (If sedation given, give patient instructions): Cellulitis (ED) Additional Instructions: Please follow-up with your surgeon for breast implant removal if desired. Follow up with her primary care provider. Return to the emergency department for new or worsening symptoms Prescriptions: Sulfamethox-Tmp 800-160Mg [Bactrim Ds] 1 each PO Q12HR #14 tab Is patient prescribed a controlled substance at d/c from ED?: No Referrals: None,Stated [REFERRING] - 1-2 days Time of Disposition: 14:07
[2022-10-27 12:28] LABS: Basophils % (A) 0 %; Eosinophils # (A) 0.1 k/uL (0-0.7); Eosinophils % (A) 1 %; HCT 37.4 % (34.0-46.0); HGB 12.8 gm/dL (11.4-16.0); Lymphocytes # (A) 4.6 k/uL (1.0-4.8); Lymphocytes % (A) 33 %; MCH 29.1 pg (25.0-35.0); MCHC 34.3 g/dL (31.0-37.0); Mean Platelet Volume 8.3; Monocytes # (A) 0.6 k/uL (0-1.0); Monocytes % (A) 5 %; Neutrophils # (A) 8.3 k/uL (1.3-7.7); Neutrophils % (A) 60 %; Platelet Count 224 k/uL (150-450); WBC 13.8 k/uL (3.8-10.6)
[2022-10-27 12:46] LABS: ALT 20 U/L (4-34); AST 19 U/L (14-36); African American GFR (CKD) >90 (>60 ml/min/1.73 sqM); Albumin 3.8 g/dL (3.5-5.0); Alkaline Phosphatase 44 U/L (38-126); Anion Gap 7 mmol/L; Blood Urea Nitrogen 12 mg/dL (7-17); Calcium 8.7 mg/dL (8.4-10.2); Carbon Dioxide 26 mmol/L (22-30); Chloride 107 mmol/L (98-107); Glucose 92 mg/dL (74-99); Non-African American GFR(CKD) >90 (>60 ml/min/1.73 sqM); Potassium 3.3 mmol/L (3.5-5.1); Sodium 140 mmol/L (137-145); Total Bilirubin 0.3 mg/dL (0.2-1.3); Total Protein 6.4 g/dL (6.3-8.2)
--- NOTE | 2022-10-27 14:52 | USB ---
Reason for Exam: Clinical finding. Technique: Method: Targeted. Findings: The lower section of the breast of the left breast, the axilla of the left breast and the retroareolar of the left breast were scanned. Targeted ultrasound left breast inferior half from 3:00 to 9:00 including scanning of the subareolar region and axilla. Underlying breast implant is demonstrated. No solid or cystic lesion or duct ectasia. No axillary lymphadenopathy.. Overall Assessment: Benign, BI-RAD 2 Management: Screening Mammogram of both breasts at age 40. Unless there is clinical indication to start sooner. These results should not preclude additional follow-up of suspicious palpable abnormalities. If there is concern for implant complication, breast MRI can be performed. A clinical breast exam by your physician is recommended on an annual basis and results should be correlated with mammographic findings. Results were given to the patient verbally at the time of exam. Electronically signed and approved by: Linda Flores M.D. Radiologist
== END 2022-10-27 14:25 | disposition home or self-care (01) ==
LOC: EC 11:09
DX: N61.0 Mastitis without abscess (principal); I10 Essential (primary) hypertension; J45.909 Unspecified asthma, uncomplicated; F31.9 Bipolar disorder, unspecified; F41.9 Anxiety disorder, unspecified; F17.290 Nicotine dependence, other tobacco product, uncomplicated; F12.90 Cannabis use, unspecified, uncomplicated; Z79.899 Other long term (current) drug therapy
CPT/HCPCS: 36415; 80053; 85025; 99283

== ENCOUNTER 2023-01-03 07:11 | Day surgery (SDC) | payer MEDICARE, OTHER ==
[~2023-01-03 07:11] MED LIST changes: +HYDROmorphone 0.5 MG/0.5 ML SYRINGE IVP PRN; -LIDOCAINE 1% (10MG/ML) FOR IV START INTRADERMA PRN; -SCOPOLAMINE 1.5MG/72HR PATCH TRANSDERM ONE
[2023-01-03 07:49] LABS: Glucose,Whole Blood 104 mg/dL (70-110)
[2023-01-03] MEDS ORDERED: fentaNYL (PF) 50 MCG/ML 2 ML AMP ONE (08:45)
[2023-01-03] MEDS ORDERED: SUCCINYLCHOLINE CHLORIDE 200 MG/10 ML VIAL IV ONE (08:45)
[2023-01-03] MEDS ORDERED: MIDAZOLAM 2 MG/2 ML VIAL ONE (08:45)
[2023-01-03] MEDS ORDERED: PROPOFOL 10 MG/ML 20 ML VIAL IV ONE (08:45)
[2023-01-03] MEDS ORDERED: LIDOCAINE 1% INJ 10MG/ML (20 ML MDV) ONE (08:45)
[2023-01-03] MEDS ORDERED: ceFAZolin 1,000 MG VIAL ONE (09:13)
[2023-01-03] MEDS ORDERED: SODIUM CHLORIDE 0.9% 100 ML with ceFAZolin 2,000 MG IV ONE ×2 (09:13)
[2023-01-03] MEDS ORDERED: SODIUM CHLORIDE 0.9% 100 ML BAG ONE (09:13)
[2023-01-03] MEDS ORDERED: BUPIVACAINE (PF) 0.5% 30 ML VIAL SQ ONE (09:14)
[2023-01-03] MEDS ORDERED: GELATIN SPONGE,ABSORB (LARGE) 1 EACH SPONGE TOPICAL ONE (09:15)
--- NOTE | 2023-01-03 09:26 | P.OP ---
Date of Procedure: 01/03/23 Preoperative Diagnosis: Internal and external hemorrhoids Postoperative Diagnosis: Internal and external hemorrhoids Procedure(s) Performed: Internal and external hemorrhoidectomy Anesthesia: RAFAEL Surgeon: Sourav Pineda Estimated Blood Loss (ml): 5 Pathology: other (Internal and external hemorrhoids) Condition: stable Disposition: PACU Description of Procedure: The patient's placed on the operative table in the prone position after receiving general endotracheal tube anesthesia. Her anus appropriately sterile fashion. These were examined. There were external and internal hemorrhoids noted. The anal retractors placed anus. And at the 7 o'clock position there was internal and external hemorrhoids colon. This was grasped with clamp scissors the hemorrhoid was performed. Another hemorrhoidal column was removed the 10 o'clock position. This was done in identical fashion. The anus dissecting cyst. There is no bleeding seen. The patient tolerated procedure well. She was sent to recovery room in stable condition.
[2023-01-03] MEDS ORDERED: KETOROLAC 15 MG/ML 1 ML VIAL IVP ONE (09:42)
[2023-01-03 09:46] VITALS: TEMP 97.9
[2023-01-03 10:34] VITALS: BP 123/57; PULSE 77; RESP 16
== END 2023-01-03 10:33 | disposition home or self-care (01) ==
LOC: OR 07:11
PROVIDERS: ATTEND Surgery
DX: K64.4 Residual hemorrhoidal skin tags (principal); K64.8 Other hemorrhoids; I10 Essential (primary) hypertension; J45.909 Unspecified asthma, uncomplicated; F17.290 Nicotine dependence, other tobacco product, uncomplicated; F43.10 Post-traumatic stress disorder, unspecified; F32.A Depression, unspecified; F12.90 Cannabis use, unspecified, uncomplicated; Z79.2 Long term (current) use of antibiotics; Z79.891 Long term (current) use of opiate analgesic; Z79.83 Long term (current) use of bisphosphonates; Z98.86 Personal history of breast implant removal; Z98.890 Other specified postprocedural states; Z82.49 Family history of ischemic heart disease and other diseases of the circulatory system; Z81.8 Family history of other mental and behavioral disorders
CPT/HCPCS: 46260; 81025; 88304; J2250; J0330; J1100; J2405; J0690; J2001; J3010; J1885; J2704; J1644; J0665

== ENCOUNTER → 2023-03-30 | Outpatient (CLI) | payer MEDICARE, OTHER ==
[2023-03-30 16:04] LABS: Basophils # (A) 0.06 X 10*3/uL (0.00-0.10); Basophils % (A) 0.8 %; Eosinophils # (A) 0.14 X 10*3/uL (0.04-0.35); Eosinophils % (A) 1.8 %; HCT 40.5 % (37.2-46.3); HGB 13.2 g/dL (12.0-15.0); Lymphocytes # (A) 1.82 X 10*3/uL (0.90-5.00); Lymphocytes % (A) 23.8 %; MCH 27.6 pg (27.0-32.0); MCHC 32.6 g/dL (32.0-37.0); MCV 84.7 FL (80.0-97.0); Mean Platelet Volume 10.8 FL (9.5-12.2); Monocytes # (A) 0.52 X 10*3/uL (0.20-1.00); Monocytes % (A) 6.8 %; NRBC Per 100 WBC 0 X 10*3/uL (0.00-0.01); Neutrophils # (A) 5.08 X 10*3/uL (1.80-7.70); Neutrophils % (A) 66.5 %; Platelet Count 289 X 10*3/uL (140-440); RBC 4.78 X 10*6/uL (4.10-5.20); RDW 13.1 % (11.5-14.5); WBC 7.64 X 10*3/uL (4.50-10.00)
== END | disposition home or self-care (01) ==
LOC: LABPAT 07:16
PROVIDERS: ATTEND Surgery
DX: Z01.818 Encounter for other preprocedural examination (principal); K42.9 Umbilical hernia without obstruction or gangrene
CPT/HCPCS: 36415; 85025; 86850; 86900; 86901; 93005

== ENCOUNTER 2023-04-06 05:31 | Day surgery (SDC) | payer MEDICARE, OTHER ==
[2023-03-31 11:17] VITALS: BMI 24.7
[2023-04-06] MEDS ORDERED: LIDOCAINE 1% (10MG/ML) FOR IV START INTRADERMA PRN (06:10)
[2023-04-06] MEDS: LACTATED RINGERS 1,000 ML IV SCH (06:16)
[2023-04-06] MEDS: HEPARIN SODIUM,PORCINE 5,000 UNIT/ML 1 ML VIAL SQ PRN (06:40)
[2023-04-06] MEDS: DEXAMETHASONE SOD PHOSPHATE 4 MG/ML 1 ML VIAL IV ONE (06:40)
[2023-04-06] MEDS: ACETAMINOPHEN TAB 500 MG TAB PO PRN (06:40)
[2023-04-06] MEDS: ONDANSETRON 4 MG/2 ML VIAL IVP ONE ×2 (06:41→09:05)
[2023-04-06] MEDS: fentaNYL (PF) 50 MCG/ML 2 ML AMP IVP ONE (06:47)
[2023-04-06] MEDS: MIDAZOLAM 2 MG/2 ML VIAL IVP ONE ×2 (06:47→09:00)
[2023-04-06] MEDS ORDERED: MIDAZOLAM 2 MG/2 ML VIAL IV PRN (07:00)
[2023-04-06] MEDS ORDERED: PROPOFOL 10 MG/ML 20 ML VIAL IV ONE (07:23)
[2023-04-06] MEDS ORDERED: PHENYLEPHRINE-0.9% NACL SYG 1,000 MCG/10 ML SYRINGE ONE (07:23)
[2023-04-06] MEDS ORDERED: DEXAMETHASONE SOD PHOSPHATE 4 MG/ML 1 ML VIAL ONE (07:23)
[2023-04-06] MEDS ORDERED: KETOROLAC 15 MG/ML 1 ML VIAL ONE (07:23)
[2023-04-06] MEDS ORDERED: GLYCOPYRROLATE 0.2 MG/ML 2 ML VIAL ONE (07:23)
[2023-04-06] MEDS ORDERED: diphenhydrAMINE 50 MG/ML 1 ML VIAL ONE (07:23)
[2023-04-06] MEDS ORDERED: MIDAZOLAM 2 MG/2 ML VIAL ONE (07:23)
[2023-04-06] MEDS ORDERED: SODIUM CHLORIDE 0.9% (PF) 10 ML VIAL ONE (07:23)
[2023-04-06] MEDS ORDERED: HYDROmorphone (PF) 1 MG/ML ONE (07:23)
[2023-04-06] MEDS ORDERED: ROCURONIUM 10 MG/ML (5 ML VIAL) IV ONE (07:23)
[2023-04-06] MEDS ORDERED: fentaNYL (PF) 50 MCG/ML 2 ML AMP ONE (07:23)
[2023-04-06] MEDS ORDERED: LIDOCAINE 1% INJ 10MG/ML (20 ML MDV) ONE (07:23)
[2023-04-06] MEDS ORDERED: SUCCINYLCHOLINE CHLORIDE 200 MG/10 ML VIAL IV ONE (07:23)
[2023-04-06] MEDS ORDERED: NEOSTIGMINE 1 MG/ML 10 ML VIAL ONE (07:23)
[2023-04-06] MEDS ORDERED: KETAMINE HCL IN 0.9 % NACL 50 MG/5 ML SYRINGE ONE (07:23)
[2023-04-06] MEDS ORDERED: ROPIVACAINE 5 MG/ML 30 ML VIAL ONE (07:23)
[2023-04-06] MEDS: LIDOCAINE 0.5%-EPI 1:200,000 50 ML VIAL SQ ONE ×2 (07:56)
--- NOTE | 2023-04-06 08:56 | P.OP ---
Date of Procedure: 04/06/23 Preoperative Diagnosis: Umbilical hernia Postoperative Diagnosis: Umbilical hernia Procedure(s) Performed: Laparoscopic robotic repair of umbilical hernia Partial omentectomy Transversus abdominis plane block Anesthesia: RAFAEL Surgeon: Sourav Pineda Estimated Blood Loss (ml): 5 Pathology: other (Hernia sac/omentum) Condition: stable Disposition: PACU Description of Procedure: The patient was placed on the operating table in the supine position. He received general anesthesia. His abdomen was prepped and draped usual fashion. Using a 5 mm optical trocar under direct visualization the peritoneal cavity was entered in the left upper quadrant. The abdomen was then insufflated. The laparoscope was placed back into the perineal cavity. Next a 8 mm robotic trocar was placed in the left lower quadrant and a 12 mm robotic trocar was placed in the left lateral position. The original 5 mm trocar was exchanged for a 8 mm robotic trocar. A four-quadrant transversus abdominis plane block was then performed using 1% local Xylocaine. The patient's placed in the left side up position. And the patient was knocked ocked the robot. The umbilical hernia was visualized. Using hook cautery the peritoneum over the umbilical hernia was excised. The incarcerated omentum and hernia sac were dissected and sent to pathology. The fascial opening was repaired using 0V LOC suture. Next a piece of 11 cm round ventral light ST mesh was placed into the. Cavity and secured with 2 OV lock suture. The patient was undocked the robot. The needles were retrieved. The fascia of the 12 mm trocar site was closed with 0 Ethibond suture. Skin was closed interrupted 3-0 Monocryl suture. Dermabond dressings was applied. Patient top procedure well and was sent to recovery room stable condition.
[2023-04-06] MEDS: HYDROmorphone 0.5 MG/0.5 ML SYRINGE IVP PRN (08:57)
[2023-04-06 09:12] VITALS: TEMP 97.2
--- NOTE | 2023-04-06 09:22 | P.ANPRN ---
Procedure Note - Anesthesia - Nerve Block Performed Bilateral Erector Spinae Single Time Out Performed: Yes Date of Procedure: 04/06/23 Procedure Start Time: 06:46 Procedure Stop Time: 06:54 Location of Patient: PreOp Indication: Acute Post-Operative Pain, Requested by Surgeon Sedation Type: Sedate with meaningful contact maintained Preparation: Sterile Prep Position: Prone Needle Types: Pajunk Needle Gauge: 21 Ultrasound used to visualize needle placement: Yes Ultrasound used to observe medication spread: Yes Injectate: 0.5% Ropivacaine (see comment for volume) (20 ml + 10 ml NS + 4 mg dexamethasone per side) Blood Aspirated: No Pain Paresthesia on Injection Noted: No Resistance on Injection: Normal Image Stored and Saved: Yes Events: Uneventful and Well Tolerated
[2023-04-06 09:42] VITALS: RESP 16
[2023-04-06 10:43] VITALS: BP 122/77; PULSE 87
== END 2023-04-06 10:51 | disposition home or self-care (01) ==
LOC: OR 05:31
PROVIDERS: ATTEND Surgery
DX: K42.9 Umbilical hernia without obstruction or gangrene (principal); G89.18 Other acute postprocedural pain; Z91.040 Latex allergy status; F41.9 Anxiety disorder, unspecified; Z90.89 Acquired absence of other organs; Z98.891 History of uterine scar from previous surgery; Z82.49 Family history of ischemic heart disease and other diseases of the circulatory system; Z79.899 Other long term (current) drug therapy
CPT/HCPCS: 81025; 64999; 49591; C1781; J2250; J0330; J1200; J1644; J1100; J2710; J0690; J2405; J2001; J3010; J1170 ×2; J2795; J1885; J2704; J2371; 88305

== ENCOUNTER 2023-04-07 09:33 | Emergency (ER) | payer MEDICARE, OTHER ==
[2023-04-07 09:59] VITALS: BP 138/94; PULSE 83; RESP 18; TEMP 97.8
[2023-04-07] MEDS: HYDROmorphone 1 MG/ML 1 ML SYRINGE IVP STA ×2 (10:19→12:03)
[2023-04-07] MEDS: SODIUM CHLORIDE 0.9% 1,000 ML IV STA (10:20)
--- NOTE | 2023-04-07 10:22 | ED ---
General Adult HPI - General Chief complaint: Abdominal Pain Stated complaint: Post op hernia complications Time Seen by Provider: 04/07/23 09:48 Source: patient Mode of arrival: wheelchair Limitations: no limitations - History of Present Illness Initial comments: Dictation was produced using [employer] dictation software. please excuse any grammatical, word or spelling errors. Chief Complaint: 27-year-old female with postoperative abdominal pain History of Present Illness: Patient 27-year-old female she had umbilical hernia repair performed by Dr. Pineda yesterday. States that after the surgery pain was just out of this world. Patient unable to have any bowel movements. She is not passing gas. She states that the pain is severe. Denies any fevers. The ROS documented in this emergency department record has been reviewed and confirmed by me. Those systems with pertinent positive or negative responses have been documented in the HPI. All other systems are other negative and/or noncontributory. - Related Data Home Medications Medication Instructions Recorded Confirmed Aripiprazole Lauroxil [Aristada] 441 mg IM Q28D 10/06/22 04/06/23 cloNIDine HCL 0.1 mg PO DAILY PRN 03/31/23 04/06/23 Previous Rx's Medication Instructions Recorded Acetaminophen Tab [Tylenol] 650 mg PO Q6H #30 tab 04/06/23 Docusate [Colace] 100 mg PO BID #20 capsule 04/06/23 Ibuprofen [Motrin] 600 mg PO Q6HR PRN #40 tab 04/06/23 oxyCODONE HCL [OxyIR] 5 mg PO Q6H PRN 3 Days #10 tab 04/06/23 Allergies Allergy/AdvReac Type Severity Reaction Status Date / Time No Known Allergies Allergy Verified 04/07/23 09:45 Review of Systems ROS Statement: Those systems with pertinent positive or pertinent negative responses have been documented in the HPI. ROS Other: All systems not noted in ROS Statement are negative. 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 hemorrhoids, mole on anus. group b strep + during x2 History of Any Multi-Drug Resistant Organisms: None Reported Past Surgical History: Adenoidectomy, Breast Surgery, Section, Tonsillectomy Additional Past Surgical History / Comment(s): breast implants removed and replaced, hernia repain 2/7/24 Past Anesthesia/Blood Transfusion Reactions: No Reported Reaction Past Psychological History: Anxiety, Bipolar, Depression, PTSD Smoking Status: Current every day smoker, Vaper Past Alcohol Use History: None Reported Past Drug Use History: Marijuana - Past Family History Father Family Medical History: Hypertension Additional Family Medical History / Comment(s): Paternal grandpa-colon cancer. Mother Family Medical History: Cancer Additional Family Medical History / Comment(s): Bipolar, breast cancer. General Exam - General Exam Comments Initial Comments: PHYSICAL EXAM: General Impression: Alert and oriented x3, acute distress secondary to pain HEENT: Normocephalic atraumatic, extra-ocular movements intact, pupils equal and reactive to light bilaterally, mucous membranes moist. Cardiovascular: Heart regular rate and rhythm Chest: Able to complete full sentences, no retractions, no tachypnea Abdomen: abdomen soft, diffuse palpatory tenderness, non-distended, no organomegaly, surgical sites clean dry and intact Musculoskeletal: Pulses present and equal in all extremities, no peripheral edema Motor: no focal deficits noted Neurological: CN II-XII grossly intact, no focal motor or sensory deficits noted Skin: Intact with no visualized rashes Psych: Normal affect and mood Limitations: no limitations Course Vital Signs 04/07/23 09:41 Temperature 97.8 F Pulse Rate 83 Respiratory 18 Rate Blood Pressure 138/94 O2 Sat by Pulse 97 Oximetry Medical Decision Making - Medical Decision Making Was pt. sent in by a medical professional or institution (, PA, COIL WINDER STRAP, urgent care, hospital, or ch[facility]...) When possible be specific @ -No Did you speak to anyone other than the patient for history (EMS, parent, family, police, friend...)? What history was obtained from this source @ -No Did you review nursing and triage notes (agree or disagree)? Why? @ -I reviewed and agree with nursing and triage notes Were old charts reviewed (outside hosp., previous admission, EMS record, old EKG, old radiological studies, urgent care reports/EKG's, ch[facility] records)? Report findings @ -No old charts were reviewed Differential Diagnosis (chest pain, altered mental status, abdominal pain women, abdominal pain men, vaginal bleeding, musculoskeletal, weakness, fever, dyspnea, syncope, headache, dizziness, GI bleed, back pain, seizure, CVA, palpatations, mental health)? @ -Differential Abdominal Pain Women: Appendicitis, Cholecystitis, diverticulosis, ischemic bowel, pancreatitis, hepatitis, UTI, gastroenteritis, AAA, incarcerated hernia, bowel obstruction, constipation, inflammatory bowel, hepatitis, peptic ulcer disease, splenic infarction, perforated viscus, vulvitis, ovarian torsion, PID, kidney stone, placenta abruption, this is not meant to be an all-inclusive list EKG interpreted by me (3pts min.). @ -None done X-rays interpreted by me (1pt min.). @ -None done CT interpreted by me (1pt min.). @ -CT scan of the abdomen pelvis shows no obvious postoperative complications U/S interpreted by me (1pt. min.). @ -None done What testing was considered but not performed or refused? (CT, X-rays, U/S, labs)? Why? @ -None What meds were considered but not given or refused? Why? @ -None Did you discuss the management of the patient with other professionals (professionals i.e. , PA, COIL WINDER STRAP, lab, RT, psych nurse, rn social work, event specialist food demonstrator, teacher, disability liaison officer, immigration case manager)? Give summary @ -Case discussed with Dr. Pineda who recommends patient be discharged follow-up outpatient Was smoking cessation discussed for >3mins.? @ -No Was critical care preformed (if so, how long)? @ -No Were there social determinants of health that impacted care today? How? (Homelessness, low income, unemployed, alcoholism, drug addiction, transpo rtation, low edu. Level, literacy, decrease access to med. care, [facility], rehab)? @ -No Was there de-escalation of care discussed even if they declined (Discuss DNR or withdrawal of care, Hospice)? DNR status @ -No What co-morbidities impacted this encounter? (DM, HTN, Smoking, COPD, CAD, Cancer, CVA, ARF, Chemo, Hep., AIDS, mental health diagnosis, sleep apnea, morbid obesity)? @ -None Was patient admitted / discharged? Hospital course, mention meds given and route, prescriptions, significant lab abnormalities, going to OR and other pertinent info. @ -27-year-old female presents with postoperative abdominal pain. Vital signs stable. Laboratory evaluation is unremarkable. Patient given analgesics with improvement of symptoms. CT shows no obvious postoperative complications. Case discussed with general surgery who recommends patient be admitted given that she has a normal CT. Patient agreeable to discharge. Undiagnosed new problem with uncertain prognosis? @ -No Drug Therapy requiring intensive monitoring for toxicity (Heparin, Nitro, Insulin, Cardizem)? @ -No Were any procedures done? @ -No Diagnosis/symptom? Acute, or Chronic, or Acute on Chronic? Uncomplicated (without systemic symptoms) or Complicated (systemic symptoms)? @ -Postoperative abdominal pain Side effects of treatment? @ -No Exacerbation, Progression, or Severe Exacerbation? @ -No Poses a threat to life or bodily function? How? (Chest pain, [place], [place], pneumonia, PE, COPD, DKA, ARF, appy, cholecystitis, CVA, Diverticulitis, Homicidal, Suicidal, threat to staff... and all critical care pts) @ -No - Lab Data Result diagrams: 04/07/23 10:15 04/07/23 10:15 Lab Results 04/07/23 04/07/23 04/07/23 Range/Units 10:15 10:15 10:15 WBC 13.7 H (3.8-10.6) k/uL RBC 4.05 (3.80-5.40) m/uL Hgb 12.1 (11.4-16.0) gm/dL Hct 34.1 (34.0-46.0) % MCV 84.1 (80.0-100.0) fL MCH 30.0 (25.0-35.0) pg MCHC 35.6 (31.0-37.0) g/dL RDW 13.2 (11.5-15.5) % Plt Count 213 (150-450) k/uL MPV 8.7 Neutrophils % 71 % Lymphocytes % 22 % Monocytes % 5 % Eosinophils % 0 % Basophils % 0 % Neutrophils # 9.7 H (1.3-7.7) k/uL Lymphocytes # 3.0 (1.0-4.8) k/uL Monocytes # 0.7 (0-1.0) k/uL Eosinophils # 0.0 (0-0.7) k/uL Basophils # 0.0 (0-0.2) k/uL Sodium 137 (137-145) mmol/L Potassium 3.8 (3.5-5.1) mmol/L Chloride 108 H (98-107) mmol/L Carbon Dioxide 23 (22-30) mmol/L Anion Gap 6 mmol/L BUN 11 (7-17) mg/dL Creatinine 0.67 (0.52-1.04) mg/dL Est GFR (CKD-EPI)AfAm >90 (>60 ml/min/1.73 sqM) Est GFR (CKD-EPI)NonAf >90 (>60 ml/min/1.73 sqM) Glucose 96 (74-99) mg/dL Plasma Lactic Acid Redd 1.0 (0.7-2.0) mmol/L Calcium 9.0 (8.4-10.2) mg/dL Total Bilirubin 0.5 (0.2-1.3) mg/dL AST 40 H (14-36) U/L ALT 17 (4-34) U/L Alkaline Phosphatase 54 (38-126) U/L Total Protein 6.5 (6.3-8.2) g/dL Albumin 4.1 (3.5-5.0) g/dL Disposition Clinical Impression: Abdominal pain Disposition: HOME SELF-CARE Condition: Fair Instructions (If sedation given, give patient instructions): Abdominal Pain (ED) Is patient prescribed a controlled substance at d/c from ED?: No Referrals: Sourav Pineda MD [STAFF PHYSICIAN] - 1-2 days Time of Disposition: 12:42
[2023-04-07 10:35] LABS: Basophils % (A) 0 %; Eosinophils % (A) 0 %; HCT 34.1 % (34.0-46.0); HGB 12.1 gm/dL (11.4-16.0); Lymphocytes % (A) 22 %; MCHC 35.6 g/dL (31.0-37.0); MCV 84.1 fL (80.0-100.0); Mean Platelet Volume 8.7; Monocytes # (A) 0.7 k/uL (0-1.0); Monocytes % (A) 5 %; Neutrophils # (A) 9.7 k/uL (1.3-7.7); Neutrophils % (A) 71 %; Platelet Count 213 k/uL (150-450); RBC 4.05 m/uL (3.80-5.40); RDW 13.2 % (11.5-15.5); WBC 13.7 k/uL (3.8-10.6)
[2023-04-07 10:42] LABS: ALT 17 U/L (4-34); AST 40 U/L (14-36); African American GFR (CKD) >90 (>60 ml/min/1.73 sqM); Albumin 4.1 g/dL (3.5-5.0); Alkaline Phosphatase 54 U/L (38-126); Anion Gap 6 mmol/L; Blood Urea Nitrogen 11 mg/dL (7-17); Carbon Dioxide 23 mmol/L (22-30); Chloride 108 mmol/L (98-107); Glucose 96 mg/dL (74-99); Non-African American GFR(CKD) >90 (>60 ml/min/1.73 sqM); Potassium 3.8 mmol/L (3.5-5.1); Sodium 137 mmol/L (137-145); Total Bilirubin 0.5 mg/dL (0.2-1.3); Total Protein 6.5 g/dL (6.3-8.2)
--- NOTE | 2023-04-07 11:24 | CT ---
EXAMINATION TYPE: CT abdomen pelvis w con CT DLP: 672 mGycm, Automated exposure control for dose reduction was used. DATE OF EXAM: 04/07/2023 11:17 AM COMPARISON: CT abdomen pelvis most recent from 10/06/2022 CLINICAL INDICATION:Female, 27 years old with history of post operative abdominal pain; Post op pain from hernia repair done 04-06-2023 TECHNIQUE: Axial CT abdomen pelvis w con;Sagittal and coronal reformats were created on a separate w orkstation. Contrast used:100 ml mL of Isovue 300 with IV Contrast, (none if empty) Oral contrast used: without Oral Contrast (none if empty) FINDINGS: LOWER CHEST: Unremarkable ABDOMEN LIVER: Unremarkable GALLBLADDER AND BILE DUCTS: Unremarkable. PANCREAS: Unremarkable. SPLEEN: Unremarkable. ADRENAL GLANDS: Unremarkable. KIDNEYS AND URETERS: No evidence of hydronephrosis or renal calculus. The ureters are unremarkable. PELVIS BLADDER: Unremarkable REPRODUCTIVE: Unremarkable. ABDOMEN & PELVIS STOMACH AND BOWEL: No evidence of bowel obstruction. PERITONEUM/RETROPERITONEUM: Extensive pneumoperitoneum in the upper abdomen which could be compatible with patient's history of recent surgery. No organizing fluid collections visualized.. VASCULATURE: No evidence of aortic aneurysm. MUSCULOSKELETAL: No acute osseous abnormalities LYMPH NODES: No gross evidence for lymphadenopathy. SOFT TISSUE/ABDOMINAL WALL: Fat-containing umbilical hernia. IMPRESSION: Extensive pneumoperitoneum throughout the abdomen without definitive organizing fluid collection visu alized. No evidence for bowel obstruction. Correlate with surgical history. No definitive evidence fo r postop complication at this time.
== END 2023-04-07 12:46 | disposition home or self-care (01) ==
LOC: EC 09:33
DX: R10.9 Unspecified abdominal pain (principal); I10 Essential (primary) hypertension; J45.909 Unspecified asthma, uncomplicated; F17.290 Nicotine dependence, other tobacco product, uncomplicated; F12.90 Cannabis use, unspecified, uncomplicated; F41.9 Anxiety disorder, unspecified; F31.9 Bipolar disorder, unspecified; Z79.899 Other long term (current) drug therapy
CPT/HCPCS: 36415; 80053; 83605; 85025; 74177; 99284; 96374; 96376; 96361; J1170; Q9967

== ENCOUNTER 2023-04-17 23:05 | Emergency (ER) | payer MEDICARE, OTHER ==
--- NOTE | 2023-04-17 23:15 | ED ---
Abdominal Pain HPI - General Chief Complaint: Abdominal Pain Stated Complaint: abd pain-post op hernia pain Time Seen by Provider: 04/17/23 23:14 Source: patient Mode of arrival: ambulatory Limitations: no limitations - History of Present Illness Initial Comments: Sameera is a 27-year-old female who presents the ER today for reevaluation of abdominal pain. Patient reports that she underwent umbilical hernia repair with mesh on April 06. Patient states that on Tuesday, April 15 she found out that a good friend had committed suicide. Patient states that she is then crying unable to eat or drink and she is worried the crying has damaged the mesh or caused a problem in her abdomen. Patient states her whole body hurts she feels like she is getting dehydrated she did have a bowel movement today. She states she is just overwhelmed with grief and concerned that the not eating not drinking and crying could have caused a problem with her hernia repair. - Related Data Home Medications Medication Instructions Recorded Confirmed Aripiprazole Lauroxil [Aristada] 441 mg IM Q28D 10/06/22 04/06/23 cloNIDine HCL 0.1 mg PO DAILY PRN 03/31/23 04/06/23 Previous Rx's Medication Instructions Recorded Acetaminophen Tab [Tylenol] 650 mg PO Q6H #30 tab 04/06/23 Docusate [Colace] 100 mg PO BID #20 capsule 04/06/23 Ibuprofen [Motrin] 600 mg PO Q6HR PRN #40 tab 04/06/23 oxyCODONE HCL [OxyIR] 5 mg PO Q6H PRN 3 Days #10 tab 04/06/23 Allergies Allergy/AdvReac Type Severity Reaction Status Date / Time No Known Allergies Allergy Verified 04/07/23 09:45 Review of Systems ROS Statement: Those systems with pertinent positive or pertinent negative responses have been documented in the HPI. ROS Other: All systems not noted in ROS Statement are negative. 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 hemorrhoids, mole on anus. group b strep + during x2 History of Any Multi-Drug Resistant Organisms: None Reported Past Surgical History: Adenoidectomy, Breast Surgery, Section, Tonsillectomy Additional Past Surgical History / Comment(s): breast implants removed and replaced, hernia repain 04/06/23 Past Anesthesia/Blood Transfusion Reactions: No Reported Reaction Past Psychological History: Anxiety, Bipolar, Depression, PTSD Smoking Status: Current every day smoker, Vaper Past Alcohol Use History: None Reported Past Drug Use History: Marijuana - Past Family History Father Family Medical History: Hypertension Additional Family Medical History / Comment(s): Paternal grandpa-colon cancer. Mother Family Medical History: Cancer Additional Family Medical History / Comment(s): Bipolar, breast cancer. General Exam Limitations: no limitations General appearance: alert Head exam: Present: atraumatic Eye exam: Present: PERRL Respiratory exam: Absent: respiratory distress Cardiovascular Exam: Present: regular rate GI/Abdominal exam: Present: soft, tenderness (Appropriate postoperative tenderness), other (Well-healing surgical incisions). Absent: distended, guarding, rebound Neurological exam: Present: alert, oriented X3 Psychiatric exam: Present: other (Tearful) Skin exam: Present: warm, dry, other (Well-healing surgical incisions) Course Vital Signs 04/17/23 23:08 Temperature 98.5 F Pulse Rate 90 Respiratory 20 Rate Blood Pressure 135/74 O2 Sat by Pulse 100 Oximetry Medical Decision Making - Medical Decision Making Was pt. sent in by a medical professional or institution (, PA, MANAGER FIBER, urgent care, hospital, or care home...) When possible be specific @ -No Did you speak to anyone other than the patient for history (EMS, parent, family, police, friend...)? What history was obtained from this source @ -No Did you review nursing and triage notes (agree or disagree)? Why? @ -I reviewed and agree with nursing and triage notes Were old charts reviewed (outside hosp., previous admission, EMS record, old EKG, old radiological studies, urgent care reports/EKG's, care home records)? Report findings @ -Operative notes and previous ER visit was reviewed Differential Diagnosis (chest pain, altered mental status, abdominal pain women, abdominal pain men, vaginal bleeding, weakness, fever, dyspnea, syncope, headache, dizziness, GI bleed, back pain, seizure, CVA, palpatations, mental health)? @ -Differential Abdominal Pain Men: Appendicitis, cholecystitis, diverticulosis, ischemic bowel, pancreatitis, hepatitis, UTI, gastroenteritis, AAA, incarcerated hernia, bowel obstruction, constipation, inflammatory bowel, hepatitis, peptic ulcer disease, splenic infarction, perforated viscus, testicular torsion, this is not meant to be an al l-inclusive list EKG interpreted by me (3pts min.). @ -As above X-rays interpreted by me (1pt min.). @ -None done CT interpreted by me (1pt min.). @ -None done U/S interpreted by me (1pt. min.). @ -None done What testing was considered but not performed or refused? (CT, X-rays, U/S, labs)? Why? @ -Imaging was considered but not ordered as the patient does not have any significant pain on exam What meds were considered but not given or refused? Why? @ -None Did you discuss the management of the patient with other professionals (professionals i.e. , PA, MANAGER FIBER, lab, RT, psych nurse, manager social responsibility, machine lead burner, teacher, information systems security officer, case mgr)? Give summary @ -No Was smoking cessation discussed for >3mins.? @ -No Was critical care preformed (if so, how long)? @ -No Were there social determinants of health that impacted care today? How? (Homelessness, low income, unemployed, alcoholism, drug addiction, transportation, low edu. Level, literacy, decrease access to med. care, prison, rehab)? @ -No Was there de-escalation of care discussed even if they declined (Discuss DNR or withdrawal of care, Hospice)? DNR status @ -No What co-morbidities impacted this encounter? (DM, HTN, Smoking, COPD, CAD, Cancer, CVA, ARF, Chemo, Hep., AIDS, mental health diagnosis, sleep apnea, morbid obesity)? @ -None Was patient admitted / discharged? Hospital course, mention meds given and route, prescriptions, significant lab abnormalities, going to OR and other pertinent info. @ -Discharged The patient was seen and evaluated history was obtained from patient. Patient's primary concern is dehydration and possible injury due to crying. Her exam is unremarkable I have no concern for injury to her recently placed mesh. She did receive a liter of IV fluids. Her labs did reveal mild leukocytosis is likely reactive. At this time patient is feeling better and stable for discharge home. Undiagnosed new problem with uncertain prognosis? @ -No Drug Therapy requiring intensive monitoring for toxicity (Heparin, Nitro, Insulin, Cardizem)? @ -No Were any procedures done? @ -No Diagnosis/symptom? @ -Post operative abdominal pain Acute, or Chronic, or Acute on Chronic? @ -Default Uncomplicated (without systemic symptoms) or Complicated (systemic symptoms)? @ -Default Side effects of treatment? @ -No Exacerbation, Progression, or Severe Exacerbation? @ -No Poses a threat to life or bodily function? How? (Chest pain, [place], ME, pneumonia, PE, COPD, DKA, ARF, appy, cholecystitis, CVA, Diverticulitis, Homicidal, Suicidal, threat to staff... and all critical care pts) @ -Unlikely - Lab Data Result diagrams: 04/17/23 23:30 04/17/23 23:30 Lab Results 04/17/23 04/17/23 Range/Units 23:30 23:30 WBC 14.0 H (3.8-10.6) k/uL RBC 4.49 (3.80-5.40) m/uL Hgb 12.9 (11.4-16.0) gm/dL Hct 38.2 (34.0-46.0) % MCV 85.1 (80.0-100.0) fL MCH 28.8 (25.0-35.0) pg MCHC 33.8 (31.0-37.0) g/dL RDW 13.1 (11.5-15.5) % Plt Count 318 (150-450) k/uL MPV 7.6 Neutrophils % 70 % Lymphocytes % 20 % Monocytes % 4 % Eosinophils % 4 % Basophils % 1 % Neutrophils # 9.8 H (1.3-7.7) k/uL Lymphocytes # 2.8 (1.0-4.8) k/uL Monocytes # 0.5 (0-1.0) k/uL Eosinophils # 0.6 (0-0.7) k/uL Basophils # 0.1 (0-0.2) k/uL Sodium 140 (137-145) mmol/L Potassium 3.5 (3.5-5.1) mmol/L Chloride 109 H (98-107) mmol/L Carbon Dioxide 21 L (22-30) mmol/L Anion Gap 10 mmol/L BUN 10 (7-17) mg/dL Creatinine 0.61 (0.52-1.04) mg/dL Est GFR (CKD-EPI)AfAm >90 (>60 ml/min/1.73 sqM) Est GFR (CKD-EPI)NonAf >90 (>60 ml/min/1.73 sqM) Glucose 116 H (74-99) mg/dL Calcium 9.4 (8.4-10.2) mg/dL Total Bilirubin 0.5 (0.2-1.3) mg/dL AST 21 (14-36) U/L ALT 20 (4-34) U/L Alkaline Phosphatase 64 (38-126) U/L Total Protein 6.8 (6.3-8.2) g/dL Albumin 4.4 (3.5-5.0) g/dL Disposition Clinical Impression: Abdominal pain Disposition: HOME SELF-CARE Condition: Stable Is patient prescribed a controlled substance at d/c from ED?: No Referrals: Keenan Olson DO [Primary Care Provider] - 1-2 days
[2023-04-17 23:23] VITALS: TEMP 98.5
[2023-04-17 23:39] LABS: Basophils # (A) 0.1 k/uL (0-0.2); Basophils % (A) 1 %; Eosinophils # (A) 0.6 k/uL (0-0.7); Eosinophils % (A) 4 %; HCT 38.2 % (34.0-46.0); HGB 12.9 gm/dL (11.4-16.0); Lymphocytes # (A) 2.8 k/uL (1.0-4.8); Lymphocytes % (A) 20 %; MCH 28.8 pg (25.0-35.0); MCHC 33.8 g/dL (31.0-37.0); MCV 85.1 fL (80.0-100.0); Mean Platelet Volume 7.6; Monocytes # (A) 0.5 k/uL (0-1.0); Monocytes % (A) 4 %; Neutrophils # (A) 9.8 k/uL (1.3-7.7); Neutrophils % (A) 70 %; Platelet Count 318 k/uL (150-450); RBC 4.49 m/uL (3.80-5.40); RDW 13.1 % (11.5-15.5)
[2023-04-17] MEDS: SODIUM CHLORIDE 0.9% 1,000 ML IV ONE (23:47)
[2023-04-17 23:48] LABS: ALT 20 U/L (4-34); AST 21 U/L (14-36); African American GFR (CKD) >90 (>60 ml/min/1.73 sqM); Albumin 4.4 g/dL (3.5-5.0); Alkaline Phosphatase 64 U/L (38-126); Anion Gap 10 mmol/L; Blood Urea Nitrogen 10 mg/dL (7-17); Calcium 9.4 mg/dL (8.4-10.2); Carbon Dioxide 21 mmol/L (22-30); Chloride 109 mmol/L (98-107); Glucose 116 mg/dL (74-99); Non-African American GFR(CKD) >90 (>60 ml/min/1.73 sqM); Potassium 3.5 mmol/L (3.5-5.1); Sodium 140 mmol/L (137-145); Total Bilirubin 0.5 mg/dL (0.2-1.3); Total Protein 6.8 g/dL (6.3-8.2)
[2023-04-18 01:42] VITALS: BP 142/86; PULSE 78; RESP 18
== END 2023-04-18 01:23 | disposition home or self-care (01) ==
LOC: EC 23:05
DX: G89.18 Other acute postprocedural pain (principal); R10.9 Unspecified abdominal pain; J45.909 Unspecified asthma, uncomplicated; I10 Essential (primary) hypertension; F41.9 Anxiety disorder, unspecified; F31.9 Bipolar disorder, unspecified; F17.290 Nicotine dependence, other tobacco product, uncomplicated; F12.90 Cannabis use, unspecified, uncomplicated; Z79.899 Other long term (current) drug therapy
CPT/HCPCS: 36415; 80053; 85025; 96360; 99284

== ENCOUNTER → 2023-06-03 | Outpatient (CLI) | payer MEDICARE, OTHER ==
--- NOTE | 2023-06-03 08:15 | US ---
EXAMINATION TYPE: US gallbladder DATE OF EXAM: 06/03/2023 COMPARISON: CT 04/07/2023 CLINICAL INDICATION: Female, 27 years old with history of R10.11 RUQ PAIN; Hx of hernia repair Februa 2023. Patient states she has had pain and bloating ever since procedure. TECHNIQUE: Multiple sonographic images of the right upper quadrant are obtained. FINDINGS: EXAM MEASUREMENTS: Liver Length: 16.3 cm Gallbladder Wall: 0.16 cm CBD: 0.36 cm Right Kidney: 11.1 x 5.6 x 4.1 cm REPAIRER SHOE STICKS NOTES: Exam is limited due to gas. Pancreas: Slightly limited due to gas. Liver: Appears wnl Gallbladder: Appears anechoic Evidence for sonographic De La Torre's sign: No CBD: Appears wnl Right Kidney: No hydronephrosis or masses seen Anechoic area seen within the RUQ between liver and right kidney measuring 1.6 x 0.6 x 0.6 cm. Ques tion fluid? IMPRESSION: Possible focal fluid collection right upper quadrant as noted above. Otherwise unremarkable study.
== END | disposition home or self-care (01) ==
LOC: RADUSWWP 07:37
PROVIDERS: ATTEND Surgery
DX: R10.11 Right upper quadrant pain (principal)
CPT/HCPCS: 76705

== ENCOUNTER → 2023-06-06 | Outpatient (CLI) | payer MEDICARE, OTHER ==
--- NOTE | 2023-06-07 07:51 | NM ---
EXAMINATION TYPE: NM hepatobiliary w CCK DATE OF EXAM: 06/06/2023 COMPARISON: NONE CLINICAL INDICATION: Female, 27 years old with history of R10.11 ABD PAIN; TECHNIQUE: After the intravenous administration of 5.22 mCi Tc 99m Mebrofenin hepatobiliary scintigra phy is performed. Immediate images post injection. FINDINGS: There is satisfactory initial accumulation of tracer by the liver. The gallbladder is visualized wit hin 8 minutes. The small bowel activity is noted within 28 minutes. At one hour CCK was administere d, patient was injected with 1.4 mcg of Kinevac, and gallbladder ejection fraction is calculated at 8 9%. IMPRESSION: 1. Correlate for hypercontractile state.
== END | disposition home or self-care (01) ==
LOC: RADNMMAIN 12:37
PROVIDERS: ATTEND Surgery
DX: R10.11 Right upper quadrant pain (principal)
CPT/HCPCS: 78227; A9537; J2805

== ENCOUNTER 2023-07-23 09:47 | Emergency (ER) | payer MEDICARE, OTHER ==
--- NOTE | 2023-07-23 10:11 | ED ---
Recheck HPI - General Chief Complaint: Recheck/Abnormal Lab/Rx Stated Complaint: Vomiting, 10 wks Time Seen by Provider: 07/23/23 10:11 Source: patient, RN notes reviewed Mode of arrival: ambulatory Limitations: no limitations - History of Present Illness Initial Comments: 28-year-old female presented to the ER with a chief complaint of nausea and vomiting. Patient is G3, P2 approximately 10 weeks gestation. She reports she feels "unwell". This has been going on for the past 2 weeks. She was seen at [facility] received IV fluids and felt much better. She states her "blood is on fire". She admits to smoking 2 pack of cigarrettes daily and quit smoking marijuana 4 days ago. Patient does report she is having a burning sensation with urination and believes she has a UTI. She also reports a crampy abdominal pain but believes this is from vomiting. She denies any hematemesis. She denies any cough, congestion, fevers, chills, chest pain, shortness of breath, or peripheral edema. - Related Data Home Medications Medication Instructions Recorded Confirmed Aripiprazole Lauroxil [Aristada] 441 mg IM Q28D 10/06/22 04/06/23 cloNIDine HCL 0.1 mg PO DAILY PRN 03/31/23 04/06/23 Previous Rx's Medication Instructions Recorded Acetaminophen Tab [Tylenol] 650 mg PO Q6H #30 tab 04/06/23 Docusate [Colace] 100 mg PO BID #20 capsule 04/06/23 Ibuprofen [Motrin] 600 mg PO Q6HR PRN #40 tab 04/06/23 oxyCODONE HCL [OxyIR] 5 mg PO Q6H PRN 3 Days #10 tab 04/06/23 Cephalexin [Keflex] 500 mg PO Q6HR #40 cap 07/23/23 Ondansetron Odt [Zofran Odt] 4 mg PO Q8HR PRN #10 tab 07/23/23 Allergies Allergy/AdvReac Type Severity Reaction Status Date / Time cephalexin [From Keflex] Allergy Unknown Verified 07/23/23 09:54 Review of Systems ROS Statement: Those systems with pertinent positive or pertinent negative responses have been documented in the HPI. ROS Other: All systems not noted in ROS Statement are negative. 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 hemorrhoids, mole on anus. group b strep + during x2 History of Any Multi-Drug Resistant Organisms: None Reported Past Surgical History: Adenoidectomy, Breast Surgery, Section, Tonsillectomy Additional Past Surgical History / Comment(s): breast implants removed and replaced, hernia repain 04/06/23 Past Anesthesia/Blood Transfusion Reactions: No Reported Reaction Past Psychological History: Anxiety, Bipolar, Depression, PTSD Smoking Status: Current every day smoker, Vaper Past Alcohol Use History: None Reported Past Drug Use History: Marijuana - Past Family History Father Family Medical History: Hypertension Additional Family Medical History / Comment(s): Paternal grandpa-colon cancer. Mother Family Medical History: Cancer Additional Family Medical History / Comment(s): Bipolar, breast cancer. General Exam Limitations: no limitations General appearance: alert, in no apparent distress Respiratory exam: Present: normal lung sounds bilaterally. Absent: respiratory distress, wheezes, rales, rhonchi, stridor Cardiovascular Exam: Present: regular rate, normal rhythm, normal heart sounds. Absent: systolic murmur, diastolic murmur, rubs, gallop, clicks GI/Abdominal exam: Present: soft, normal bowel sounds. Absent: distended, tenderness, guarding, rebound, rigid Neurological exam: Present: alert, oriented X3, CN II-XII intact Skin exam: Present: warm, dry, intact, normal color. Absent: rash Course Vital Signs 07/23/23 07/23/23 07/23/23 09:48 11:33 13:05 Temperature 98.4 F 98.3 F Pulse Rate 89 77 71 Respiratory 18 16 16 Rate Blood Pressure 124/74 103/83 101/61 O2 Sat by Pulse 98 99 99 Oximetry Medical Decision Making - Medical Decision Making Was pt. sent in by a medical professional or institution (, PA, CUSTOMER CARE MANAGER, urgent care, hospital, or alf...) When possible be specific @ -No Did you speak to anyone other than the patient for history (EMS, parent, family, police, friend...)? What history was obtained from this source @ -No Did you review nursing and triage notes (agree or disagree)? Why? @ -I reviewed and agree with nursing and triage notes Were old charts reviewed (outside hosp., previous admission, EMS record, old EKG, old radiological studies, urgent care reports/EKG's, alf records)? Report findings @ -No old charts were reviewed Differential Diagnosis (chest pain, altered mental status, abdominal pain women, abdominal pain men, vaginal bleeding, weakness, fever, dyspnea, syncope, headache, dizziness, GI bleed, back pain, seizure, CVA, palpatations, mental health, musculoskeletal)? @ -Differential Abdominal Pain Women: Appendicitis, Cholecystitis, diverticulosis, ischemic bowel, pancreatitis, hepatitis, UTI, gastroenteritis, AAA, incarcerated hernia, bowel obstruction, constipation, inflammatory bowel, hepatitis, peptic ulcer disease, splenic infarction, perforated viscus, vulvit is, ovarian torsion, PID, kidney stone, placenta abruption, this is not meant to be an all-inclusive list EKG interpreted by me (3pts min.). @ -None X-rays interpreted by me (1pt min.). @ -None done CT interpreted by me (1pt min.). @ -None done U/S interpreted by me (1pt. min.). @ - ultrasound significant for a single IUP estimated 10 weeks 2 days gestation. Cardiac activity 165 bpm. What testing was considered but not performed or refused? (CT, X-rays, U/S, labs)? Why? @ -None What meds were considered but not given or refused? Why? @ -None Did you discuss the management of the patient with other professionals (professionals i.e. , PA, CUSTOMER CARE MANAGER, lab, RT, psych nurse, social professionals, 4th grade teacher, teacher, defence force senior officer, spring encaser)? Give summary @ -No Was smoking cessation discussed for >3mins.? @ -I discussed smoking cessation for greater than 3 minutes. The risk of smoking were discussed with the patient including but not limited to risks of cancer, stroke, coronary artery disease and COPD. Also discussed with patient were multiple methods of quitting smoking. Lastly we discussed the financial cost of smoking. Was critical care preformed (if so, how long)? @ -No Were there social determinants of health that impacted care today? How? (Homelessness, low income, unemployed, alcoholism, drug addiction, transportation, low edu. Level, literacy, decrease access to med. care, [place] [facility], rehab)? @ -No Was there de-escalation of care discussed even if they declined (Discuss DNR or withdrawal of care, Hospice)? DNR status @ -No What co-morbidities impacted this encounter? (DM, HTN, Smoking, COPD, CAD, Cancer, CVA, ARF, Chemo, Hep., AIDS, mental health diagnosis, sleep apnea, morbid obesity)? @ -Smoker, marijuana use Was patient admitted / discharged? Hospital course, mention meds given and route, prescriptions, significant lab abnormalities, going to OR and other pe rtinent info. @ -Discharge. 28-year-old female presented to the ER with a chief complaint of nausea and vomiting. Patient is approximately 10 weeks gestation. History and physical exam completed. Vitals stable upon arrival. Patient no signs of acute distress but does appear anxious during exam. No focal abdominal tenderness. Patient denies any vaginal bleeding. Laboratory studies obtained significant for white blood cell count 11.2 with a left shift which is likely reactive from nausea and vomiting. Urine with signs of possible infection with many bacteria. This may be residual from recent UTI. Serum hCG 196,965. ultrasound significant for a single IUP gestational age 10 weeks 2 days. Cardiac activity 165 bpm. Patient's blood type is A+. Upon reevaluation, patient resting comfortably in exam room stating symptoms have improved. Results discussed with patient, all questions answered. I advised close follow-up with SOFTWARE QUAL[facility] TE[facility]. Patient will be started on Keflex for UTI. Zofran prescribed. I discussed smoking cessation for greater than 3 minutes. The risk of smoking were discussed with the patient including but not limited to risks of cancer, stroke, coronary artery disease and COPD. Also discussed with patient were multiple methods of quitting smoking. Lastly we discussed the financial cost of smoking. Patient's current symptoms may be related from and withdrawal. Strict return parameters discussed. Patient discharged in stable condition. Patient verbally expressed understanding and agreement with care plan. Case discussed with ED attending, Dr. Blankenship. Undiagnosed new problem with uncertain prognosis? @ -No Drug Therapy requiring intensive monitoring for toxicity (Heparin, Nitro, Insulin, Cardizem)? @ -No Were any procedures done? @ -No Diagnosis/symptom? @ -/UTI/nicotine dependence Acute, or Chronic, or Acute on Chronic? @ -Acute Uncomplicated (without systemic symptoms) or Complicated (systemic symptoms)? @ -Uncomplicated Side effects of treatment? @ -No Exacerbation, Progression, or Severe Exacerbation? @ -No Poses a threat to life or bodily function? How? (Chest pain, [place], [place], pneumonia, PE, COPD, DKA, ARF, appy, cholecystitis, CVA, Diverticulitis, Homicidal, Suicidal, threat to staff... and all critical care pts) @ -No - Lab Data Result diagrams: 07/23/23 10:33 07/23/23 10:33 Lab Results 07/23/23 07/23/23 07/23/23 Range/Units 10:33 10:33 10:33 WBC 11.2 H (3.8-10.6) k/uL RBC 5.02 (3.80-5.40) m/uL Hgb 14.2 (11.4-16.0) gm/dL Hct 43.7 (34.0-46.0) % MCV 87.0 (80.0-100.0) fL MCH 28.4 (25.0-35.0) pg MCHC 32.6 (31.0-37.0) g/dL RDW 13.9 (11.5-15.5) % Plt Count 300 (150-450) k/uL MPV 7.9 Neutrophils % 73 % Lymphocytes % 21 % Monocytes % 3 % Eosinophils % 1 % Basophils % 1 % Neutrophils # 8.1 H (1.3-7.7) k/uL Lymphocytes # 2.4 (1.0-4.8) k/uL Monocytes # 0.4 (0-1.0) k/uL Eosinophils # 0.1 (0-0.7) k/uL Basophils # 0.1 (0-0.2) k/uL Sodium 137 (137-145) mmol/L Potassium 3.8 (3.5-5.1) mmol/L Chloride 102 (98-107) mmol/L Carbon Dioxide 26 (22-30) mmol/L Anion Gap 9 mmol/L BUN 8 (7-17) mg/dL Creatinine 0.50 L (0.52-1.04) mg/dL Est GFR (CKD-EPI)AfAm >90 (>60 ml/min/1.73 sqM) Est GFR (CKD-EPI)NonAf >90 (>60 ml/min/1.73 sqM) Glucose 80 (74-99) mg/dL Calcium 9.9 (8.4-10.2) mg/dL Total Bilirubin 0.5 (0.2-1.3) mg/dL AST 21 (14-36) U/L ALT 16 (4-34) U/L Alkaline Phosphatase 54 (38-126) U/L Total Protein 8.2 (6.3-8.2) g/dL Albumin 5.2 H (3.5-5.0) g/dL HCG, Quant 125806.0 mIU/mL Urine Color Yellow Urine Appearance Cloudy H (Clear) Urine pH 6.5 (5.0-8.0) Ur Specific [place] 1.028 (1.001-1.035) Urine Protein Trace H (Negative) Urine Glucose (UA) Negative (Negative) Urine Ketones Negative (Negative) Urine Blood Negative (Negative) Urine Nitrite Negative (Negative) Urine Bilirubin Negative (Negative) Urine Urobilinogen <2.0 (<2.0) mg/dL Ur Leukocyte Esterase Small H (Negative) Urine RBC 1 (0-5) /hpf Urine WBC 2 (0-5) /hpf Ur Squamous Epith Cells 4 (0-4) /hpf Urine Bacteria Many H (None) /hpf Urine Mucus Many H (None) /hpf Blood Type Blood Type Recheck Bld Type Recheck Status 07/23/23 Range/Units 11:20 WBC (3.8-10.6) k/uL RBC (3.80-5.40) m/uL Hgb (11.4-16.0) gm/dL Hct (34.0-46.0) % MCV (80.0-100.0) fL MCH (25.0-35.0) pg MCHC (31.0-37.0) g/dL RDW (11.5-15.5) % Plt Count (150-450) k/uL MPV Neutrophils % % Lymphocytes % % Monocytes % % Eosinophils % % Basophils % % Neutrophils # (1.3-7.7) k/uL Lymphocytes # (1.0-4.8) k/uL Monocytes # (0-1.0) k/uL Eosinophils # (0-0.7) k/uL Basophils # (0-0.2) k/uL Sodium (137-145) mmol/L Potassium (3.5-5.1) mmol/L Chloride (98-107) mmol/L Carbon Dioxide (22-30) mmol/L Anion Gap mmol/L BUN (7-17) mg/dL Creatinine (0.52-1.04) mg/dL Est GFR (CKD-EPI)AfAm (>60 ml/min/1.73 sqM) Est GFR (CKD-EPI)NonAf (>60 ml/min/1.73 sqM) Glucose (74-99) mg/dL Calcium (8.4-10.2) mg/dL Total Bilirubin (0.2-1.3) mg/dL AST (14-36) U/L ALT (4-34) U/L Alkaline Phosphatase (38-126) U/L Total Protein (6.3-8.2) g/dL Albumin (3.5-5.0) g/dL HCG, Quant mIU/mL Urine Color Urine Appearance (Clear) Urine pH (5.0-8.0) Ur Specific [place] (1.001-1.035) Urine Protein (Negative) Urine Glucose (UA) (Negative) Urine Ketones (Negative) Urine Blood (Negative) Urine Nitrite (Negative) Urine Bilirubin (Negative) Urine Urobilinogen (<2.0) mg/dL Ur Leukocyte Esterase (Negative) Urine RBC (0-5) /hpf Urine WBC (0-5) /hpf Ur Squamous Epith Cells (0-4) /hpf Urine Bacteria (None) /hpf Urine Mucus (None) /hpf Blood Type A Positive Blood Type Recheck A Pos Bld Type Recheck Status [facility] - Radiology Data Radiology results: report reviewed, image reviewed Disposition Clinical Impression: , UTI (urinary tract infection), Cannabis abuse, Nicotine dependence Disposition: HOME SELF-CARE Condition: Stable Instructions (If sedation given, give patient instructions): (ED), How to Stop Smoking (ED), Secondhand Smoke Exposure in Children (ED) Additional Instructions: Please follow-up with [facility]. I strongly encourage you to stop smoking with the help of yourself and baby. May take Zofran every 8 hours for nausea. Return to the ER any for any new or concerning symptoms. Prescriptions: Cephalexin [Keflex] 500 mg PO Q6HR #40 cap Ondansetron Odt [Zofran Odt] 4 mg PO Q8HR PRN #10 tab PRN Reason: Nausea Is patient prescribed a controlled substance at d/c from ED?: No Referrals: Keenan Olson DO [Primary Care Provider] - 1-2 days Time of Disposition: 12:55
[2023-07-23] MEDS: SODIUM CHLORIDE 0.9% 1,000 ML IV STA (10:29)
[2023-07-23] MEDS: ONDANSETRON 4 MG/2 ML VIAL IVP STA (10:30)
[2023-07-23 10:53] LABS: Basophils # (A) 0.1 k/uL (0-0.2); Basophils % (A) 1 %; Eosinophils # (A) 0.1 k/uL (0-0.7); Eosinophils % (A) 1 %; HCT 43.7 % (34.0-46.0); HGB 14.2 gm/dL (11.4-16.0); Lymphocytes # (A) 2.4 k/uL (1.0-4.8); Lymphocytes % (A) 21 %; MCH 28.4 pg (25.0-35.0); MCHC 32.6 g/dL (31.0-37.0); Mean Platelet Volume 7.9; Monocytes # (A) 0.4 k/uL (0-1.0); Monocytes % (A) 3 %; Neutrophils # (A) 8.1 k/uL (1.3-7.7); Neutrophils % (A) 73 %; Platelet Count 300 k/uL (150-450); RBC 5.02 m/uL (3.80-5.40); RDW 13.9 % (11.5-15.5); WBC 11.2 k/uL (3.8-10.6)
[2023-07-23 11:07] LABS: ALT 16 U/L (4-34); AST 21 U/L (14-36); African American GFR (CKD) >90 (>60 ml/min/1.73 sqM); Albumin 5.2 g/dL (3.5-5.0); Alkaline Phosphatase 54 U/L (38-126); Anion Gap 9 mmol/L; Blood Urea Nitrogen 8 mg/dL (7-17); Calcium 9.9 mg/dL (8.4-10.2); Carbon Dioxide 26 mmol/L (22-30); Chloride 102 mmol/L (98-107); Glucose 80 mg/dL (74-99); Non-African American GFR(CKD) >90 (>60 ml/min/1.73 sqM); Potassium 3.8 mmol/L (3.5-5.1); Sodium 137 mmol/L (137-145); Total Bilirubin 0.5 mg/dL (0.2-1.3); Total Protein 8.2 g/dL (6.3-8.2)
--- NOTE | 2023-07-23 11:17 | US ---
EXAMINATION TYPE: Transabdominal DATE OF EXAM: 07/23/2023 10:49 AM COMPARISON: NONE CLINICAL INDICATION: Female, 28 years old with history of abdominal pain; vomiting EXAM PERFORMED: Transabdominal (TA) EXAM MEASUREMENTS: GESTATIONAL AGE / DATING Physician Established: Not yet established Dates by LMP: (10 weeks/3 days) EDC: 02/15/2024 Dates by First Scan: No previous this is first scan Dates by Current Scan for: (10 weeks/2 days) EDC: 02/16/2024 MATERNAL ANATOMY Uterus: 10.4 x 11.1 x 11.2 cm Right Ovary: Obscured by bowel gas Left Ovary: Obscured by bowel gas Post CDS / Adnexa: wnl Presence of free fluid: no Presence of corpus luteal cyst: no Presence of subchorionic bleed: no GESTATION / SURVEY CRL: 3.43 cm (10 weeks/2 days) Heart Rate: 165 bpm Rhythm: Normal IUP: Viable IUP IMPRESSION: 1. Single live gestation estimated at 10 weeks 2 days gestation based on crown-rump length. Cardiac a ctivity measures 165 bpm.
[2023-07-23 11:37] LABS: Appearance,Urine Cloudy (Clear); Bacteria,Urine Many /hpf; Bilirubin,Urine Negative (Negative); Blood,Urine Negative (Negative); Color,Urine Yellow; Glucose,Urine (UA) Negative (Negative); Ketones,Urine Negative (Negative); Leukocyte Esterase,Urine Small (Negative); Mucus,Urine Many /hpf; Nitrite,Urine Negative (Negative); PH, Urine 6.5 (5.0-8.0); Protein,Urine Trace (Negative); RBC,Urine 1 /hpf (0-5); Specific Gravity,Urine 1.028 (1.001-1.035); Squamous Epithelial Cell,Urine 4 /hpf (0-4); Urobilinogen,Urine <2.0 mg/dL (<2.0); WBC,Urine 2 /hpf (0-5)
[2023-07-23 12:31] VITALS: RESP 16; TEMP 98.3
[2023-07-23 13:22] VITALS: BP 101/61; PULSE 71
== END 2023-07-23 13:05 | disposition home or self-care (01) ==
LOC: EC 09:47
DX: O23.41 Unspecified infection of urinary tract in pregnancy, first trimester (principal); N39.0 Urinary tract infection, site not specified; O99.321 Drug use complicating pregnancy, first trimester; F12.10 Cannabis abuse, uncomplicated; O99.331 Smoking (tobacco) complicating pregnancy, first trimester; F17.290 Nicotine dependence, other tobacco product, uncomplicated; Z88.1 Allergy status to other antibiotic agents; Z3A.10 10 weeks gestation of pregnancy
CPT/HCPCS: 36415; 86900; 86901; 80053; 85025; 81001; 84702; 76801; 99406; 99284; 96374; 96361; J2405

== ENCOUNTER 2023-09-22 15:30 | Emergency (ER) | payer MEDICARE, OTHER ==
[2023-09-22 15:45] VITALS: TEMP 98
--- NOTE | 2023-09-22 16:20 | ED ---
Female Urogenital HPI - General Chief complaint: Vaginal Bleeding Stated complaint: 19wks, vaginal bleeding Time Seen by Provider: 09/22/23 16:17 Source: patient, RN notes reviewed Mode of arrival: ambulatory Limitations: no limitations - History of Present Illness Initial comments: 28-year-old female at approximately 18 weeks gestation presenting with vaginal bleeding x 1 hour. States she was sitting on the couch when she suddenly started to experience heavy vaginal bleeding with suprapubic cramping. She states the blood is dark red. She has never had this before. She follows with an OB at [facility]. She states she was treated for BV, UTI, and chlamydia last week. Last Menstrual Period: 05/13/23 - Related Data Home Medications Medication Instructions Recorded Confirmed Aripiprazole Lauroxil [Aristada] 441 mg IM Q28D 10/06/22 04/06/23 cloNIDine HCL 0.1 mg PO DAILY PRN 03/31/23 04/06/23 Previous Rx's Medication Instructions Recorded Acetaminophen Tab [Tylenol] 650 mg PO Q6H #30 tab 04/06/23 Docusate [Colace] 100 mg PO BID #20 capsule 04/06/23 Ibuprofen [Motrin] 600 mg PO Q6HR PRN #40 tab 04/06/23 oxyCODONE HCL [OxyIR] 5 mg PO Q6H PRN 3 Days #10 tab 04/06/23 Cephalexin [Keflex] 500 mg PO Q6HR #40 cap 07/23/23 Ondansetron Odt [Zofran Odt] 4 mg PO Q8HR PRN #10 tab 07/23/23 Allergies Allergy/AdvReac Type Severity Reaction Status Date / Time cephalexin [From Keflex] Allergy Unknown Verified 07/23/23 09:54 Review of Systems ROS Statement: Those systems with pertinent positive or pertinent negative responses have been documented in the HPI. ROS Other: All systems not noted in ROS Statement are negative. 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 hemorrhoids, mole on anus. group b strep + during x2 History of Any Multi-Drug Resistant Organisms: None Reported Past Surgical History: Adenoidectomy, Breast Surgery, Section, Tonsillectomy Additional Past Surgical History / Comment(s): breast implants removed and replaced, hernia repain 04/06/23 Past Anesthesia/Blood Transfusion Reactions: No Reported Reaction Past Psychological History: Anxiety, Bipolar, Depression, PTSD Smoking Status: Current every day smoker, Vaper Past Alcohol Use History: None Reported Past Drug Use History: Marijuana - Past Family History Father Family Medical History: Hypertension Additional Family Medical History / Comment(s): Paternal grandpa-colon cancer. Mother Family Medical History: Cancer Additional Family Medical History / Comment(s): Bipolar, breast cancer. General Exam Limitations: no limitations General appearance: alert, in no apparent distress Head exam: Present: atraumatic, normocephalic, normal inspection Respiratory exam: Present: normal lung sounds bilaterally. Absent: respiratory distress, wheezes, rales, rhonchi, stridor Cardiovascular Exam: Present: regular rate, normal rhythm, normal heart sounds. Absent: systolic murmur, diastolic murmur, rubs, gallop, clicks GI/Abdominal exam: Present: soft, normal bowel sounds. Absent: distended, tenderness, guarding, rebound, rigid Neurological exam: Present: alert, oriented X3 Psychiatric exam: Present: normal affect, normal mood Skin exam: Present: warm, dry, intact, normal color. Absent: rash Course Vital Signs 09/22/23 09/22/23 09/22/23 15:41 16:49 17:06 Temperature 98 F Pulse Rate 97 74 66 Respiratory 16 16 18 Rate Blood Pressure 122/71 108/54 93/55 O2 Sat by Pulse 98 99 99 Oximetry 09/22/23 18:50 Temperature Pulse Rate 66 Respiratory 16 Rate Blood Pressure 114/68 O2 Sat by Pulse 99 Oximetry Medical Decision Making - Medical Decision Making Was pt. sent in by a medical professional or institution (, PA, SR. SOCIAL MEDIA & MOBILE MANAGER, urgent care, hospital, or shelter...) When possible be specific @ -No Did you speak to anyone other than the patient for history (EMS, parent, family, police, friend...)? What history was obtained from this source @ -No Did you review nursing and triage notes (agree or disagree)? Why? @ -I reviewed and agree with nursing and triage notes Were old charts reviewed (outside hosp., previous admission, EMS record, old EKG, old radiological studies, urgent care reports/EKG's, shelter records)? Report findings @ -No old charts were reviewed Differential Diagnosis (chest pain, altered mental status, abdominal pain women, abdominal pain men, vaginal bleeding, weakness, fever, dyspnea, syncope, headache, dizziness, GI bleed, back pain, seizure, CVA, palpatations, mental health, musculoskeletal)? @ -Differential Vaginal Bleeding: Spontaneous , threatened , molar , ectopic , bloody show, incompetent cervix, abruptioplacenta, placenta previa, uterine rupture, dysfunctional uterine bleeding, hemorrhage, uterine fibroids, this is not meant to be an all-inclusive list. EKG interpreted by me (3pts min.). @ -None X-rays interpreted by me (1pt min.). @ -None done CT interpreted by me (1pt min.). @ -None done U/S interpreted by me (1pt. min.). @ -Ultrasound revealed single live intrauterine with anechoic area along right side of placenta measuring. [id number] there is also an anechoic area within the middle of placenta measuring 1.1 x 1.0 x 0.7 cm, likely subchorionic hemorrhage What testing was considered but not performed or refused? (CT, X-rays, U/S, labs)? Why? @ -None What meds were considered but not given or refused? Why? @ -None Did you discuss the management of the patient with other professionals (professionals i.e. , PA, SR. SOCIAL MEDIA & MOBILE MANAGER, lab, RT, psych nurse, social insurance administrator, public relations consultant, teacher, boat officer, manager case management)? Give summary @ -No Was smoking cessation discussed for >3mins.? @ -No Was critical care preformed (if so, how long)? @ -No Were there social determinants of health that impacted care today? How? (Ho melessness, low income, unemployed, alcoholism, drug addiction, transportation, low edu. Level, literacy, decrease access to med. care, usp, rehab)? @ -No Was there de-escalation of care discussed even if they declined (Discuss DNR or withdrawal of care, Hospice)? DNR status @ -No What co-morbidities impacted this encounter? (DM, HTN, Smoking, COPD, CAD, Cancer, CVA, ARF, Chemo, Hep., AIDS, mental health diagnosis, sleep apnea, morbid obesity)? @ -None Was patient admitted / discharged? Hospital course, mention meds given and route, prescriptions, significant lab abnormalities, going to OR and other pertinent info. @ -Patient was discharged. Patient was seen and evaluated for vaginal bleeding x 1 hour at 18 weeks gestation. Vital signs and physical examination is unremarkable. Lab work including CBC, CMP, coagulations are unremarkable. Hemoglobin is stable at 12.8. Beta hCG is 10,632. Urine is positive for blood, negative for bacteria. Ultrasound reveals a single live intrauterine with an anechoic area along the right side of placenta and an anechoic area within the middle of placenta, likely subchorionic hemorrhage. Discussed diagnosis of subchorionic hemorrhage with patient. Advise close follow-up with OB tomorrow. Strict return precautions discussed with patient and she is agreeable to plan. Case was discussed with my attending Dr. Arteaga. Patient discharged in stable condition. Undiagnosed new problem with uncertain prognosis? @ -No Drug Therapy requiring intensive monitoring for toxicity (Heparin, Nitro, Insulin, Cardizem)? @ -No Were any procedures done? @ -No Diagnosis/symptom? @ -Subchorionic hemorrhage Acute, or Chronic, or Acute on Chronic? @ -Acute Uncomplicated (without systemic symptoms) or Complicated (systemic symptoms)? @ -Uncomplicated Side effects of treatment? @ -No Exacerbation, Progression, or Severe Exacerbation? @ -No Poses a threat to life or bodily function? How? (Chest pain, [place], [place], pneumonia, PE, COPD, DKA, ARF, appy, cholecystitis, CVA, Diverticulitis, Homicidal, Suicidal, threat to staff... and all critical care pts) @ -Unlikely at this time - Lab Data Result diagrams: 09/22/23 16:33 09/22/23 16:32 Lab Results 09/22/23 09/22/23 09/22/23 Range/Units 16:32 16:32 16:33 WBC 11.5 H (3.8-10.6) k/uL RBC 4.29 (3.80-5.40) m/uL Hgb 12.8 (11.4-16.0) gm/dL Hct 37.2 (34.0-46.0) % MCV 86.8 (80.0-100.0) fL MCH 29.9 (25.0-35.0) pg MCHC 34.5 (31.0-37.0) g/dL RDW 13.3 (11.5-15.5) % Plt Count 259 (150-450) k/uL MPV 7.7 Neutrophils % 69 % Lymphocytes % 23 % Monocytes % 3 % Eosinophils % 3 % Basophils % 0 % Neutrophils # 8.0 H (1.3-7.7) k/uL Lymphocytes # 2.6 (1.0-4.8) k/uL Monocytes # 0.4 (0-1.0) k/uL Eosinophils # 0.3 (0-0.7) k/uL Basophils # 0.1 (0-0.2) k/uL PT 9.6 L (10.0-12.5) sec INR 0.8 (<1.2) APTT 25.1 (22.0-30.0) sec Sodium 136 L (137-145) mmol/L Potassium 3.6 (3.5-5.1) mmol/L Chloride 106 (98-107) mmol/L Carbon Dioxide 23 (22-30) mmol/L Anion Gap 7 mmol/L BUN 7 (7-17) mg/dL Creatinine 0.47 L (0.52-1.04) mg/dL Est GFR (CKD-EPI)AfAm >90 (>60 ml/min/1.73 sqM) Est GFR (CKD-EPI)NonAf >90 (>60 ml/min/1.73 sqM) Glucose 83 (74-99) mg/dL Calcium 9.3 (8.4-10.2) mg/dL Total Bilirubin 0.2 (0.2-1.3) mg/dL AST 18 (14-36) U/L ALT 12 (4-34) U/L Alkaline Phosphatase 55 (38-126) U/L Total Protein 6.5 (6.3-8.2) g/dL Albumin 3.8 (3.5-5.0) g/dL HCG, Quant 25599.4 mIU/mL Urine Color Urine Appearance (Clear) Urine pH (5.0-8.0) Ur Specific Harrison (1.001-1.035) Urine Protein (Negative) Urine Glucose (UA) (Negative) Urine Ketones (Negative) Urine Blood (Negative) Urine Nitrite (Negative) Urine Bilirubin (Negative) Urine Urobilinogen (<2.0) mg/dL Ur Leukocyte Esterase (Negative) Urine RBC (0-5) /hpf Urine WBC (0-5) /hpf Ur Squamous Epith Cells (0-4) /hpf Urine Mucus (None) /hpf 09/22/23 Range/Units 16:34 WBC (3.8-10.6) k/uL RBC (3.80-5.40) m/uL Hgb (11.4-16.0) gm/dL Hct (34.0-46.0) % MCV (80.0-100.0) fL MCH (25.0-35.0) pg MCHC (31.0-37.0) g/dL RDW (11.5-15.5) % Plt Count (150-450) k/uL MPV Neutrophils % % Lymphocytes % % Monocytes % % Eosinophils % % Basophils % % Neutrophils # (1.3-7.7) k/uL Lymphocytes # (1.0-4.8) k/uL Monocytes # (0-1.0) k/uL Eosinophils # (0-0.7) k/uL Basophils # (0-0.2) k/uL PT (10.0-12.5) sec INR (<1.2) APTT (22.0-30.0) sec Sodium (137-145) mmol/L Potassium (3.5-5.1) mmol/L Chloride (98-107) mmol/L Carbon Dioxide (22-30) mmol/L Anion Gap mmol/L BUN (7-17) mg/dL Creatinine (0.52-1.04) mg/dL Est GFR (CKD-EPI)AfAm (>60 ml/min/1.73 sqM) Est GFR (CKD-EPI)NonAf (>60 ml/min/1.73 sqM) Glucose (74-99) mg/dL Calcium (8.4-10.2) mg/dL Total Bilirubin (0.2-1.3) mg/dL AST (14-36) U/L ALT (4-34) U/L Alkaline Phosphatase (38-126) U/L Total Protein (6.3-8.2) g/dL Albumin (3.5-5.0) g/dL HCG, Quant mIU/mL Urine Color Colorless Urine Appearance Clear (Clear) Urine pH 6.0 (5.0-8.0) Ur Specific Harrison 1.010 (1.001-1.035) Urine Protein Negative (Negative) Urine Glucose (UA) Negative (Negative) Urine Ketones Negative (Negative) Urine Blood Moderate H (Negative) Urine Nitrite Negative (Negative) Urine Bilirubin Negative (Negative) Urine Urobilinogen <2.0 (<2.0) mg/dL Ur Leukocyte Esterase Negative (Negative) Urine RBC 34 H (0-5) /hpf Urine WBC 1 (0-5) /hpf Ur Squamous Epith Cells <1 (0-4) /hpf Urine Mucus Rare H (None) /hpf Disposition Clinical Impression: Subchorionic hemorrhage Disposition: HOME SELF-CARE Condition: Stable Instructions (If sedation given, give patient instructions): Subchorionic Hemorrhage (ED) Additional Instructions: Please follow-up with your OB tomorrow. Please return to the Emergency Department if symptoms worsen or any other concerns. Is patient prescribed a controlled substance at d/c from ED?: No Referrals: Keenan Olson DO [Primary Care Provider] - 1-2 days Time of Disposition: 19:10
[2023-09-22 16:58] LABS: Basophils # (A) 0.1 k/uL (0-0.2); Basophils % (A) 0 %; Eosinophils # (A) 0.3 k/uL (0-0.7); Eosinophils % (A) 3 %; HCT 37.2 % (34.0-46.0); HGB 12.8 gm/dL (11.4-16.0); Lymphocytes # (A) 2.6 k/uL (1.0-4.8); Lymphocytes % (A) 23 %; MCH 29.9 pg (25.0-35.0); MCHC 34.5 g/dL (31.0-37.0); MCV 86.8 fL (80.0-100.0); Mean Platelet Volume 7.7; Monocytes # (A) 0.4 k/uL (0-1.0); Monocytes % (A) 3 %; Neutrophils % (A) 69 %; Platelet Count 259 k/uL (150-450); RBC 4.29 m/uL (3.80-5.40); RDW 13.3 % (11.5-15.5); WBC 11.5 k/uL (3.8-10.6)
[2023-09-22 17:06] LABS: Appearance,Urine Clear (Clear); Bilirubin,Urine Negative (Negative); Blood,Urine Moderate (Negative); Color,Urine Colorless; Glucose,Urine (UA) Negative (Negative); Ketones,Urine Negative (Negative); Leukocyte Esterase,Urine Negative (Negative); Mucus,Urine Rare /hpf; Nitrite,Urine Negative (Negative); Protein,Urine Negative (Negative); RBC,Urine 34 /hpf (0-5); Squamous Epithelial Cell,Urine <1 /hpf (0-4); Urobilinogen,Urine <2.0 mg/dL (<2.0); WBC,Urine 1 /hpf (0-5)
[2023-09-22 17:08] VITALS: PULSE 66
[2023-09-22 17:09] LABS: INR 0.8 (<1.2); Partial Thromboplastin Time 25.1 sec (22.0-30.0); Prothrombin Time 9.6 sec (10.0-12.5)
[2023-09-22 17:11] LABS: ALT 12 U/L (4-34); AST 18 U/L (14-36); African American GFR (CKD) >90 (>60 ml/min/1.73 sqM); Albumin 3.8 g/dL (3.5-5.0); Alkaline Phosphatase 55 U/L (38-126); Anion Gap 7 mmol/L; Blood Urea Nitrogen 7 mg/dL (7-17); Calcium 9.3 mg/dL (8.4-10.2); Carbon Dioxide 23 mmol/L (22-30); Chloride 106 mmol/L (98-107); Glucose 83 mg/dL (74-99); Non-African American GFR(CKD) >90 (>60 ml/min/1.73 sqM); Potassium 3.6 mmol/L (3.5-5.1); Sodium 136 mmol/L (137-145); Total Bilirubin 0.2 mg/dL (0.2-1.3); Total Protein 6.5 g/dL (6.3-8.2)
[2023-09-22 17:25] LABS: HCG,Quantitative Serum 10632.4 mIU/mL
--- NOTE | 2023-09-22 18:00 | US ---
EXAMINATION TYPE: US OB >= 14 wk fetus DATE OF EXAM: 09/22/2023 COMPARISON: 07/23/2023 CLINICAL INDICATION: Female, 28 years old with history of vaginal bleeding in ; Patient stat es dark vaginal bleeding, no clots. States cramping on the right side. TECHNIQUE: Transabdominal (TA) GESTATIONAL AGE / DATING Physician Established: (19 weeks/1 days) EDC: 02/15/2024 Dates by LMP: (19 weeks/1 days) EDC: 02/15/2024 Dates by First Scan: (19 weeks/0 days) EDC: 02/16/2024 Dates by Current Scan: (19 weeks/4 days) EDC: 02/12/2024 Beta HCG (if available): Not available at this time SURVEY IUP: Single PLACENTA: Anterior PREVIA: No Previa HALLIE: 14.6 cm Normal CERVICAL LENGTH (transabdominal: norm > 3.0cm): 3.4 cm BIOMETRY PRESENTATION: Breech LIE: Oblique BPD: 4.27 cm 19 weeks / 0 days HC: 17.08 cm 19 weeks / 5 days AC: 15.09 cm 20 weeks / 3 days FL: 2.85 cm 18 weeks / 6 days ESTIMATED WEIGHT IN GRAMS: 301 grams ESTIMATED WEIGHT IN LBS/OZ: 0 lbs. 11 oz. WEIGHT PERCENTAGE BASED ON ESTABLISHED DATES: 71% HC/AC: 1.13 Normal FL/AC: 19% HEART RATE: 149 bpm RHYTHM: Normal There is an anechoic area along the right side of the placenta measuring 1.7 x 1.2 x 1.5cm. There is also an anechoic area within the middle of the placenta measuring 1.1 x 1.0 x 0.7cm. IMPRESSION: 1.There is an anechoic area along the right side of the placenta measuring 1.7 x 1.2 x 1.5cm. Ther e is also an anechoic area within the middle of the placenta measuring 1.1 x 1.0 x 0.7cm. Correlatio n subchorionic hemorrhage and placental atkins.
[2023-09-22 18:55] VITALS: BP 114/68; RESP 16
== END 2023-09-22 19:15 | disposition home or self-care (01) ==
LOC: EC 15:30
DX: O20.8 Other hemorrhage in early pregnancy (principal); O99.332 Smoking (tobacco) complicating pregnancy, second trimester; F17.290 Nicotine dependence, other tobacco product, uncomplicated; Z3A.19 19 weeks gestation of pregnancy; Z88.1 Allergy status to other antibiotic agents
CPT/HCPCS: 36415; 76805; 80053; 81001; 84702; 85025; 85610; 85730; 99284

== ENCOUNTER 2024-01-13 05:35 | Observation (INO) | payer OTHER, MEDICARE ==
[2024-01-13 06:40] LABS: Basophils % (A) 0 %; Eosinophils # (A) 0.1 k/uL (0-0.7); Eosinophils % (A) 1 %; HCT 37.9 % (34.0-46.0); HGB 12.4 gm/dL (11.4-16.0); Lymphocytes # (A) 1.9 k/uL (1.0-4.8); Lymphocytes % (A) 13 %; MCH 28.3 pg (25.0-35.0); MCHC 32.7 g/dL (31.0-37.0); MCV 86.4 fL (80.0-100.0); Monocytes # (A) 0.3 k/uL (0-1.0); Monocytes % (A) 2 %; Neutrophils # (A) 11.5 k/uL (1.3-7.7); Neutrophils % (A) 82 %; Platelet Count 186 k/uL (150-450); RBC 4.39 m/uL (3.80-5.40); RDW 13.6 % (11.5-15.5)
[2024-01-13 07:02] LABS: INR 0.8 (<1.2); Prothrombin Time 9.4 sec (10.0-12.5)
[2024-01-13 07:03] LABS: Partial Thromboplastin Time 24.1 sec (22.0-30.0)
[2024-01-13 07:09] VITALS: BP 132/73; PULSE 100; RESP 16
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
[2024-01-13] MEDS: LACTATED RINGERS 500 ML IV ONE (07:29)
[2024-01-13] MEDS: LACTATED RINGERS 1,000 ML IV SCH (07:30)
[2024-01-13] MEDS: busPIRone HCl 5 MG TAB PO STA (07:30)
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
[2024-01-13] MEDS ORDERED: ACETAMINOPHEN IV (For NPO) 1,000 MG in EMPTY BAG 1 BAG IVPB STA (08:52)
[2024-01-13 09:29] LABS: Amphetamine Screen,Urine Not Detected (NotDetected); Barbiturate Screen,Urine Not Detected (NotDetected); Benzodiazepines Screen,Urine Not Detected (NotDetected); Cocaine Screen,Urine Not Detected (NotDetected); Methadone Screen, Urine Not Detected (NotDetected); Opiate Screen,Urine Not Detected (NotDetected); Oxycodone Screen, Urine Not Detected (NotDetected); Phencyclidine Screen,Urine Not Detected (NotDetected); Tricyclic Antidepressant,Urine Not Detected (NotDetected); Urn Cannabinoid Scrn Detected (NotDetected)
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
== END 2024-01-13 09:00 | disposition left against medical advice (07) ==
LOC: FBPOP 05:35 → 4FBP 06:38
PROVIDERS: ADMIT Obstetrics & Gynecology Obstetrics; ATTEND Obstetrics & Gynecology Obstetrics
DX: R10.9 Unspecified abdominal pain (principal); V43.53XA Car driver injured in collision with pick-up truck in traffic accident, initial encounter; W22.11XA Striking against or struck by driver side automobile airbag, initial encounter; Y92.410 Unspecified street and highway as the place of occurrence of the external cause; Z53.29 Procedure and treatment not carried out because of patient's decision for other reasons; Z3A.36 36 weeks gestation of pregnancy; O90.89 Other complications of the puerperium, not elsewhere classified; R57.9 Shock, unspecified; O99.334 Smoking (tobacco) complicating childbirth; F17.200 Nicotine dependence, unspecified, uncomplicated; Z79.2 Long term (current) use of antibiotics; Z79.899 Other long term (current) drug therapy
CPT/HCPCS: 99215; 96360; 36415; 86900; 86901; 85025; 85384; 85610; 85730; 86850; 80306; 76805; G0378; 99213

== ENCOUNTER → 2024-05-15 | Outpatient (CLI) | payer MEDICARE, OTHER ==
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
== END | disposition home or self-care (01) ==
LOC: RADXRMAIN 10:57
PROVIDERS: ATTEND Family Medicine
DX: J45.50 Severe persistent asthma, uncomplicated (principal)
CPT/HCPCS: 71046

== ENCOUNTER 2024-05-18 10:25 | Emergency (ER) | payer MEDICARE, OTHER ==
--- NOTE | 2024-05-18 10:53 | ED ---
Abdominal Pain HPI - General Chief Complaint: Abdominal Pain Stated Complaint: Abn labs Time Seen by Provider: 05/18/24 10:40 Source: patient, RN notes reviewed Mode of arrival: ambulatory Limitations: no limitations - History of Present Illness Initial Comments: This is a 28-year-old female presents to emergency department with chief complaint of nausea, vomiting, abdominal pain. Patient states that she is scheduled for outpatient cholecystectomy on Tuesday with Dr. Pineda. She also states that she has a history of recurrent leukocytosis since 2022 stating that last blood draw was completed in January 2024. Denies fevers, chills, hemoptysis, hematochezia. Endorses nonbloody diarrhea. - Related Data Home Medications Medication Instructions Recorded Confirmed busPIRone HCl [Buspar] 5 mg PO TID PRN 01/13/24 05/16/24 Albuterol Inhaler [Ventolin Hfa 1 - 2 puff INHALATION Q6H PRN 05/16/24 05/16/24 Inhaler] OXcarbazepine [Trileptal] 300 mg PO BID 05/16/24 05/16/24 Previous Rx's Medication Instructions Recorded Ondansetron Odt [Zofran Odt] 4 mg PO Q8HR PRN #10 tab 05/18/24 Allergies Allergy/AdvReac Type Severity Reaction Status Date / Time No Known Allergies Allergy Verified 05/18/24 10:36 Review of Systems ROS Statement: Those systems with pertinent positive or pertinent negative responses have been documented in the HPI. ROS Other: All systems not noted in ROS Statement are negative. 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 IBS, pt c/o n/v, stomach pain x 1 yr History of Any Multi-Drug Resistant Organisms: MRSA Date of last positivie culture/infection: 2019 MDRO Source:: left breast Past Surgical History: Adenoidectomy, Breast Surgery, Section, Tonsillectomy, Tubal Ligation Additional Past Surgical History / Comment(s): breast implants removed/replaced and removed again after infection, hernia repair 04/06/23, hemorrhoidectomy, c- section x3 - last one 2023 Past Anesthesia/Blood Transfusion Reactions: No Reported Reaction Past Psychological History: Anxiety, Bipolar, Depression, PTSD Smoking Status: Current every day smoker Past Drug Use History: Marijuana - Past Family History Father Family Medical History: Hypertension Additional Family Medical History / Comment(s): Paternal grandpa-colon cancer. Mother Family Medical History: Cancer Additional Family Medical History / Comment(s): Bipolar, breast cancer. General Exam - General Exam Comments Initial Comments: Visual Physical Exam Vital signs reviewed General: Well-appearing, nontoxic, no acute distress. Head: Normocephalic, atraumatic Eyes: PERRLA, EOMI ENT: Airway patent Chest: Nonlabored breathing Skin: No visual rash, normal skin tone Neuro: Alert and oriented 3 Musculoskeletal: No gross abnormalities Limitations: no limitations General appearance: alert, in no apparent distress ENT exam: Present: normal exam, mucous membranes moist Neck exam: Present: normal inspection. Absent: tenderness, meningismus, lymphadenopathy Respiratory exam: Present: normal lung sounds bilaterally. Absent: respiratory distress, wheezes, rales, rhonchi, stridor GI/Abdominal exam: Present: soft, tenderness (diffuse, RUQ), normal bowel sounds. Absent: distended, guarding, rebound, rigid Extremities exam: Present: normal inspection, full ROM, normal capillary refill. Absent: tenderness, pedal edema, joint swelling, calf tenderness Back exam: Present: normal inspection. Absent: CVA tenderness (R), CVA tenderness (L) Course Vital Signs 05/18/24 05/18/24 10:32 12:14 Temperature 98 F 99.0 F Pulse Rate 122 H 77 Respiratory 20 16 Rate Blood Pressure 100/69 123/81 O2 Sat by Pulse 98 98 Oximetry Medical Decision Making - Medical Decision Making Was pt. sent in by a medical professional or institution (, PA, PALAEONTOLOGIST, urgent care, hospital, or longterm...) When possible be specific @ -No Did you speak to anyone other than the patient for history (EMS, parent, family, police, friend...)? What history was obtained from this source @ -No Did you review nursing and triage notes (agree or disagree)? Why? @ -I reviewed and agree with nursing and triage notes Were old charts reviewed (outside hosp., previous admission, EMS record, old EKG, old radiological studies, urgent care reports/EKG's, longterm records)? Report findings @ -No old charts were reviewed Differential Diagnosis (chest pain, altered mental status, abdominal pain women, abdominal pain men, vaginal bleeding, weakness, fever, dyspnea, syncope, headache, dizziness, GI bleed, back pain, seizure, CVA, palpatations, mental health, musculoskeletal)? @ -Differential Abdominal Pain Women: Appendicitis, Cholecystitis, diverticulosis, ischemic bowel, pancreatitis, hepatitis, UTI, gastroenteritis, AAA, incarcerated hernia, bowel obstruction, constipation, inflammatory bowel, hepatitis, peptic ulcer disease, splenic infarction, perforated viscus, vulvitis, ovarian torsion, PID, kidney stone, placenta abruption, this is not meant to be an all-inclusive list EKG interpreted by me (3pts min.). @ -None X-rays interpreted by me (1pt min.). @ -None done CT interpreted by me (1pt min.). @ -None done U/S interpreted by me (1pt. min.). @ -Ultrasound of the gallbladder no evidence of acute process What testing was considered but not performed or refused? (CT, X-rays, U/S, labs)? Why? @ -None What meds were considered but not given or refused? Why? @ -None Did you discuss the management of the patient with other professionals (professionals i.e. , PA, PALAEONTOLOGIST, lab, RT, psych nurse, geriatric social worker, bindery helper, teacher, front desk officer, wrapper caser)? Give summary @ -No Was smoking cessation discussed for >3mins.? @ -No Was critical care preformed (if so, how long)? @ -No Were there social determinants of health that impacted care today? How? (Homelessness, low income, unemployed, alcoholism, drug addiction, transportation, low edu. Level, literacy, decrease access to med. care, usp, rehab)? @ -No Was there de-escalation of care discussed even if they declined (Discuss DNR or withdrawal of care, Hospice)? DNR status @ -No What co-morbidities impacted this encounter? (DM, HTN, Smoking, COPD, CAD, Cancer, CVA, ARF, Chemo, Hep., AIDS, mental health diagnosis, sleep apnea, mor bid obesity)? @ -None Was patient admitted / discharged? Hospital course, mention meds given and rou te, prescriptions, significant lab abnormalities, going to OR and other pertinent info. @ -Discharge. 28-year-old female presenting with nausea, vomiting, abdominal pain. Patient has diffuse abdominal pain to palpation with no signs of rebound tenderness rigidity. Pain is most notable in the right upper quadrant. She was offered pain medications and antiemetics and was declined. Laboratory test remarkable for leukocytosis of 12.0 and elevated neutrophils at 10.1 likely reactive secondary to emesis. CMP unremarkable. Urinalysis no signs infection, hCG negative. Ultrasound unremarkable. Patient is scheduled for outpatient cholecystectomy on Tuesday and recommend that she follows up as scheduled or return emergency room for any new or worsening symptoms over the next 2 days. Case discussed with Dr. Morel Undiagnosed new problem with uncertain prognosis? @ -No Drug Therapy requiring intensive monitoring for toxicity (Heparin, Nitro, Insulin, Cardizem)? @ -No Were any procedures done? @ -No Diagnosis/symptom? @ -Abdominal pain, nausea vomiting Acute, or Chronic, or Acute on Chronic? @ -Acute Uncomplicated (without systemic symptoms) or Complicated (systemic symptoms)? @ -Uncomplicated Side effects of treatment? @ -No Exacerbation, Progression, or Severe Exacerbation? @ -No Poses a threat to life or bodily function? How? (Chest pain, [place], [place], pneumonia, PE, COPD, DKA, ARF, appy, cholecystitis, CVA, Diverticulitis, Homicidal, Suicidal, threat to staff... and all critical care pts) @ -No - Lab Data Result diagrams: 05/18/24 11:26 05/18/24 11:26 Lab Results 05/18/24 05/18/24 05/18/24 Range/Units 11:26 11:26 11:26 WBC 12.0 H (3.8-10.6) k/uL RBC 4.94 (3.80-5.40) m/uL Hgb 13.5 (11.4-16.0) gm/dL Hct 41.1 (34.0-46.0) % MCV 83.3 (80.0-100.0) fL MCH 27.3 (25.0-35.0) pg MCHC 32.8 (31.0-37.0) g/dL RDW 13.3 (11.5-15.5) % Plt Count 237 (150-450) k/uL MPV 7.6 Neutrophils % 84 % Lymphocytes % 10 % Monocytes % 3 % Eosinophils % 2 % Basophils % 0 % Neutrophils # 10.1 H (1.3-7.7) k/uL Lymphocytes # 1.2 (1.0-4.8) k/uL Monocytes # 0.4 (0-1.0) k/uL Eosinophils # 0.2 (0-0.7) k/uL Basophils # 0.0 (0-0.2) k/uL Sodium 138 (137-145) mmol/L Potassium 3.6 (3.5-5.1) mmol/L Chloride 105 (98-107) mmol/L Carbon Dioxide 23 (22-30) mmol/L Anion Gap 10 mmol/L BUN 11 (7-17) mg/dL Creatinine 0.64 (0.52-1.04) mg/dL Est GFR (CKD-EPI)AfAm >90 (>60 ml/min/1.73 sqM) Est GFR (CKD-EPI)NonAf >90 (>60 ml/min/1.73 sqM) Glucose 142 H (74-99) mg/dL Plasma Lactic Acid Redd 1.1 (0.7-2.0) mmol/L Calcium 9.4 (8.4-10.2) mg/dL Total Bilirubin 0.6 (0.2-1.3) mg/dL AST 22 (14-36) U/L ALT 18 (4-34) U/L Alkaline Phosphatase 65 (38-126) U/L Total Protein 7.4 (6.3-8.2) g/dL Albumin 4.7 (3.5-5.0) g/dL Amylase 42 (30-110) U/L Lipase 34 (23-300) U/L Urine Color Urine Appearance (Clear) Urine pH (5.0-8.0) Ur Specific Kirksey (1.001-1.035) Urine Protein (Negative) Urine Glucose (UA) (Negative) Urine Ketones (Negative) Urine Blood (Negative) Urine Nitrite (Negative) Urine Bilirubin (Negative) Urine Urobilinogen (<2.0) mg/dL Ur Leukocyte Esterase (Negative) Urine RBC (0-5) /hpf Urine WBC (0-5) /hpf Ur Squamous Epith Cells (0-4) /hpf Urine Mucus (None) /hpf Urine HCG, Qual (Not Detectd) 05/18/24 05/18/24 Range/Units 12:05 12:05 WBC (3.8-10.6) k/uL RBC (3.80-5.40) m/uL Hgb (11.4-16.0) gm/dL Hct (34.0-46.0) % MCV (80.0-100.0) fL MCH (25.0-35.0) pg MCHC (31.0-37.0) g/dL RDW (11.5-15.5) % Plt Count (150-450) k/uL MPV Neutrophils % % Lymphocytes % % Monocytes % % Eosinophils % % Basophils % % Neutrophils # (1.3-7.7) k/uL Lymphocytes # (1.0-4.8) k/uL Monocytes # (0-1.0) k/uL Eosinophils # (0-0.7) k/uL Basophils # (0-0.2) k/uL Sodium (137-145) mmol/L Potassium (3.5-5.1) mmol/L Chloride (98-107) mmol/L Carbon Dioxide (22-30) mmol/L Anion Gap mmol/L BUN (7-17) mg/dL Creatinine (0.52-1.04) mg/dL Est GFR (CKD-EPI)AfAm (>60 ml/min/1.73 sqM) Est GFR (CKD-EPI)NonAf (>60 ml/min/1.73 sqM) Glucose (74-99) mg/dL Plasma Lactic Acid Redd (0.7-2.0) mmol/L Calcium (8.4-10.2) mg/dL Total Bilirubin (0.2-1.3) mg/dL AST (14-36) U/L ALT (4-34) U/L Alkaline Phosphatase (38-126) U/L Total Protein (6.3-8.2) g/dL Albumin (3.5-5.0) g/dL Amylase (30-110) U/L Lipase (23-300) U/L Urine Color Yellow Urine Appearance Cloudy H (Clear) Urine pH 5.5 (5.0-8.0) Ur Specific Kirksey 1.034 (1.001-1.035) Urine Protein Trace H (Negative) Urine Glucose (UA) Negative (Negative) Urine Ketones Trace H (Negative) Urine Blood Negative (Negative) Urine Nitrite Negative (Negative) Urine Bilirubin Negative (Negative) Urine Urobilinogen 2.0 (<2.0) mg/dL Ur Leukocyte Esterase Negative (Negative) Urine RBC 2 (0-5) /hpf Urine WBC 2 (0-5) /hpf Ur Squamous Epith Cells 11 H (0-4) /hpf Urine Mucus Few H (None) /hpf Urine HCG, Qual Not Detected (Not Detectd) Disposition Clinical Impression: Biliary colic, Nausea and vomiting Disposition: HOME SELF-CARE Condition: Good Instructions (If sedation given, give patient instructions): Biliary Colic (ED) Additional Instructions: Please return to the Emergency Department if symptoms worsen or any other concerns. Follow-up as scheduled on Tuesday with general surgeon for cholecystectomy. Prescriptions: Ondansetron Odt [Zofran Odt] 4 mg PO Q8HR PRN #10 tab PRN Reason: Nausea Is patient prescribed a controlled substance at d/c from ED?: No Referrals: Justine Ndiaye MD [Primary Care Provider] - 1-2 days Time of Disposition: 12:35
[2024-05-18 11:39] LABS: Basophils % (A) 0 %; Eosinophils # (A) 0.2 k/uL (0-0.7); Eosinophils % (A) 2 %; HCT 41.1 % (34.0-46.0); HGB 13.5 gm/dL (11.4-16.0); Lymphocytes # (A) 1.2 k/uL (1.0-4.8); Lymphocytes % (A) 10 %; MCH 27.3 pg (25.0-35.0); MCHC 32.8 g/dL (31.0-37.0); MCV 83.3 fL (80.0-100.0); Mean Platelet Volume 7.6; Monocytes # (A) 0.4 k/uL (0-1.0); Monocytes % (A) 3 %; Neutrophils # (A) 10.1 k/uL (1.3-7.7); Neutrophils % (A) 84 %; Platelet Count 237 k/uL (150-450); RBC 4.94 m/uL (3.80-5.40); RDW 13.3 % (11.5-15.5)
[2024-05-18 11:54] LABS: ALT 18 U/L (4-34); AST 22 U/L (14-36); African American GFR (CKD) >90 (>60 ml/min/1.73 sqM); Albumin 4.7 g/dL (3.5-5.0); Alkaline Phosphatase 65 U/L (38-126); Amylase 42 U/L (30-110); Anion Gap 10 mmol/L; Blood Urea Nitrogen 11 mg/dL (7-17); Calcium 9.4 mg/dL (8.4-10.2); Carbon Dioxide 23 mmol/L (22-30); Chloride 105 mmol/L (98-107); Glucose 142 mg/dL (74-99); Lipase 34 U/L (23-300); Non-African American GFR(CKD) >90 (>60 ml/min/1.73 sqM); Potassium 3.6 mmol/L (3.5-5.1); Sodium 138 mmol/L (137-145); Total Bilirubin 0.6 mg/dL (0.2-1.3); Total Protein 7.4 g/dL (6.3-8.2)
--- NOTE | 2024-05-18 12:01 | US ---
EXAMINATION TYPE: US gallbladder DATE OF EXAM: 05/18/2024 COMPARISON: US 2023 CLINICAL INDICATION: Female, 28 years old with history of RUQ ab pain, N/V; TECHNIQUE: Grayscale and color Doppler imaging of the right upper quadrant was performed. FINDINGS: EXAM MEASUREMENTS: Liver Length: 18.0 cm Gallbladder Wall: 0.2 cm CBD: 0.3 cm Right Kidney: 10.8 x 4.2 x 4.5 cm Pancreas: wnl Liver: wnl Gallbladder: wnl Evidence for sonographic De La Torre's sign: no CBD: wnl Right Kidney: wnl IMPRESSION: Negative X-Ray Adwoa Bundy, , 05/18/2024 11:59 AM
[2024-05-18 12:23] LABS: Appearance,Urine Cloudy (Clear); Bilirubin,Urine Negative (Negative); Blood,Urine Negative (Negative); Color,Urine Yellow; Glucose,Urine (UA) Negative (Negative); Ketones,Urine Trace (Negative); Leukocyte Esterase,Urine Negative (Negative); Mucus,Urine Few /hpf; Nitrite,Urine Negative (Negative); PH, Urine 5.5 (5.0-8.0); Protein,Urine Trace (Negative); RBC,Urine 2 /hpf (0-5); Specific Gravity,Urine 1.034 (1.001-1.035); Squamous Epithelial Cell,Urine 11 /hpf (0-4); WBC,Urine 2 /hpf (0-5)
[2024-05-18] MEDS: ONDANSETRON 4 MG/2 ML VIAL IVP STA (13:43)
[2024-05-18 13:55] VITALS: BP 114/70; PULSE 84; RESP 15; TEMP 98
== END 2024-05-18 13:58 | disposition home or self-care (01) ==
LOC: EC 10:25
DX: K80.50 Calculus of bile duct without cholangitis or cholecystitis without obstruction (principal); D72.819 Decreased white blood cell count, unspecified; F17.200 Nicotine dependence, unspecified, uncomplicated
CPT/HCPCS: 36415; 80053; 82150; 83605; 83690; 85025; 81001; 81025; 76705; 99284; 96374; J2405

== ENCOUNTER → 2024-05-21 | Day surgery (SDC) | payer MEDICARE, OTHER ==
[~2024-05-21] MED LIST changes: -ACETAMINOPHEN TAB 500 MG TAB PO PRN; -DEXAMETHASONE SOD PHOSPHATE 4 MG/ML 1 ML VIAL IV ONE; +GLYCOPYRROLATE 0.2 MG/ML 2 ML VIAL ONE; -HEPARIN SODIUM,PORCINE/PF 5,000 UNIT/0.5 ML SYRINGE SQ PRN; -HYDROmorphone 0.5 MG/0.5 ML SYRINGE IVP PRN; +KETOROLAC 15 MG/ML 1 ML VIAL ONE; -LACTATED RINGERS 1,000 ML IV SCH; +LIDOCAINE 1% INJ 10MG/ML (20 ML MDV) ONE; +MIDAZOLAM 2 MG/2 ML VIAL ONE; +NEOSTIGMINE 1 MG/ML 10 ML VIAL ONE; -ONDANSETRON 4 MG/2 ML VIAL IVP ONE; +PROPOFOL 10 MG/ML 20 ML VIAL IV ONE; -Pre Op ABX Message 1 EACH MISC MISCELLANE ONE; +ROCURONIUM 10 MG/ML (5 ML VIAL) IV ONE; +SCOPOLAMINE 1 MG/72 HR PATCH TRANSDERM ONE; +SUCCINYLCHOLINE CHLORIDE 200 MG/10 ML VIAL IV ONE; +fentaNYL (PF) 50 MCG/ML 2 ML AMP IVP PRN; +fentaNYL (PF) 50 MCG/ML 2 ML AMP ONE
[2024-05-21] MEDS: IV FLUID CONTINUATION 1,000 ML IV ONE (07:47)
[2024-05-21] MEDS: LIDOCAINE 1%-EPI 1:100,000 20 ML VIAL SQ ONE ×2 (07:57→09:01)
[2024-05-21] MEDS: LACTATED RINGERS 1,000 ML IV SCH (08:03)
[2024-05-21] MEDS: DEXAMETHASONE SOD PHOSPHATE 4 MG/ML 1 ML VIAL IV ONE (08:04)
[2024-05-21] MEDS: HEPARIN SODIUM,PORCINE 5,000 UNIT/ML 1 ML VIAL SQ PRN (08:04)
[2024-05-21] MEDS: ONDANSETRON 4 MG/2 ML VIAL IVP ONE (08:04)
[2024-05-21] MEDS: ACETAMINOPHEN TAB 500 MG TAB PO PRN (08:04)
--- NOTE | 2024-05-21 09:23 | P.OP ---
Date of Procedure: 05/21/24 Preoperative Diagnosis: Cholecystitis Postoperative Diagnosis: Cholecystitis Procedure(s) Performed: Laparoscopic cholecystectomy Anesthesia: RAFAEL Surgeon: Sourav Pineda Pathology: other (Gallbladder) Condition: stable Disposition: PACU Description of Procedure: The patient was placed on the operating table. The patient received a general endotracheal tube anesthesia. The patients abdomen was prepped and draped in the usual sterile fashion. Through an infraumbilical stab incision, the fasci a of the anterior abdominal wall was grasped with a pair of Kochers and then the Veress needle was placed in the peritoneal cavity. Position of the Veress needle was confirmed with positive drop test. The abdomen was then insufflated. After adequate insufflation, the 10 mm trocar was placed in the peritoneal cavity. Following this the laparoscope was placed in the peritoneal cavity. The patient was placed in the head-up, right side up position and then a 5 mm trocar was placed in the right lateral and right subcostal position under direct visualization. A 8 mm trocar was placed in the epigastric position. The gallbladder was grasped in the fundus and infundibulum. Traction on the gallbladder was placed in the lateral and the cephalad positions. The triangle of Calot was visualized.. The cystic duct was bluntly dissected until the union of the cystic duct and common bile duct was seen. A critical view of safety was achieved. The cystic duct was then divided and sealed with the Harmonic scissors. A PDS Endoloop was then placed throughout the cystic duct stump. The cystic artery divided and sealed with the Harmonic scissors. The gallbladder was then removed from the liver bed using Harmonic scissors. The gallbladder was then extracted through the epigastric port site. Operative field was checked for any bleeding spots and Harmonic scissors was used to coagulate the liver bed. The abdomen was irrigated. The trocars were removed. The skin was closed using interrupted 3-0 Vicryl suture. Dermabond dressing were applied. The patient tolerated the procedure well.
[2024-05-21 09:36] VITALS: TEMP 96.9
[2024-05-21] MEDS: HYDROmorphone 0.5 MG/0.5 ML SYRINGE IVP PRN (09:44)
[2024-05-21 11:02] VITALS: BP 124/79; PULSE 63; RESP 14
== END ==
LOC: OR 07:21
PROVIDERS: ATTEND Surgery
DX: K81.1 Chronic cholecystitis (principal); K58.9 Irritable bowel syndrome, unspecified; K64.9 Unspecified hemorrhoids; J45.909 Unspecified asthma, uncomplicated; I10 Essential (primary) hypertension; F17.200 Nicotine dependence, unspecified, uncomplicated; F12.90 Cannabis use, unspecified, uncomplicated; F31.9 Bipolar disorder, unspecified; F41.9 Anxiety disorder, unspecified; F43.10 Post-traumatic stress disorder, unspecified; Z79.51 Long term (current) use of inhaled steroids; Z79.899 Other long term (current) drug therapy
CPT/HCPCS: 47562; 81025; 88304; J2250; J0330; J1644; J1100; J2710; J0690; J2405; J2003; J3010; J1885; J2704; J1171; J1596

== ENCOUNTER 2024-06-26 01:07 | Emergency (ER) | payer MEDICARE, OTHER ==
[2024-06-26 01:15] VITALS: BP 125/78; PULSE 81; RESP 18; TEMP 98.5
--- NOTE | 2024-06-26 01:48 | ED ---
General Adult HPI - General Source: patient, EMS, RN notes reviewed Mode of arrival: EMS Limitations: no limitations <Juany Chavez - Last Filed: 06/26/24 03:59> <Bill Fuentes - Last Filed: 06/26/24 04:25> - General Chief complaint: Recheck/Abnormal Lab/Rx Stated complaint: not feeling well Time Seen by Provider: 06/26/24 01:43 - History of Present Illness Initial comments: 28-year-old female presenting via EMS for "not feeling well". States she cannot feel her face and her whole body feels numb and tingly. States she feels like her brain is melting out of her face. She states when she walks it feels like she is walking on hot coal. States she is also concerned because her white blood cell count was 13 at [facility]. She is with her 4-month-old daughter today. States she lives alone with her daughter. She does have a history of psychosis. (Juany Chavez) - Related Data Home Medications Medication Instructions Recorded Confirmed busPIRone HCl [Buspar] 5 mg PO TID PRN 01/13/24 05/21/24 Albuterol Inhaler [Ventolin Hfa 1 - 2 puff INHALATION Q6H PRN 05/16/24 05/21/24 Inhaler] OXcarbazepine [Trileptal] 300 mg PO BID 05/16/24 05/21/24 Previous Rx's Medication Instructions Recorded Ondansetron Odt [Zofran Odt] 4 mg PO Q8HR PRN #10 tab 05/18/24 Acetaminophen Tab [Tylenol] 650 mg PO Q6H #30 tab 05/21/24 Docusate [Colace] 100 mg PO BID #20 capsule 05/21/24 Ibuprofen [Motrin] 600 mg PO Q6HR PRN #40 tab 05/21/24 oxyCODONE HCL [OxyIR] 5 mg PO Q6H PRN 3 Days #10 tab 05/21/24 Allergies Allergy/AdvReac Type Severity Reaction Status Date / Time latex AdvReac Swelling Verified 06/26/24 01:10 Review of Systems ROS Other: All systems not noted in ROS Statement are negative. <Juany Chavez - Last Filed: 06/26/24 03:59> ROS Other: All systems not noted in ROS Statement are negative. <Bill Fuentes - Last Filed: 06/26/24 04:25> ROS Statement: Those systems with pertinent positive or pertinent negative responses have been documented in the HPI. 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 IBS, pt c/o n/v, stomach pain x 1 yr History of Any Multi-Drug Resistant Organisms: MRSA Date of last positivie culture/infection: 2019 MDRO Source:: left breast Past Surgical History: Adenoidectomy, Breast Surgery, Section, Tonsillectomy, Tubal Ligation Additional Past Surgical History / Comment(s): breast implants removed/replaced and removed again after infection, hernia repair 04/06/23, hemorrhoidectomy, c- section x3 - last one 2023 Past Anesthesia/Blood Transfusion Reactions: No Reported Reaction Past Psychological History: Anxiety, Bipolar, Depression, PTSD Smoking Status: Current every day smoker, Vaper Past Alcohol Use History: None Reported Past Drug Use History: Marijuana - Past Family History Father Family Medical History: Hypertension Additional Family Medical History / Comment(s): Paternal grandpa-colon cancer. Mother Family Medical History: Cancer Additional Family Medical History / Comment(s): Bipolar, breast cancer. <Nancy Chavezna - Last Filed: 06/26/24 03:59> General Exam Limitations: no limitations General appearance: alert, in no apparent distress, anxious Head exam: Present: atraumatic, normocephalic, normal inspection Eye exam: Present: normal appearance, PERRL, EOMI. Absent: scleral icterus, conjunctival injection, periorbital swelling ENT exam: Present: normal exam, normal oropharynx, mucous membranes moist Respiratory exam: Present: normal lung sounds bilaterally. Absent: respiratory distress, wheezes, rales, rhonchi, stridor Cardiovascular Exam: Present: regular rate, normal rhythm, normal heart sounds. Absent: systolic murmur, diastolic murmur, rubs, gallop, clicks GI/Abdominal exam: Present: soft, normal bowel sounds. Absent: distended, tenderness, guarding, rebound, rigid Neurological exam: Present: alert, oriented X3, CN II-XII intact Psychiatric exam: Present: manic, other (Displaying flight of ideas, patient is hyperverbal). Absent: homicidal ideation, suicidal ideation Skin exam: Present: warm, dry, intact, normal color. Absent: rash <Juany Chavez - Last Filed: 06/26/24 03:59> Course Vital Signs 06/26/24 01:10 Temperature 98.5 F Pulse Rate 81 Respiratory 18 Rate Blood Pressure 125/78 O2 Sat by Pulse 100 Oximetry EKG Findings - EKG Results: EKG: interpreted by ERMD (EKG reveals normal sinus rhythm with no acute ST changes. Ventricular rate 64 bpm, parable 153, QRS duration 93, QT/QTc 423/433) <Juany Chavez - Last Filed: 06/26/24 03:59> Medical Decision Making - Lab Data Result diagrams: 06/26/24 02:06 06/26/24 02:06 <Juany Chavez - Last Filed: 06/26/24 03:59> - Lab Data Result diagrams: 06/26/24 02:06 06/26/24 02:06 <Bill Fuentes - Last Filed: 06/26/24 04:25> - Medical Decision Making Was pt. sent in by a medical professional or institution (, PA, C[employer] RO[employer]ER, urgent care, hospital, or intermediate...) When possible be specific @ -No Did you speak to anyone other than the patient for history (EMS, parent, family, police, friend...)? What history was obtained from this source @ -No Did you review nursing and triage notes (agree or disagree)? Why? @ -I reviewed and agree with nursing and triage notes Were old charts reviewed (outside hosp., previous admission, EMS record, old EKG, old radiological studies, urgent care reports/EKG's, intermediate records)? Report findings @ -No old charts were reviewed Differential Diagnosis (chest pain, altered mental status, abdominal pain women, abdominal pain men, vaginal bleeding, weakness, fever, dyspnea, syncope, headache, dizziness, GI bleed, back pain, seizure, CVA, palpatations, mental health, musculoskeletal)? @ -Differential Mental Health Depression, anxiety, bipolar, psychosis, schizophrenia, borderline personality, situational depression, adjustment disorder, behavioral disorder, brain tumor, malingering, substance abuse, encephalopathy, medication reaction, dementia, hypothyroidism, degenerative neurologic disorder, lupus.... This is not meant to be all-inclusive list EKG interpreted by me (3pts min.). @ -As above X-rays interpreted by me (1pt min.). @ -None done CT interpreted by me (1pt min.). @ -None done U/S interpreted by me (1pt. min.). @ -None done What testing was considered but not performed or refused? (CT, X-rays, U/S, la bs)? Why? @ -None What meds were considered but not given or refused? Why? @ -None Did you discuss the management of the patient with other professionals (professionals i.e. DrAndrews, PA, C[employer]UCTION RO[employer]ER, lab, RT, psych nurse, health social work professor, house parent, teacher, senior administrative services officer, complex case manager)? Give summary @ -No Was smoking cessation discussed for >3mins.? @ -No Was critical care preformed (if so, how long)? @ -No Were there social determinants of health that impacted care today? How? (Homelessness, low income, unemployed, alcoholism, drug addiction, transportation, low edu. Level, literacy, decrease access to med. care, half-way, rehab)? @ -No Was there de-escalation of care discussed even if they declined (Discuss DNR or withdrawal of care, Hospice)? DNR status @ -No What co-morbidities impacted this encounter? (DM, HTN, Smoking, COPD, CAD, Cancer, CVA, ARF, Chemo, Hep., AIDS, mental health diagnosis, sleep apnea, morbid obesity)? @ -None Was patient admitted / discharged? Hospital course, mention meds given and route, prescriptions, significant lab abnormalities, going to OR and other pertinent info. @ -28-year-old female presenting for "not feeling well". States she has generalized tingling in her entire body and cannot feel her face. Patient is hyperverbal, displaying flight of ideas, appears to be manic. Vital signs are within acceptable limits. Lab work and urinalysis largely unremarkable. EKG reveals normal sinus rhythm with no acute ST changes. Patient was petitioned by ER nurse Pennie for mental health evaluation as there is concern for safety of the pt's 4 month old child due to patient's mental health state. Patient was medically cleared to be seen by EPS at this time. Case signed out to my ED attending Dr. Fuentes pending EPS evaluation and disposition. (Juany Chavez) - Lab Data Lab Results 06/26/24 06/26/24 06/26/24 Range/Units 01:57 02:06 02:06 WBC 8.47 (4.50-10.00) 10*3/uL RBC 4.52 (4.10-5.20) 10*6/uL Hgb 12.5 (12.0-15.0) g/dL Hct 37.1 L (37.2-46.3) % MCV 82.1 (80.0-97.0) fL MCH 27.7 (27.0-32.0) pg MCHC 33.7 (32.0-37.0) g/dL Plt Count 243 (140-440) 10*3/uL MPV 10.2 (9.5-12.2) fL Immature Gran % (Auto) 0.4 % Neutrophils % 60.7 % Lymphocytes % 29.2 % Monocytes % 5.9 % Eosinophils % 3.1 % Basophils % 0.7 % Immature Gran # 0.03 (0.00-0.04) 10*3/uL Neutrophils # 5.15 (1.80-7.70) 10*3/uL Lymphocytes # 2.47 (0.90-5.00) 10*3/uL Monocytes # 0.50 (0.20-1.00) 10*3/uL Eosinophils # 0.26 (0.04-0.35) 10*3/uL Basophils # 0.06 (0.00-0.10) 10*3/uL Sodium 137 (137-145) mmol/L Potassium 3.5 (3.5-5.1) mmol/L Chloride 105 (98-107) mmol/L Carbon Dioxide 23 (22-30) mmol/L Anion Gap 9 mmol/L BUN 12 (7-17) mg/dL Creatinine 0.60 (0.52-1.04) mg/dL Est GFR (CKD-EPI)AfAm >90 (>60 ml/min/1.73 sqM) Est GFR (CKD-EPI)NonAf >90 (>60 ml/min/1.73 sqM) Glucose 113 H (74-99) mg/dL Calcium 9.4 (8.4-10.2) mg/dL Total Bilirubin 0.5 (0.2-1.3) mg/dL AST 22 (14-36) U/L ALT 17 (4-34) U/L Alkaline Phosphatase 56 (38-126) U/L Total Protein 6.5 (6.3-8.2) g/dL Albumin 4.0 (3.5-5.0) g/dL Urine Color Urine Appearance (Clear) Urine pH (5.0-8.0) Ur Specific [place] (1.001-1.035) Urine Protein (Negative) Urine Glucose (UA) (Negative) Urine Ketones (Negative) Urine Blood (Negative) Urine Nitrite (Negative) Urine Bilirubin (Negative) Urine Urobilinogen (<2.0) mg/dL Ur Leukocyte Esterase (Negative) Urine RBC (0-5) /hpf Urine WBC (0-5) /hpf Ur Squamous Epith Cells (0-4) /hpf Hyaline Casts (0-2) /lpf Urine Mucus (None) /hpf Urine HCG, Qual (Not Detectd) Influenza Type A (PCR) Not Detected (Not Detectd) Influenza Type B (PCR) Not Detected (Not Detectd) RSV (PCR) Not Detected (Not Detectd) SARS-CoV-2 (PCR) Not Detected (Not Detectd) 06/26/24 06/26/24 Range/Units 02:30 02:30 WBC (4.50-10.00) 10*3/uL RBC (4.10-5.20) 10*6/uL Hgb (12.0-15.0) g/dL Hct (37.2-46.3) % MCV (80.0-97.0) fL MCH (27.0-32.0) pg MCHC (32.0-37.0) g/dL Plt Count (140-440) 10*3/uL MPV (9.5-12.2) fL Immature Gran % (Auto) % Neutrophils % % Lymphocytes % % Monocytes % % Eosinophils % % Basophils % % Immature Gran # (0.00-0.04) 10*3/uL Neutrophils # (1.80-7.70) 10*3/uL Lymphocytes # (0.90-5.00) 10*3/uL Monocytes # (0.20-1.00) 10*3/uL Eosinophils # (0.04-0.35) 10*3/uL Basophils # (0.00-0.10) 10*3/uL Sodium (137-145) mmol/L Potassium (3.5-5.1) mmol/L Chloride (98-107) mmol/L Carbon Dioxide (22-30) mmol/L Anion Gap mmol/L BUN (7-17) mg/dL Creatinine (0.52-1.04) mg/dL Est GFR (CKD-EPI)AfAm (>60 ml/min/1.73 sqM) Est GFR (CKD-EPI)NonAf (>60 ml/min/1.73 sqM) Glucose (74-99) mg/dL Calcium (8.4-10.2) mg/dL Total Bilirubin (0.2-1.3) mg/dL AST (14-36) U/L ALT (4-34) U/L Alkaline Phosphatase (38-126) U/L Total Protein (6.3-8.2) g/dL Albumin (3.5-5.0) g/dL Urine Color Yellow Urine Appearance Clear (Clear) Urine pH 5.5 (5.0-8.0) Ur Specific [place] 1.030 (1.001-1.035) Urine Protein Trace H (Negative) Urine Glucose (UA) Negative (Negative) Urine Ketones Negative (Negative) Urine Blood Moderate H (Negative) Urine Nitrite Negative (Negative) Urine Bilirubin Negative (Negative) Urine Urobilinogen 2.0 (<2.0) mg/dL Ur Leukocyte Esterase Trace H (Negative) Urine RBC 5 (0-5) /hpf Urine WBC 2 (0-5) /hpf Ur Squamous Epith Cells 3 (0-4) /hpf Hyaline Casts 10 H (0-2) /lpf Urine Mucus Many H (None) /hpf Urine HCG, Qual Not Detected (Not Detectd) Influenza Type A (PCR) (Not Detectd) Influenza Type B (PCR) (Not Detectd) RSV (PCR) (Not Detectd) SARS-CoV-2 (PCR) (Not Detectd) Disposition <Juany Chavez - Last Filed: 06/26/24 03:59> Is patient prescribed a controlled substance at d/c from ED?: No <Bill Fuentes - Last Filed: 06/26/24 04:25> Clinical Impression: Psychosis Disposition: HOME SELF-CARE Condition: Good Instructions (If sedation given, give patient instructions): Paresthesia (ED), Psychotic Disorder (ED) Referrals: None,Stated [Primary Care Provider] - 1-2 days
[2024-06-26 03:05] LABS: Basophils # (A) 0.06 10*3/uL (0.00-0.10); Basophils % (A) 0.7 %; Eosinophils # (A) 0.26 10*3/uL (0.04-0.35); Eosinophils % (A) 3.1 %; HCT 37.1 % (37.2-46.3); HGB 12.5 g/dL (12.0-15.0); Lymphocytes # (A) 2.47 10*3/uL (0.90-5.00); Lymphocytes % (A) 29.2 %; MCH 27.7 pg (27.0-32.0); MCHC 33.7 g/dL (32.0-37.0); MCV 82.1 fL (80.0-97.0); Mean Platelet Volume 10.2 fL (9.5-12.2); Monocytes % (A) 5.9 %; Neutrophils # (A) 5.15 10*3/uL (1.80-7.70); Neutrophils % (A) 60.7 %; Platelet Count 243 10*3/uL (140-440); RBC 4.52 10*6/uL (4.10-5.20); RDW 12.9 % (11.5-14.5); WBC 8.47 10*3/uL (4.50-10.00)
[2024-06-26 03:10] LABS: ALT 17 U/L (4-34); AST 22 U/L (14-36); African American GFR (CKD) >90 (>60 ml/min/1.73 sqM); Alkaline Phosphatase 56 U/L (38-126); Anion Gap 9 mmol/L; Blood Urea Nitrogen 12 mg/dL (7-17); Calcium 9.4 mg/dL (8.4-10.2); Carbon Dioxide 23 mmol/L (22-30); Chloride 105 mmol/L (98-107); Glucose 113 mg/dL (74-99); Non-African American GFR(CKD) >90 (>60 ml/min/1.73 sqM); Potassium 3.5 mmol/L (3.5-5.1); Sodium 137 mmol/L (137-145); Total Bilirubin 0.5 mg/dL (0.2-1.3); Total Protein 6.5 g/dL (6.3-8.2)
[2024-06-26 03:24] LABS: Appearance,Urine Clear (Clear); Bilirubin,Urine Negative (Negative); Blood,Urine Moderate (Negative); Color,Urine Yellow; Glucose,Urine (UA) Negative (Negative); Hyaline Casts,Urine 10 /lpf (0-2); Ketones,Urine Negative (Negative); Leukocyte Esterase,Urine Trace (Negative); Mucus,Urine Many /hpf; Nitrite,Urine Negative (Negative); PH, Urine 5.5 (5.0-8.0); Protein,Urine Trace (Negative); RBC,Urine 5 /hpf (0-5); Squamous Epithelial Cell,Urine 3 /hpf (0-4); WBC,Urine 2 /hpf (0-5)
[2024-06-26 03:45] LABS: Influenza A Not Detected (Not Detectd); Influenza B Not Detected (Not Detectd); RSV Not Detected (Not Detectd)
[2024-06-26 06:02] LABS: Amphetamine Screen,Urine Not Detected (NotDetected); Barbiturate Screen,Urine Not Detected (NotDetected); Benzodiazepines Screen,Urine Not Detected (NotDetected); Cocaine Screen,Urine Not Detected (NotDetected); Methadone Screen, Urine Not Detected (NotDetected); Opiate Screen,Urine Not Detected (NotDetected); Oxycodone Screen, Urine Not Detected (NotDetected); Phencyclidine Screen,Urine Not Detected (NotDetected); Tricyclic Antidepressant,Urine Not Detected (NotDetected); Urn Cannabinoid Scrn Detected (NotDetected)
== END 2024-06-26 04:45 | disposition home or self-care (01) ==
LOC: EC 01:07
DX: F29 Unspecified psychosis not due to a substance or known physiological condition (principal); F17.290 Nicotine dependence, other tobacco product, uncomplicated; Z91.040 Latex allergy status; Z11.52 Encounter for screening for COVID-19
CPT/HCPCS: 36415; 80053; 80306; 81001; 81025; 82075; 85025; 87636; 93005; 99284